=== PATIENT | female | born 1955 | race Caucasian/White ===

== ENCOUNTER 2018-03-17 02:49 | Emergency (ER) | payer MEDICAID ==
[~2018-03-17] VITALS: Ht 170.2 cm; Wt 51.7 kg
[~2018-03-17 02:49] MED LIST: CARB200T PO; HALO0.5T4 PO; HALO2TAB7 GT; LEVE250T2 PO; QUET400T PO; QUET400T3
[2018-03-17 02:56] VITALS: BP 130/78
[2018-03-17] MEDS ORDERED: ONDANSETRON 4 MG TAB.RAPDIS ONE (03:23)
[2018-03-17] MEDS ORDERED: IBUPROFEN 400 MG TABLET ONE (03:23)
[2018-03-17] MEDS ORDERED: IBUPROFEN 400 MG TABLET PO ONE (03:30)
[2018-03-17] MEDS ORDERED: ONDANSETRON 4 MG TAB.RAPDIS SL ONE (03:30)
[2018-03-17 04:12] LABS: BASOPHILS % (AUTO) 0.5 % (0.0-2.0); EOSINOPHILS % (AUTO) 0.1 % (0.0-6.0); HEMATOCRIT 36 % (33-45); HEMOGLOBIN 12.1 g/dL (11.5-14.8); LYMPHOCYTES # (AUTO) 1.1 /CMM (0.8-4.8); LYMPHOCYTES % (AUTO) 27.7 % (20.0-44.0); MEAN CORPUSCULAR HGB CONC 34 g/dl (31.0-36.0); MEAN CORPUSCULAR VOLUME 87 fL (82-100); MONOCYTES # (AUTO) 0.5 /CMM (0.1-1.30); MONOCYTES % (AUTO) 12.5 % (2.0-12.0); NEUTROPHILS # (AUTO) 2.3 /CMM (1.8-8.9); NEUTROPHILS % (AUTO) 59.2 % (43.0-81.0); PLATELET COUNT (AUTO) 133 /CMM (150-450); RDW COEFFICIENT OF VARIATION 15.1 (11.5-15.0); RED BLOOD CELL COUNT(AUTO) 4.14 MIL/uL (4.0-5.2); WHITE BLOOD COUNT (AUTO) 3.8 K/uL (4.3-11.0)
[2018-03-17 04:29] LABS: BILIRUBIN,DIRECT 0.1 mg/dL (0.0-0.2); BILIRUBIN,TOTAL 0.3 mg/dL (0.2-1.0); CALCIUM, SERUM 8.5 mg/dL (8.5-10.1); CREATININE 0.6 mg/dL (0.6-1.3); POTASSIUM 3.6 mmol/L (3.5-5.1); TOTAL PROTEIN, SERUM 7.2 g/dL (6.4-8.2)
== END 2018-03-17 05:43 | disposition home or self-care (01) ==
LOC: ER 02:50
DX: M54.2 Cervicalgia (principal); R10.10 Upper abdominal pain, unspecified; K70.9 Alcoholic liver disease, unspecified; G40.909 Epilepsy, unspecified, not intractable, without status epilepticus; F32.9 Major depressive disorder, single episode, unspecified; F17.210 Nicotine dependence, cigarettes, uncomplicated; Z90.49 Acquired absence of other specified parts of digestive tract
CPT/HCPCS: 36415; 80048-TC; 80076-TC; 83690-TC; 85025-TC; A4606; Q0162; Z7610

== ENCOUNTER 2018-03-17 14:09 | Emergency (ER) | payer MEDICAID ==
[~2018-03-17] VITALS: Ht 170.2 cm; Wt 54.0 kg
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
--- NOTE | 2018-03-17 15:10 | NUR ---
electroencephalogram technologist at bedside.
--- NOTE | 2018-03-17 16:50 | NUR ---
Patient discharged to home in stable condition. Written and verbal after care instructions given. Patient verbalizes understanding of instruction.Refused placement,able to transfer to her W/C and wheeled herself out of ER
[2018-03-17 16:56] VITALS: BP 118/72
--- NOTE | 2018-03-17 16:57 | NUR ---
Patient discharged to home in stable condition. Written and verbal after care instructions given. Patient verbalizes understanding of instruction.
== END 2018-03-17 16:56 | disposition home or self-care (01) ==
LOC: ER 14:13
DX: M25.551 Pain in right hip (principal); G40.909 Epilepsy, unspecified, not intractable, without status epilepticus; F32.9 Major depressive disorder, single episode, unspecified; F20.9 Schizophrenia, unspecified; F17.200 Nicotine dependence, unspecified, uncomplicated; F10.10 Alcohol abuse, uncomplicated; Z90.49 Acquired absence of other specified parts of digestive tract
CPT/HCPCS: 73502; A4606; Z7610

== ENCOUNTER 2018-03-28 08:19 | Emergency (ER) | payer MEDICAID ==
[~2018-03-28] VITALS: Ht 154.9 cm; Wt 60.3 kg
--- NOTE | 2018-03-28 08:40 | NUR ---
ASSISTED PT TO BED BAZAN TO URINATE. PT NOTED ABLE TO MOVE EXTREMITIES WITHOUT ANY DIFFICULTIES.
--- NOTE | 2018-03-28 08:50 | NUR ---
NO NOTED BRUISING/ INJURIES ON THE ENTIRE BODY. ABLE TO MOVE WITHOUT ANY DIFFICULTIES. AWARE.
[2018-03-28] MEDS ORDERED: ACETAMINOPHEN 325 MG TABLET PO ONE (09:00)
--- NOTE | 2018-03-28 09:30 | NUR ---
SHY OFFICERS AT BS.
--- NOTE | 2018-03-28 11:12 | NUR ---
PT KICKING AND SCREAMING AT STAFF, USING PROFANITY WORDS. TRIED TO CALMED HER DOWN BUT KEPT SCREAMING AND DEMANDING FOR FOOD.
--- NOTE | 2018-03-28 11:29 | NUR ---
ROBBY CORPORATE INVESTIGATOR AT BS.
--- NOTE | 2018-03-28 11:35 | NUR ---
SW received a call from ED requesting for SW to offer resources to pt. prior to discharge. SW met with pt. bedside. Pt. is alert and oriented x 3. Pt. appears unkempt and disheveled. Pt. informed SW she has an SS worker who is usually with her, but is out sick. Pt. states she wants to go to [place] [facility] and wants something to eat. Pt. states she is unable to ambulate and has been wheelchair bound, however per staff pt. is ambulatory. JEREMIAS informed pt. she will get her a bus token to get to [place] and [employer] since is medically cleared for discharge. Pt. became belligerent, yelling at saying " I am not going anywhere, can't you see I cannot walk for 11 years". Pt. kept on insisting that she has a wheelchair, however pt. arrived without one. Pt. continued to yell at and is refusing to leave the hospital. ED CRN Cy and pt' s RN Talha were informed to pt's behavior.
--- NOTE | 2018-03-28 11:40 | NUR ---
PT NON-COMPLIANT WITH CARE. REFUSES TO COOPERATE. MD AWARE. REFUSES TO BE DISCHARGED.
--- NOTE | 2018-03-28 14:00 | NUR ---
PT REFUSES TO HAVE HER VS CHECKED.
--- NOTE | 2018-03-28 15:30 | NUR ---
PT NOTED WALKED TO THE RESTROOM. NOTED AMBULATORY IN A STEADY GAIT.
[2018-03-28 15:53] VITALS: BP 138/74
== END 2018-03-28 15:55 | disposition home or self-care (01) ==
LOC: ER 08:22
DX: M25.511 Pain in right shoulder (principal); F20.9 Schizophrenia, unspecified; G40.909 Epilepsy, unspecified, not intractable, without status epilepticus; F31.9 Bipolar disorder, unspecified; F10.10 Alcohol abuse, uncomplicated; F17.200 Nicotine dependence, unspecified, uncomplicated; Z98.890 Other specified postprocedural states; Z59.0 Homelessness
CPT/HCPCS: A4606; Z7610

== ENCOUNTER 2018-03-29 19:21 | Emergency (ER) | payer MEDICAID ==
[~2018-03-29] VITALS: Ht 162.6 cm; Wt 59.9 kg
--- NOTE | 2018-03-29 19:40 | NUR ---
pt refuse blood draw. glenna walden made aware.
[2018-03-29] MEDS ORDERED: MAG HYDROX/AL HYDROX/SIMETH 30 ML UDC ONE (19:51)
--- NOTE | 2018-03-29 19:52 | NUR ---
noted pt eating hot cheetos despite being told not to eat or dring until all results comes back. er md made aware.
[2018-03-29] MEDS ORDERED: MAG HYDROX/AL HYDROX/SIMETH 30 ML UDC PO ONE (20:00)
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
--- NOTE | 2018-03-29 21:08 | NUR ---
Patient discharged to home in stable condition. Written and verbal after care instructions given. Patient verbalizes understanding of instruction.
[2018-03-29 21:20] VITALS: BP 131/64
== END 2018-03-29 21:21 | disposition home or self-care (01) ==
LOC: ER 19:22
DX: R10.84 Generalized abdominal pain (principal); G89.29 Other chronic pain; G40.909 Epilepsy, unspecified, not intractable, without status epilepticus; F31.9 Bipolar disorder, unspecified; F25.9 Schizoaffective disorder, unspecified; F17.200 Nicotine dependence, unspecified, uncomplicated; F10.10 Alcohol abuse, uncomplicated; Z98.890 Other specified postprocedural states
CPT/HCPCS: 74021; A4606; Z7610

== ENCOUNTER 2018-04-01 04:09 | Emergency (ER) | payer MEDICAID ==
[~2018-04-01] VITALS: Ht 165.1 cm; Wt 72.6 kg
[2018-04-01 04:09] VITALS: BP 139/53
[2018-04-01] MEDS ORDERED: METRONIDAZOLE 500 MG TABLET PO ONE (04:30)
[2018-04-01] MEDS ORDERED: CEFTRIAXONE 500 MG VIAL IM ONE (04:30)
[2018-04-01] MEDS ORDERED: AZITHROMYCIN 250 MG TABLET PO ONE (04:30)
[2018-04-01] MEDS ORDERED: METRONIDAZOLE 500 MG TABLET ONE (04:37)
[2018-04-01] MEDS ORDERED: AZITHROMYCIN 250 MG TABLET ONE (04:37)
[2018-04-01] MEDS ORDERED: CEFTRIAXONE 500 MG VIAL ONE (04:41)
[2018-04-01] MEDS ORDERED: LIDOCAINE /MPF 1% VIAL 5 ML VIAL ONE (04:41)
== END 2018-04-01 05:00 | disposition home or self-care (01) ==
LOC: ER 04:15
DX: G40.909 Epilepsy, unspecified, not intractable, without status epilepticus (principal); F31.9 Bipolar disorder, unspecified; F25.9 Schizoaffective disorder, unspecified; F10.10 Alcohol abuse, uncomplicated; F17.200 Nicotine dependence, unspecified, uncomplicated
CPT/HCPCS: A4606; J0696; J3490; Z7610

== ENCOUNTER 2018-04-02 19:57 | Inpatient (IN) | payer MEDICAID ==
[~2018-04-02] VITALS: Ht 167.6 cm; Wt 68.0 kg
--- NOTE | 2018-04-02 20:05 | NUR ---
TRIAGED AND PLACED IN LOBBY AT THIS TIME AFTER C/O "I HAVE PAIN WHICH IS ALWAYS THERE". DENIES RECENT INJURY. NO S/S OF ACUTE DISTRESS NOTED AT THIS TIME. RESP EVEN AND UNLABORED. INFORMED PT WILL BE ASSIGNED ROOM SOON ONE IS AVAILABLE.
--- NOTE | 2018-04-02 21:38 | NUR ---
PT NOTED SLEEPING IN LOBBY AND WHEN WOKEN UP STARTS YELLING "LEAVE ME ALONE".
--- NOTE | 2018-04-02 22:59 | NUR ---
PT URINATED ON FLOOR. SECURITY AND NURSE ATTEMPTED TO ASSIST PT BUT PT STARTED USING AGGRESSIVE LANGUAGE "FUCK YOU".
--- NOTE | 2018-04-02 23:54 | NUR ---
PT REMAINS RESTING WITH EYES CLOSED SNORING AND STILL WHEN AWAKENED FOR ROOM ASSIGNMENT SCREAMS LOUD IN LOBBY "WHAT DO YOU WANT FROM ME, LEAVE ME ALONE".
--- NOTE | 2018-04-03 02:10 | NUR ---
PT AGREES TO GO TO ROOM. WC ACCESS PROVIDED. REFUSES TO WEAR GOWN AND TO GET IN BED.
[2018-04-03] MEDS ORDERED: HYDROCODONE/APAP 10/325MG 1 EA TABLET ONE (02:46)
[2018-04-03] MEDS ORDERED: HYDROCODONE/APAP 10/325MG 1 EA TABLET PO ONE (03:00)
--- NOTE | 2018-04-03 03:00 | NUR ---
AGREES TO WEAR GOWNAND GO FOR CT SCAN AFTER RECEIVING MEDICATION.
--- NOTE | 2018-04-03 04:45 | NUR ---
REFUSES IV HL FOR ADMISSION. ASKS FOR SANDWICH AND WARM BLANKET. MD NOTIFIED.
[2018-04-03] MEDS ORDERED: MORPHINE SULFATE INJ 4 MG/ML DISP.SYRIN IV PRN (05:30)
[2018-04-03] MEDS ORDERED: ZOLPIDEM TARTRATE 5 MG TABLET PO PRN (05:30)
[2018-04-03] MEDS ORDERED: ACETAMINOPHEN 325 MG TABLET PO PRN (05:30)
[2018-04-03] MEDS ORDERED: ONDANSETRON HCL/PF 4 MG/2 ML VIAL IVP PRN (05:30)
[2018-04-03] MEDS ORDERED: MAGNESIUM HYDROXIDE 30 ML UDC PO PRN (05:30)
[2018-04-03] MEDS ORDERED: Z GUARD REMEDY 2 OZ OINT TP PRN (05:30)
[2018-04-03] MEDS ORDERED: MAG HYDROX/AL HYDROX/SIMETH 30 ML UDC PO PRN (05:30)
--- NOTE | 2018-04-03 05:30 | NUR ---
AWAITING INSURANCE MD TO CALL BACK.
--- NOTE | 2018-04-03 05:48 | NUR ---
DR. ROCHA SPEAKING TO DR. SIMON ABOUT TRANSFER.
--- NOTE | 2018-04-03 06:08 | NUR ---
STILL AWAITING CALL ABCK FROM [employer]FT FUEL[employer]. PT UPDATED.
--- NOTE | 2018-04-03 06:46 | NUR ---
PER CHARGE NURSE "THE MEDICAL DOCTOR WILL CALL BACK HERE".
--- NOTE | 2018-04-03 07:21 | NUR ---
CALL FROM [facility]. PLANNING ON TRANSFERING PATIENT TO [facility]. FACESHEET AND CHART FAXED TO [phone]
--- NOTE | 2018-04-03 07:30 | NUR ---
RECEIVED REPORT FOR AUDELIA.
[2018-04-03] MEDS: LEVETIRACETAM (250 MG) 250 MG TABLET PO SCH ×2 (09:00→16:21)
[2018-04-03] MEDS: CARBAMAZEPINE 200 MG TABLET PO SCH ×2 (09:00→16:21)
[2018-04-03] MEDS ORDERED: QUETIAPINE FUMARATE 600 MG SCH (09:00)
[2018-04-03] MEDS ORDERED: HYDROCODONE/APAP 5/325MG 1 EACH TABLET ONE (11:02)
[2018-04-03] MEDS ORDERED: HYDROCODONE/APAP 5/325MG 1 EACH TABLET PO PRN (11:30)
--- NOTE | 2018-04-03 12:38 | NUR ---
REPORT GIVEN TO SAMSON GIBBS FOR AUDELIA.
--- NOTE | 2018-04-03 12:44 | NUR ---
PATIENT TRANSPORTED TO [facility] VIA STRETCHER. RNSAMSON TO PROVIDE AUDELIA.
[2018-04-03 13:00] VITALS: BP 143/57
--- NOTE | 2018-04-03 13:00 | NUR ---
NAPHTHALENE STILL OPERATOR PATIENT A/OX3, BREATHING EVEN AND UNLABORED, PATIENT STILL COMPLAINING OF GENERALIZED PAIN. NO DISTRESS NOTED, PATIENT REFUSES TO HAVE PERIPHERAL IV INSERTED. PATIENT REFUSED ANY ASSESSMENT AT THIS TIME. KEPT PATIENT COMFORTABLE, CALL LIGHT WITHIN [facility], WILL CONTINUE TO MONITOR.
[2018-04-03 13:15] VITALS: BP 143/57
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
--- NOTE | 2018-04-03 14:45 | NUR ---
RN NOTES PATIENT AGREED TO HAVE SKIN ASSESSMENT ON HER FRONT SIDE, BUT PATIENT REFUSED ASSESSMENT ON HER BACK SIDE AND LEGS. PER PATIENT, SHE'S IN TOO MUCH PAIN, BUT I SAW PATIENT MOVE HER BLE. PATIENT EATING AT THIS TIME. OFFERED ASSISTANCE WITH ADL CARE BUT PATIENT REFUSED. EXPLAINED RISKS AND BENEFITS. NEEDS ATTENDED AND MET, CALL LIGHT WITHIN REACH, WILL CONTINUE TO MONITOR.
[2018-04-03 15:29] VITALS: BP 114/65
[2018-04-03] MEDS ORDERED: QUETIAPINE FUMARATE 100 MG TABLET PO SCH ×2 (17:00→22:00)
--- NOTE | 2018-04-03 18:20 | NUR ---
RN NOTES PATIENT RESTING, NO BEHAVIORAL DISTURBANCE AT THIS TIME, ATE DINNER AND TOLERATED WELL. STILL REFUSING IV AND COMPLETE BODY SKIN ASSESSMENT. PATIENT IS IN NO DISTRESS, NEEDS ATTENDED, CALL LIGHT WITHIN REACH, WILL ENDORSE TO CUTTING AND PRINTING MACHINE OPERATOR FOR AUDELIA.
--- NOTE | 2018-04-03 19:35 | NUR ---
RN OPENING NOTES [facility] SAMSON. FOUND Pt ASLEEP IN BED. NO S/S OF ACUTE DISTRESS OR SOB NOTED. RESPIRATIONS EVEN AND UNLABORED WITH EQUAL CHEST RISE AND FALL. Pt IS KNOWN TO BE A/OX3, VERBAL, ABLE TO MAKE NEEDS KNOWN. Pt IS REFUSING IV ACCESS, MD AWARE. SAFETY MEASURES IN PLACE. BED LOW, LOCKED, HOB ELEVATED, SIDE RAILS UP, CALL LIGHT AND BEDSIDE TABLE WITHIN REACH. WILL CONTINUE TO MONITOR Pt THROUGHOUT THE NIGHT.
[2018-04-03 20:00] VITALS: BP 110/64
[2018-04-03] MEDS: QUETIAPINE FUMARATE 100 MG TABLET PO SCH (22:00)
--- NOTE | 2018-04-03 22:00 | NUR ---
RN NOTES Pt DID NOT WANT TO WAKE UP AND TAKE HER SCHEDULED SEROQUEL. TRIED TO ASK Pt 2 MORE TIMES, BUT Pt CONTINUED TO REFUSE TO SIT UP TO TAKE MED, AND KEPT CLOSING HER EYES TO SLEEP. RETURNED MED.
--- NOTE | 2018-04-04 05:01 | NUR ---
RN NOTES Pt REFUSED AM LAB DRAW THIS AM. WILL TRY AGAIN LATER WHEN Pt IS MORE AWAKE.
--- NOTE | 2018-04-04 06:21 | NUR ---
RN CLOSING NOTES NO SIGNIFICANT CHANGES IN Pt's CONDITION. Pt REMAINS STABLE AT THIS TIME. NO S/S OF ACUTE DISTRESS OR SOB NOTED DURING THE SHIFT. Pt SLEPT WELL WITH EVEN AND UNLABORED RESPIRATIONS. ALL NEEDS MET AND ATTENDED TO. SAFETY MEASURES IN PLACE. WILL ENDORSE TO DAYSHIFT RN FOR Pt's AUDELIA.
--- NOTE | 2018-04-04 07:38 | NUR ---
MS RN OPENING NOTES RECEIVED PT FROM NIGHTSHIFT NURSE IN STABLE CONDITION. PT IS A/O X3. NO SOB OR ACUTE SIGNS OF DISTRESS. BREATHING IS EVEN AND UNLABORED. NO IV PRESENT PT HAS REFUSED. MADE AWARE ACCORDING TO THE NIGHTSHIFT NURSE. PT ALSO REFUSED AM LAB DRAWS. BED IN LOW LOCKED POSITION, SIDE RAILS X 2 CALL LIGHT WITHIN REACH, BED ALARM ON. WILL CONTINUE TO MONITOR
[2018-04-04 08:00] VITALS: BP 127/70
[2018-04-04] MEDS: LEVETIRACETAM (250 MG) 250 MG TABLET PO SCH ×2 (09:00→16:46)
[2018-04-04] MEDS: QUETIAPINE FUMARATE 100 MG TABLET PO SCH ×3 (09:22→21:36)
[2018-04-04] MEDS: CARBAMAZEPINE 200 MG TABLET PO SCH ×2 (09:23→16:58)
[2018-04-04] MEDS: HYDROCODONE/APAP 5/325MG 1 EACH TABLET PO PRN (09:36)
--- NOTE | 2018-04-04 10:11 | NUR ---
MS RN NOTES: PAIN MANAGEMENT DR. TEJADA MADE AWARE THAT PT'S CURRENT PAIN MANAGEMENT IS INEFFECTIVE. PER DR. TEJADA " GIVE HER AN EXTRA DOSE OF NORCO 5/325 AND ORDER NORCO 10/325 PRN Q6HR"
[2018-04-04] MEDS ORDERED: HYDROCODONE/APAP 10/325MG 1 EA TABLET PO PRN (10:30)
[2018-04-04 15:50] VITALS: BP 101/68
--- NOTE | 2018-04-04 18:29 | NUR ---
MS RN CLOSING NOTES PT REMAINS STABLE. ALL NEEDS WERE MET DURING SHIFT AND ORDERS CARRIED OUT ACCORDINGLY. ALL DUE MEDS GIVEN WITH THE EXCEPTION OF THOSE WHICH SHE REFUSED. PT FURTHER REFUSED ALL BLOOD DRAWS. PAIN PROPERLY MANAGED WITH PO NORCO. NO ACUTE CHANGES IN CONDITION THROUGHOUT SHIFT. SAFETY MEASURERS REMAIN IN PLACE. WILL ENDORSE TO NIGHTSHIFT NURSE FOR AUDELIA
--- NOTE | 2018-04-04 20:22 | NUR ---
RECIEVED MS HAIDER ASLEEP IN HER BED SEMIFOWLERS POSITION. PRODUCT/INDUSTRY CONSULTANT ATTEMPTED TO TAKE AWAY HER DINNER TRAY AND SHE REFUSED TO LET IT GO STATING SHE WILL EAT IT LATER. RESP EVEN AND UNLABORED. SKIN WARM AND DRY.
[2018-04-04 20:38] VITALS: BP 106/76
--- NOTE | 2018-04-05 04:18 | NUR ---
CLOSING NOTES: mS. MALONEY SLEPT THRU MOST OF THE SHIFT ONLY AWAKENING TO GO USE THE BSC OR TO TAKE BITES FROM HER DINNER TRAY THEN GOING BACK TO SLEEP. I WOKE HER AND WAS ABLE TO CONVINVE HER TO DRINK A CARTON OF APPLE JUICE. SHE SWALLOW W/O PROBLEMS. NOTED SHE CHANGES HER OWN POSITION NOTING NO INDICATION OF PAIN EXPRESSED. A GOOD AND COMFORTABLE NIGHT
--- NOTE | 2018-04-05 07:30 | NUR ---
RN NOTES RECEIVED PATIENT AWAKE ALERT AND VERBALLY RESPONSIVE, ABLE TO MAKE NEEDS KNOWN. PATIENT NOTED WITH PERIODS OF FORGETFULNESS. RESPIRATIONS EVEN AND UNLABORED, IN NO APPARENT PAIN OR DISCOMFORT AT THIS TIME. NO IV SITE AT THIS TIME, MD AWARE, PATIENT REMINDED TO USE CALL LIGHT WITHIN EASY REACH, BED ALARM ON. CALL LIGHT WITHIN EASY REACH, WILL CONTINUE TO MONITOR.
[2018-04-05 08:00] VITALS: BP 133/79
--- NOTE | 2018-04-05 08:19 | NUR ---
WOUND CARE CONSULT WOUND CARE RECEIVED CONSULT FOR LEFT AND RIGHT UNDER BREAST REDNESS. WOUND CARE WILL DEFER TO SURGICAL TEAM WHO ARE CURRENTLY FOLLOWING. PATIENT WITH ALIDA AT 14. ALL PRESSURE ULCER PREVENTION MEASURES NOTED TO BE IN PLACE. THERE ARE CURRENT TREATMENT ORDERS IN PLACE.
[2018-04-05] MEDS: QUETIAPINE FUMARATE 100 MG TABLET PO SCH ×3 (08:35→21:09)
[2018-04-05] MEDS: CARBAMAZEPINE 200 MG TABLET PO SCH ×2 (08:35→16:45)
[2018-04-05] MEDS: LEVETIRACETAM (250 MG) 250 MG TABLET PO SCH ×3 (08:35→16:44)
[2018-04-05] MEDS: NYSTATIN TOP POWDER 15 GM BOTTLE TP SCH (09:00)
--- NOTE | 2018-04-05 09:30 | NUR ---
RN NOTES PT REFUSED ABEL WILL CONTINUE TO MONITOR AND REINFORCE EDUCATION Addendum: 04/05/18 at 1127 by MODESTA ESTRADA RN Amended: Links added. Addendum: 04/05/18 at 1847 by MODESTA ESTRADA RN RN NOTES PATIENT ALSO REFUSING MD JOSE WARE, WILL CONTINUE TO MONITOR OFFERED X3 AND NURSING EDUCATION REINFORCED
[2018-04-05 16:00] VITALS: BP 128/72
--- NOTE | 2018-04-05 18:48 | NUR ---
RN CLOSING NOTES PATIENT ASLEEP EASILY AROUSABLE DURING CARE, ABLE TO MAKE NEEDS KNOWN NOTED WITH PERIODS OF FORGETFULNESS. RESPIRATIONS EVEN AND UNLABORED, IN NO APPARENT PAIN OR DISCOMFORT AT THIS TIME. NO IV SITE AT THIS TIME, MD AWARE, PATIENT REMINDED TO USE CALL LIGHT WITHIN EASY REACH, BED ALARM ON. CALL LIGHT WITHIN EASY REACH, WILL CONTINUE TO MONITOR AND ENDORSE TO NEXT SHIFT FOR CONTINUITY OF CARE
--- NOTE | 2018-04-05 19:46 | NUR ---
RECIEVING NOTES: MS. MALONEY IS IN BED. SEMIFOWLERS POSITION. RESP EVEN AND UNLABORED. SHE IS ASLEEP. WHEN NAME SPOKEN SHE OPENED HER EYES AND LOUDLY SAID."WHAT DO YOU WANT?". THEN WENT BACK TO SLEEP. CALL LIGHT PLACED WITHIN REACH AND SO THAT SHE CAN SEE IT IF NEEDED, BED ALARM ON FOR HER SAFETY. NOTED ON THE FLOOR SHE HAS THROWN FOOD DOWN
[2018-04-05 20:00] VITALS: BP 127/75
[2018-04-05 20:28] VITALS: BP 127/75
--- NOTE | 2018-04-06 04:33 | NUR ---
CLOSING NOTES: MS. MALONEY SLEPT THIS 12 HOURS ONLY TO AWAKEN TO EAT 1/2 SANDWITCH AND JUICE, AND US THE BEDSIDE COMMODE X2. SHE WILL VERBALIZE WITH WORDS AND TONE WHEN AWAKENED BY THE NURSE.HER RESP ARE EVEN AND UNLABORED. NO COMPLAINTS OF PAIN NO ANALGESIC REQUISTED OR APPEARED TO BE NEEDED
--- NOTE | 2018-04-06 07:25 | NUR ---
RN OPENING NOTES RECEIVED PATIENT AWAKE ALERT AND VERBALLY RESPONSIVE, ABLE TO MAKE NEEDS KNOWN. PATIENT NOTED WITH PERIODS OF FORGETFULNESS. RESPIRATIONS EVEN AND UNLABORED, IN NO APPARENT PAIN OR DISCOMFORT AT THIS TIME. NO IV SITE AT THIS TIME, MD AWARE, PATIENT REMINDED TO USE CALL LIGHT WHEN ASSISTANCE IS NEEDEED LEFT WITHIN EASY REACH, BED ALARM ON, WILL CONTINUE TO MONITOR.
[2018-04-06 08:00] VITALS: BP 110/71
[2018-04-06] MEDS: LEVETIRACETAM (250 MG) 250 MG TABLET PO SCH ×2 (08:21→17:34)
[2018-04-06] MEDS: QUETIAPINE FUMARATE 100 MG TABLET PO SCH ×3 (08:21→22:00)
[2018-04-06] MEDS: CARBAMAZEPINE 200 MG TABLET PO SCH ×2 (08:22→17:33)
[2018-04-06] MEDS: NYSTATIN TOP POWDER 15 GM BOTTLE TP SCH (08:22)
[2018-04-06 16:00] VITALS: BP 120/76
--- NOTE | 2018-04-06 19:30 | NUR ---
RN MS OPENING NOTES RECEIVED PATIENT IN BED SLEEPING , BUT EASILY AROUSABLE, RESPIRATIONS EVEN AND UNLABORED WITH EQUAL RISE AND FALL OF CHEST, DENIES ANY PAIN OR DISCOMFORT AT THIS TIME, ORIENTED TO STAFF AND CALL LIGHT, CALL LIGHT KEPT WITHIN REACH. BED IN LOW POSITION , LOCKED, CALL ALARM INTACT, FALL PRECAUTIONS IN PLACE, SAFETY MEASURES IN PLACE, FLUIDS OFFERED, ALL NEEDS ATTENDED AT THIS TIME, PATIENT REMAINS COMFORTABLE WILL CONTINUE TO MONITOR.
[2018-04-06 20:00] VITALS: BP 145/85
--- NOTE | 2018-04-06 22:42 | NUR ---
RN MS NOTES PATIENT REFUSED SCHEDULED SEROQUEL MADE AWARE OF MEDICATION AND PURPOSE , STILL REFUSED STATING" IM NOT GOING TO TAKE IT, NO, NO!
--- NOTE | 2018-04-07 02:02 | NUR ---
RN MS NOTES PATIENT COMPLAINT OF STOMACHACHE BLOATING, PRN MAALOX OFFERED , PATIENT AGREED TO TAKE WILL CONTINUE TO MONITOR.
--- NOTE | 2018-04-07 06:39 | NUR ---
RN MS CLOSING NOTES PATIENT IN BED SLEEPING , BUT EASILY AROUSABLE, RESPIRATIONS EVEN AND UNLABORED WITH EQUAL RISE AND FALL OF CHEST, DENIES ANY PAIN OR DISCOMFORT AT THIS TIME, ASSISTED TO BEDSIDE COMMODE,SKIN ASSESSED NOTED WITH BREAST FOLD REDNESS, PINK IN COLOR, NOTED APPEARING DRY, LEFT ELBOW SCAB DRY, LOWER LEGS SKIN INTACT AND DRY. REPOSITIONED,CALL LIGHT KEPT WITHIN REACH. BED IN LOW POSITION , LOCKED, CALL ALARM INTACT, FALL PRECAUTIONS IN PLACE, SAFETY MEASURES IN PLACE, FLUIDS OFFERED, ALL NEEDS ATTENDED AT THIS TIME, PATIENT REMAINS COMFORTABLE WILL CONTINUE TO MONITOR AND ENDORSE TO NEXT SHIFT
--- NOTE | 2018-04-07 07:00 | NUR ---
MSRN OPENING NOTES. PT RECEIVED A&0X2, AWAKE WATCHING T.V. PT REPORTS POOR NIGHT SLEEP AND IS HUNGRY. PT TOLERATING ROOM AIR WITHOUT S/S OR RESP DISTRESS. PT REPORTS MINOR GENERALIZED PAIN BUT DECLINES ANALGESIA AT THIS TIME. PT WITHOUT IVC, ENDORSED MD AWARE. PT BED IN LOWEST LOCKED POSITION WITH HANDRAILSX2 AND CALL BO WITHIN REACH. PT BRIEFED ON TODAY'S POC AND IS WITHOUT CONCERN OR COMPLAINT AT THIS TIME.
[2018-04-07 08:00] VITALS: BP 136/80
[2018-04-07] MEDS: NYSTATIN TOP POWDER 15 GM BOTTLE TP SCH (09:08)
[2018-04-07] MEDS: LEVETIRACETAM (250 MG) 250 MG TABLET PO SCH ×2 (09:08→17:00)
[2018-04-07] MEDS: QUETIAPINE FUMARATE 100 MG TABLET PO SCH ×3 (09:08→21:32)
[2018-04-07] MEDS: CARBAMAZEPINE 200 MG TABLET PO SCH ×2 (09:08→17:00)
[2018-04-07 16:00] VITALS: BP 114/65
--- NOTE | 2018-04-07 17:30 | NUR ---
MSRN NOTES. PT REFUSED AFTERNOON MEDICATIONS.
--- NOTE | 2018-04-07 18:26 | NUR ---
MSRN CLOSING NOTES. PT REMAINS A&0X2, WITH INTERMITTENT CONFUSION AND AGITATION. PT WITH LONG PERIODS OF REST DURING SHIFT. PT TOLERATING ROOM AIR AND REPORTS MINOR GERNALAIZED PAIN BUT DECLINES ANALGESIA. PT WITHOUT IVC AND REFUSED LABS, MD TEJADA AWARE. PT BED IN LOWEST LOCKED POSITION WITH HANDRAILSX2 AND CALL BO WITHIN REACH. ALL DAY NURSE DUTIES ATTENDED TO AND PT IS WITHOUT CONCERN OR COMPLAINT AT THIS TIME. WILL ENDOSRSE TO NIGHT NURSE AT BEDSIDE FOR AUDELIA.
--- NOTE | 2018-04-07 19:36 | NUR ---
MS RN OPENING NOTE Patient was seen sitting upright in bed AAOx2, breathing on RA with no SOB, and no signs of acute distress. Patient is without IV access and is refusing labs; MD is aware, and we are not required to start a new IV unless otherwise indicated. Bedside commode is within reach. Bed is in low/locked position, two side rails up, and call mckinley within reach. Patient's only immediate request is fresh water and snacks, which have been provided. Will continue to monitor.
[2018-04-07 20:00] VITALS: BP 106/72
[2018-04-07] MEDS: HYDROCODONE/APAP 5/325MG 1 EACH TABLET PO PRN (21:33)
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
--- NOTE | 2018-04-08 06:46 | NUR ---
MS RN CLOSING NOTE Patient seen sleeping in bed but awoke to name. Patient is drowsy, oriented x2-3, breathing on RA with no SOB, currently no signs of acute distress. Patient slept well overnight with no complaints. Patient refused AM labs again. Bed is in low/locked position, two side rails up, call mckinley within reach. All patient needs attended to this shift. Patient care has been endorsed to day shift nurse.
--- NOTE | 2018-04-08 09:35 | NUR ---
PATIENT REFUSING AM LABS. OFFERED X2 BY MYSELF AND LAB STAFF MEMBERS
[2018-04-08] MEDS: NYSTATIN TOP POWDER 15 GM BOTTLE TP SCH (10:00)
[2018-04-08] MEDS: LEVETIRACETAM (250 MG) 250 MG TABLET PO SCH ×2 (10:00→10:04)
[2018-04-08] MEDS: QUETIAPINE FUMARATE 100 MG TABLET PO SCH (10:03)
[2018-04-08] MEDS: CARBAMAZEPINE 200 MG TABLET PO SCH (10:04)
--- NOTE | 2018-04-08 10:08 | NUR ---
PATIENT REFUSED KEPRRA AND MYCOSTATIN- BENEFITS AND RISKS EXPLAINED MULTIPLE TIMES. CHAZ OFFERED X5. STILL REFUSING, STATING " I WILL ONLY TAKE THE TEGRETOL."
--- NOTE | 2018-04-08 13:30 | NUR ---
PATIENT DISCHARGED HOME PER DR TEJADA'S ORDERS. PATIENT OFFERED REHABILITATION OPTION. REFUSED EVEN AFTER BENEFITS AND RISKS EXPLAINED. ALL BELONGINGS GIVEN TO PATIENT. PATIENT HAD NO IV LINE THROUGHOUT SHIFT, REFUSED INSERTION. PATIENT NOTED TO HAVE STEADY GAIT WHILE AMBULATING. PATIENT PROVIDED WITH A CANE. EDUCATED ON USAGE. EDUCATED PATIENT ON FOLLOWING UP WITH [facility] PROVIDER INSTRUCTED BY DR TEJADA WELL HER DISCHARGE MEDICATIONS. PATIENT REFUSED SKIN PICTURES TO BE TAKEN PRIOR TO DISCHARGE PATIENT PROVIDED WITH BUS TOKENS, ACCOMPANIED WITH STAFF MEMBER TO EXIST OF HOSPITAL. PATIENT LEFT WITH STEADY GAIT, NONLABORED BREATHING, AND DENYINIG PAIN
== END 2018-04-08 13:00 | disposition home or self-care (01) | DRG 347 ==
LOC: ER 20:13 → MED 04-03 05:48
PROVIDERS: ADMIT Internal Medicine; ATTEND Hospitalist
DX: M48.55XA Collapsed vertebra, not elsewhere classified, thoracolumbar region, initial encounter for fracture (principal); D69.6 Thrombocytopenia, unspecified; F11.20 Opioid dependence, uncomplicated; M41.9 Scoliosis, unspecified; F25.9 Schizoaffective disorder, unspecified; M19.90 Unspecified osteoarthritis, unspecified site; F32.9 Major depressive disorder, single episode, unspecified; Y92.410 Unspecified street and highway as the place of occurrence of the external cause; V89.2XXA Person injured in unspecified motor-vehicle accident, traffic, initial encounter; Z59.0 Homelessness; G40.909 Epilepsy, unspecified, not intractable, without status epilepticus; Z79.899 Other long term (current) drug therapy; Z99.3 Dependence on wheelchair; Z96.642 Presence of left artificial hip joint; G89.4 Chronic pain syndrome; Z90.49 Acquired absence of other specified parts of digestive tract; Z98.890 Other specified postprocedural states; E03.9 Hypothyroidism, unspecified; D63.8 Anemia in other chronic diseases classified elsewhere; F17.200 Nicotine dependence, unspecified, uncomplicated
CPT/HCPCS: 71045-TC; 72070-TC; 72100-TC; 72170-TC; 73060-TC; 73090-TC; 73590-TC; 74018; 87081-TC; A4606; Z7610

== ENCOUNTER 2018-06-29 03:23 | Emergency (ER) | payer MEDICAID ==
[~2018-06-29] VITALS: Ht 170.2 cm; Wt 52.6 kg
[~2018-06-29 03:23] MED LIST changes: -HALO2TAB7 GT
[2018-06-29 03:26] VITALS: BP 154/90
--- NOTE | 2018-06-29 03:26 | NUR ---
PT TO ER BED 11. BIBRA C/O BILAT LEG PAIN X 1 MONTH/UTI X 5 MONTHS. PT PLACED ON RECORDAK OPERATOR. VSS/RESP EVEN UNLABORED/NAD NOTED/SKIN WARM AND DRY/AFEBRILE/DENIES N-V-D/AOX4. AWAITNG MD RICHARDSON.
--- NOTE | 2018-06-29 04:00 | NUR ---
URINE SPECIMEN OBTAINED AND SENT TO THE LAB.
[2018-06-29] MEDS ORDERED: TRAMADOL HCL 50 MG TABLET ONE (04:42)
[2018-06-29 04:48] LABS: APPEARANCE,URINE CLOUDY (CLEAR); BILIRUBIN,URINE NEGATIVE (NEGATIVE); BLOOD, URINE 3+ Ery/uL (NEGATIVE); COLOR,URINE AMBER (YELLOW); KETONES,URINE NEGATIVE (NEGATIVE); LEUKOCYTE ESTERASE ,URINE 1+ (NEGATIVE); NITRITE, URINE NEGATIVE (NEGATIVE); PH,URINE 5.5 (5.0-8.0); PROTEIN,URINE 2+ mg/dl (NEGATIVE); UGLUCOSE NEGATIVE (NEGATIVE)
[2018-06-29 04:52] LABS: BACTERIA,URINE Few /HPF (None Seen); RBC,URINE 21-50 /HPF (0-2); SQUAMOUS EPITHELIAL CELL,UR Moderate /HPF (None Seen); WBC,URINE 81-100 /HPF (0-3)
[2018-06-29] MEDS ORDERED: TRAMADOL HCL 50 MG TABLET PO ONE (05:00)
--- NOTE | 2018-06-29 05:08 | NUR ---
Patient eloped from facility. ER MD notified.
== END 2018-06-29 05:10 | disposition left against medical advice (07) ==
LOC: ER 03:24
DX: M25.562 Pain in left knee (principal); N39.0 Urinary tract infection, site not specified; G40.909 Epilepsy, unspecified, not intractable, without status epilepticus; F31.9 Bipolar disorder, unspecified; F25.9 Schizoaffective disorder, unspecified; F10.10 Alcohol abuse, uncomplicated; F17.200 Nicotine dependence, unspecified, uncomplicated; Y90.9 Presence of alcohol in blood, level not specified; Z59.0 Homelessness
CPT/HCPCS: 80305; 81000-TC; 87086-TC; 87186-TC; A4606; Z7610

== ENCOUNTER 2018-07-06 02:22 | Emergency (ER) | payer MEDICAID ==
[~2018-07-06] VITALS: Ht 170.2 cm; Wt 51.7 kg
--- NOTE | 2018-07-06 02:26 | NUR ---
PT TO ER BED 13. BIBRA[address], PT STATES +SI -HI PLAN TO JUMP INTO TRAFFIC. PT PLACED ON SITE MONITOR. VSS/RESP EVEN UNLABORED/NAD NOTED/SKIN WARM AND DRY/AFEBRILE/DENIES N-V-D/AOX4. AWAITNG MD RICHARDSON.
--- NOTE | 2018-07-06 02:35 | NUR ---
LAB AT BEDSIDE FOR LAB.
[2018-07-06 02:49] LABS: BASOPHILS % (AUTO) 0.4 % (0.0-2.0); EOSINOPHILS % (AUTO) 0.1 % (0.0-6.0); HEMATOCRIT 37 % (33-45); HEMOGLOBIN 12.5 g/dL (11.5-14.8); LYMPHOCYTES % (AUTO) 19.5 % (20.0-44.0); MEAN CORPUSCULAR HEMOGLOBIN 31 PG (26.0-33.0); MEAN CORPUSCULAR HGB CONC 34 g/dl (31.0-36.0); MEAN CORPUSCULAR VOLUME 91 fL (82-100); MONOCYTES # (AUTO) 0.6 /CMM (0.1-1.30); MONOCYTES % (AUTO) 11.1 % (2.0-12.0); NEUTROPHILS # (AUTO) 3.6 /CMM (1.8-8.9); NEUTROPHILS % (AUTO) 68.9 % (43.0-81.0); PLATELET COUNT (AUTO) 158 /CMM (150-450); RDW COEFFICIENT OF VARIATION 13.5 (11.5-15.0); RED BLOOD CELL COUNT(AUTO) 4.08 MIL/uL (4.0-5.2); WHITE BLOOD COUNT (AUTO) 5.2 K/uL (4.3-11.0)
[2018-07-06 03:02] LABS: ALANINE AMINOTRANSFERASE 53 U/L (12-78); ALBUMIN 3.2 g/dL (3.4-5.0); ALCOHOL, BLOOD < 3 mg/dL (0-0); ALKALINE PHOSPHATASE 248 U/L (46-116); ASPARTATE AMINOTRANSFERASE 55 U/L (15-37); BILIRUBIN,DIRECT 0.3 mg/dL (0.0-0.2); BILIRUBIN,TOTAL 0.7 mg/dL (0.2-1.0); CALCIUM, SERUM 8.5 mg/dL (8.5-10.1); CARBON DIOXIDE 29 mmol/L (21-32); CHLORIDE 106 mmol/L (98-107); CREATININE 0.6 mg/dL (0.6-1.3); GLUCOSE 94 mg/dL (74-106); POTASSIUM 3.9 mmol/L (3.5-5.1); SODIUM SERUM 140 mmol/L (136-145); TOTAL PROTEIN, SERUM 7.5 g/dL (6.4-8.2); UREA NITROGEN, BLOOD 12 mg/dL (7-18)
[2018-07-06 03:05] LABS: ACETAMINOPHEN 0 ug/ml (10-30); SALICYLATE 2.6 mg/dL (2.8-20.0)
--- NOTE | 2018-07-06 04:12 | NUR ---
PT RESTING QUIETLY, AROUSES EASILY TO VOICE. RN TO CONTINUE MONITORING PROVING PATIENT WITH SAFETY/COMFORT MEASURES.
--- NOTE | 2018-07-06 06:13 | NUR ---
URINE SPECIMEN COLLECTED. CALLED LAB FOR CARDIAC CATHETERIZATION TECHNOLOGIST
[2018-07-06 06:20] LABS: APPEARANCE,URINE CLOUDY (CLEAR); BILIRUBIN,URINE NEGATIVE (NEGATIVE); BLOOD, URINE 1+ Ery/uL (NEGATIVE); COLOR,URINE YELLOW (YELLOW); KETONES,URINE NEGATIVE (NEGATIVE); LEUKOCYTE ESTERASE ,URINE 3+ (NEGATIVE); NITRITE, URINE NEGATIVE (NEGATIVE); PROTEIN,URINE NEGATIVE (NEGATIVE); UGLUCOSE NEGATIVE (NEGATIVE)
--- NOTE | 2018-07-06 06:39 | NUR ---
NO CHANGES. PT RESTING QUIETLY, AROUSES EASILY TO VOICE. RN TO CONTINUE MONITORING PROVING PATIENT WITH SAFETY/COMFORT MEASURES.
[2018-07-06 07:36] LABS: BACTERIA,URINE Few /HPF (None Seen); SQUAMOUS EPITHELIAL CELL,UR Few /HPF (None Seen); WBC,URINE TOO NUMEROUS TO COUN /HPF (0-3)
--- NOTE | 2018-07-06 08:11 | NUR ---
CALLED PINKY FOR PSYCH EVAL
[2018-07-06] MEDS ORDERED: TRAMADOL HCL 50 MG TABLET ONE (08:58)
[2018-07-06] MEDS ORDERED: IBUPROFEN 600 MG TABLET PO ONE (08:58)
[2018-07-06] MEDS ORDERED: TRAMADOL HCL 50 MG TABLET PO ONE (09:00)
[2018-07-06] MEDS ORDERED: IBUPROFEN 400 MG TABLET PO ONE (09:00)
[2018-07-06] MEDS ORDERED: LORAZEPAM INJ 2 MG/ML VIAL ONE (10:40)
[2018-07-06] MEDS ORDERED: HALOPERIDOL LACTATE INJ 5 MG/ML VIAL ONE (10:40)
[2018-07-06] MEDS ORDERED: LORAZEPAM INJ 2 MG/ML VIAL IM ONE (11:00)
[2018-07-06] MEDS ORDERED: HALOPERIDOL LACTATE INJ 5 MG/ML VIAL IM ONE (11:00)
[2018-07-06 11:01] VITALS: BP 139/80
--- NOTE | 2018-07-06 11:08 | NUR ---
REPORT GIVEN TO SAI SOLIMAN.
--- NOTE | 2018-07-06 11:18 | NUR ---
CALLED SAMANTHA FOR BLS TRANSPORT TO [facility]. ETA: [phone] REF#: [id number]
== END 2018-07-06 13:52 ==
LOC: ER 02:23
DX: R45.851 Suicidal ideations (principal); G40.909 Epilepsy, unspecified, not intractable, without status epilepticus; F31.9 Bipolar disorder, unspecified; F25.9 Schizoaffective disorder, unspecified; F10.10 Alcohol abuse, uncomplicated; F17.200 Nicotine dependence, unspecified, uncomplicated; Z90.49 Acquired absence of other specified parts of digestive tract; Y90.0 Blood alcohol level of less than 20 mg/100 ml
CPT/HCPCS: 36415; 80048; 80076; 80305; 80329; 81001; 85025; 87086; 96372 ×2; 99285; A4606; G0480 ×2; J1630; J2060; Z7610; 81000-TC

== ENCOUNTER 2018-08-20 16:11 | Emergency (ER) | payer OTHER, MEDICAID ==
[~2018-08-20] VITALS: Ht 162.6 cm; Wt 59.0 kg
[2018-08-20 16:11] VITALS: BP 125/81
--- NOTE | 2018-08-20 19:31 | NUR ---
INFORMED BY ADMITTING "PT LEFT LONG TIME AGO"
== END 2018-08-20 19:37 | disposition home or self-care (01) ==
LOC: ER 16:27
DX: Z53.21 Procedure and treatment not carried out due to patient leaving prior to being seen by health care provider (principal); M79.641 Pain in right hand
CPT/HCPCS: A4606; Z7610

== ENCOUNTER 2018-12-10 22:39 | Emergency (ER) | payer MEDICAID, OTHER ==
[~2018-12-10] VITALS: Ht 157.5 cm; Wt 59.0 kg
[~2018-12-10 22:39] MED LIST changes: +HALO0.5T2 PO; -HALO0.5T4 PO; -QUET400T3; +QUET400T5
[2018-12-11] VITALS: BP 131/59
--- NOTE | 2018-12-11 00:17 | NUR ---
CALLED SHY, WAS TOLD BY [employer] THAT [place] [employer] WOULD BE CALLED TO TRY AND GET A CURTESY REPORT DONE. AWAITING CALL BACK FROM [employer]
[2018-12-11] MEDS ORDERED: KETOROLAC TROMETHAMINE INJ 60 MG/2 ML VIAL IM ONE ×2 (00:30→00:36)
[2018-12-11 00:32] LABS: APPEARANCE,URINE CLEAR (CLEAR); BILIRUBIN,URINE NEGATIVE (NEGATIVE); BLOOD, URINE NEGATIVE Ery/uL (NEGATIVE); COLOR,URINE YELLOW (YELLOW); KETONES,URINE TRACE (NEGATIVE); LEUKOCYTE ESTERASE ,URINE NEGATIVE (NEGATIVE); NITRITE, URINE NEGATIVE (NEGATIVE); PH,URINE 6.5 (5.0-8.0); PROTEIN,URINE NEGATIVE (NEGATIVE); UGLUCOSE NEGATIVE (NEGATIVE)
--- NOTE | 2018-12-11 00:33 | NUR ---
Patient does not wish to proceed with medical care recommended by (NOAH ). Patient given information related to possible complications, up to and including , which could occur as a result of leaving the hospital at this time. Patient verbalizes understanding of risks involved due to leaving against medical advice. Patient has signed AMA form.
[2018-12-11 00:37] LABS: BACTERIA,URINE Rare /HPF (None Seen); CALCIUM OXALATE CRYSTALS,UR Moderate /HPF (None Seen); RBC,URINE 0-2 /HPF (0-2); WBC,URINE 0-2 /HPF (0-3)
[2018-12-11 00:38] LABS: SQUAMOUS EPITHELIAL CELL,UR Few /HPF (None Seen)
== END 2018-12-11 00:57 | disposition left against medical advice (07) ==
LOC: ER 22:39
DX: S79.822A Other specified injuries of left thigh, initial encounter (principal); Z04.41 Encounter for examination and observation following alleged adult rape; F17.200 Nicotine dependence, unspecified, uncomplicated; G40.909 Epilepsy, unspecified, not intractable, without status epilepticus; F32.9 Major depressive disorder, single episode, unspecified; F25.9 Schizoaffective disorder, unspecified; Z98.890 Other specified postprocedural states; Z90.89 Acquired absence of other organs; Z79.899 Other long term (current) drug therapy; V09.9XXA Pedestrian injured in unspecified transport accident, initial encounter; Y93.89 Activity, other specified; Y92.481 Parking lot as the place of occurrence of the external cause; Y99.8 Other external cause status
CPT/HCPCS: 81001; 87491; 87591; 99283; A4606; Z7610; 81000-TC; 87086-TC; J1885

== ENCOUNTER 2018-12-12 09:52 | Emergency (ER) | payer MEDICAID, OTHER ==
[~2018-12-12] VITALS: Ht 157.5 cm; Wt 59.9 kg
--- NOTE | 2018-12-12 09:52 | NUR ---
PT BIB RA,C/O GENERALIZED BODY PAIN,NO RECENT TRAUMA; PT AAOX4, RESPIRATIONS EVEN AND UNLABORED, NO SOB, NAD NOTED, VSS, PENDING ER PROVIDER EVAL
--- NOTE | 2018-12-12 10:00 | NUR ---
SEEN BY ROBBY BOONE,PROGRAM SCHEDULER AT BEDSIDE FOR HOMELESS RESOURCES
--- NOTE | 2018-12-12 10:03 | NUR ---
JEREMIAS received a call from ED requesting for SW to see the pt. for homelessness. Pt. is a 62 year old female who came to [facility] by ambulance complaining of body pain. JEREMIAS met with pt. bedside. Pt. is alert and oriented x 4. SW tried to asses pt, however, pt. kept yelling stating, " my fingers are cramping up, get the nurse." JEREMIAS informed the RN regarding pt's complaint. JERMEIAS informed RN she will come back to reassess.
--- NOTE | 2018-12-12 11:30 | NUR ---
JEREMIAS met with pt. again bedside to discuss discharge plan and assess pt. Pt. is alert and oriented x 4. Pt's mood is congruent. Pt. states she is not homeless. Her home address is [address] [place] [address]. [place] [id number]. However, pt. states she is going to [place] today. Pt. declined homeless resources stating, " I have somewhere to go." JEREMIAS gave pt. a pair of shoes and TAP card. No other social service needs are required at this time. Homeless Patient Waiver form was signed by the pt. and placed in pt's chart. JEREMIAS updated Dr. Wilkins and SAI Hawthorne regarding pt's discharge plan.
[2018-12-12 11:58] VITALS: BP 129/69
--- NOTE | 2018-12-12 12:00 | NUR ---
Patient discharged to home in stable condition. Written and verbal after care instructions given. Patient verbalizes understanding of instruction.
== END 2018-12-12 12:02 | disposition home or self-care (01) ==
LOC: ER 09:53
DX: M79.10 Myalgia, unspecified site (principal); G40.909 Epilepsy, unspecified, not intractable, without status epilepticus; F31.9 Bipolar disorder, unspecified; F25.9 Schizoaffective disorder, unspecified; F10.10 Alcohol abuse, uncomplicated; F17.200 Nicotine dependence, unspecified, uncomplicated; Y90.9 Presence of alcohol in blood, level not specified; Z60.2 Problems related to living alone; Z98.890 Other specified postprocedural states
CPT/HCPCS: 99283; A4606; Z7610

== ENCOUNTER 2018-12-19 22:51 | Emergency (ER) | payer MEDICARE, MEDICAID ==
[~2018-12-19] VITALS: Ht 162.6 cm; Wt 70.3 kg
--- NOTE | 2018-12-19 23:56 | NUR ---
PT PRESENTED TO THE ER WITH A C/O RT HAND PINKIE PAIN. PT AMBULATED TO ER 15 WITH A STEADY GAIT.
--- NOTE | 2018-12-20 00:06 | NUR ---
XRAY DONE AT THE BEDSIDE.
--- NOTE | 2018-12-20 00:55 | NUR ---
CALLED MARIJA RE: KERRI ALBERTS.
--- NOTE | 2018-12-20 01:00 | NUR ---
PT REC'D JUICE X 2, PUDDING, JELLO, AND CRACKERS. PT TOLERATED PO WELL.
--- NOTE | 2018-12-20 01:20 | NUR ---
PT SIGNED THE HOMELESS WAIVER AND REC'D THE RESOURCE PACKET. PT REFUSED TO GO TO THE LOBBY AND STARTED SCREAMING. SECURITY WAS CALLED AND PT AMBULATED TO THE LOBBY WITH A STEADY GAIT. I CARRIED THE PT'S BELONGINGS TO THE LOBBY AND PT FOLLOWED. PT WAS YELLING "YOU'RE A BITCH".
--- NOTE | 2018-12-20 01:20 | NUR ---
PT REC'D A SPLINT TO THE RT HAND PINKIE FINGER.
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
[2018-12-20 01:30] VITALS: BP 138/75
== END 2018-12-20 01:30 | disposition home or self-care (01) ==
LOC: ER 22:52
DX: S69.81XA Other specified injuries of right wrist, hand and finger(s), initial encounter (principal); G40.909 Epilepsy, unspecified, not intractable, without status epilepticus; F31.9 Bipolar disorder, unspecified; F20.9 Schizophrenia, unspecified; F10.10 Alcohol abuse, uncomplicated; F17.200 Nicotine dependence, unspecified, uncomplicated; Y90.9 Presence of alcohol in blood, level not specified; Z98.890 Other specified postprocedural states; Z60.2 Problems related to living alone; W22.8XXA Striking against or struck by other objects, initial encounter; Y93.01 Activity, walking, marching and hiking; Y92.89 Other specified places as the place of occurrence of the external cause; Y99.8 Other external cause status
CPT/HCPCS: 73140-TC

== ENCOUNTER 2018-12-20 10:30 | Emergency (ER) | payer MEDICARE, MEDICAID ==
[~2018-12-20] VITALS: Ht 170.2 cm; Wt 76.2 kg
--- NOTE | 2018-12-20 10:35 | NUR ---
PT MARY FROM THE [facility], REQUESTING TO BE TRANSFERED TO [facility], STATES SHE IS DEPRESSED DENIES SI/HI. PT IS AAOX4, AGITATED AND BELIGERENT, REFUSED TO GIVE BLOOD SPECIMEN. KEPT RESTED AND COMFORTABLE
[2018-12-20 11:01] LABS: APPEARANCE,URINE Slightly Cloudy (CLEAR); BILIRUBIN,URINE SMALL (NEGATIVE); BLOOD, URINE Negative Ery/uL (NEGATIVE); COLOR,URINE Dark Yellow (YELLOW); KETONES,URINE Trace (NEGATIVE); LEUKOCYTE ESTERASE ,URINE Negative (NEGATIVE); NITRITE, URINE Positive (NEGATIVE); PROTEIN,URINE Negative (NEGATIVE); UGLUCOSE Negative (NEGATIVE); UROBILINOGEN,URINE >=8.0 EU/dL (0.2)
[2018-12-20 11:11] LABS: BACTERIA,URINE Many /HPF (None Seen); SQUAMOUS EPITHELIAL CELL,UR Few /HPF (None Seen); WBC,URINE 0-2 /HPF (0-3)
--- NOTE | 2018-12-20 11:11 | NUR ---
Patient is resting comfortably in bed with eyes closed. Easily aroused. VSS
--- NOTE | 2018-12-20 13:17 | NUR ---
Patient is resting comfortably in bed with eyes closed. Easily aroused. VSS
--- NOTE | 2018-12-20 14:25 | NUR ---
PT PROVIDED WITH FOOD TRAY AND DRY CLOTHING
--- NOTE | 2018-12-20 15:38 | NUR ---
Patient discharged to home in stable condition. Written and verbal after care instructions given. Patient PROVIDED WITH SENIOR LIVING RESOURCES AND TAP CARD. PT BECAME COMBATIVE AND VERBALLY ABUSIVE, YELLING AT STAFF. SHE STOLE DELIVERED FOOD MEANT FOR ANOTHER NURSE, THEN PROCEEDED TO THROW BROCCOLI AT ME. SECURITY NOTIFIED.
--- NOTE | 2018-12-20 15:43 | NUR ---
ROBBY CALLED FOR EVAL FOR HOMELESS DISCHARGE/PLACEMENT PER PAULA CUEVAS SUP
--- NOTE | 2018-12-20 16:23 | NUR ---
SW received a call from pt's RN requesting for SW to follow up with homeless discharge. JEREMIAS informed RN that pt. was seen by brick paver Dmitri George and he will be following up with the pt. regarding homeless discharge plan.
[2018-12-20 17:47] VITALS: BP 122/76
== END 2018-12-20 15:38 | disposition home or self-care (01) ==
LOC: ER 10:33
DX: F31.9 Bipolar disorder, unspecified (principal); G40.909 Epilepsy, unspecified, not intractable, without status epilepticus; F25.9 Schizoaffective disorder, unspecified; F10.10 Alcohol abuse, uncomplicated; F17.200 Nicotine dependence, unspecified, uncomplicated; F15.10 Other stimulant abuse, uncomplicated; Y90.9 Presence of alcohol in blood, level not specified; Z59.0 Homelessness; Z98.890 Other specified postprocedural states; Z60.2 Problems related to living alone
CPT/HCPCS: 80305; 81001; 87077; 87086; 87186; 99284; A4606; 81000-TC

== ENCOUNTER 2018-12-21 15:44 | Emergency (ER) | payer MEDICARE, MEDICAID ==
[~2018-12-21] VITALS: Ht 170.2 cm; Wt 60.8 kg
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
[2018-12-21] MEDS ORDERED: HYDROCODONE/APAP 5/325MG 1 EACH TABLET ONE (16:16)
[2018-12-21] MEDS ORDERED: HYDROCODONE/APAP 5/325MG 1 EACH TABLET PO ONE (16:30)
--- NOTE | 2018-12-21 17:45 | NUR ---
PT PROVIDED FOOD TRAY PER REQUEST, THEN WOULD NOT EAT IT
--- NOTE | 2018-12-21 18:26 | NUR ---
UNABLE TO APPLY FOOT SPLINT. PT WOULD NOT LET STAFF NEAR HER. AWARE
--- NOTE | 2018-12-21 18:35 | NUR ---
Patient discharged to home in stable condition. Written and verbal after care instructions given. Patient REFUSED TO SIGN HOMELESS WAIVER, REFUSED RESOURCES, REFUSED TO SIGN D/C PAPERS. ATTEMPTED TO THROW SANDWICH AT ME. CONTACTED SECURITY TO ESCORT HER OUT.
--- NOTE | 2018-12-21 19:04 | NUR ---
PT ESCORTED OUT WITHOUT INCIDENT
[2018-12-21 19:25] VITALS: BP 118/72
== END 2018-12-21 19:26 | disposition home or self-care (01) ==
LOC: ER 15:49
DX: S39.012A Strain of muscle, fascia and tendon of lower back, initial encounter (principal); S63.591A Other specified sprain of right wrist, initial encounter; S90.32XA Contusion of left foot, initial encounter; M54.42 Lumbago with sciatica, left side; F15.10 Other stimulant abuse, uncomplicated; F10.10 Alcohol abuse, uncomplicated; F17.200 Nicotine dependence, unspecified, uncomplicated; Y90.9 Presence of alcohol in blood, level not specified; Z86.19 Personal history of other infectious and parasitic diseases; Z60.2 Problems related to living alone; W18.09XA Striking against other object with subsequent fall, initial encounter; Y93.89 Activity, other specified; Y92.89 Other specified places as the place of occurrence of the external cause; Y99.8 Other external cause status
CPT/HCPCS: 72110-TC; 73110; 73630-TC

== ENCOUNTER 2019-01-02 22:37 | Emergency (ER) | payer MEDICARE ==
[~2019-01-02] VITALS: Ht 170.2 cm; Wt 61.2 kg
--- NOTE | 2019-01-02 22:48 | NUR ---
PT [address]IB[address] FOR LT HAND, LT WRIST,LT HIP, LT THIGH, S/P GLF X TODAY, ADMITS TO CRYSTAL METH USE TODAY, VS STABLE ON R/A , PLACED ON ER BED 13, AWAITING TO BE EVAL BY ER MD.
[2019-01-02] MEDS ORDERED: HYDROCODONE/APAP 10/325MG 1 EA TABLET ONE (23:02)
[2019-01-02] MEDS: HYDROCODONE/APAP 10/325MG 1 EA TABLET PO ONE (23:11)
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
--- NOTE | 2019-01-03 00:46 | NUR ---
[place] [employer] HERE AT BY BEDSIDE 13 INVETIGATING PT ALLEGATIONS. ACCORDING TO PD, FAMILAIR WITH PT, BEEN CALLED NUMEROUS TIMES FOR THE SAME PT WITH THE SAME ACCOUNT OF ALLEGATION AND SCENE SHE'S RECOUNTING. AND AT THIS TIME PD NOT WILLING TO TAKE PT.
--- NOTE | 2019-01-03 01:11 | NUR ---
Patient discharged to home in stable condition, shelters and contact # and addresses provided pt assigned document accepting to f/u on information provided. Written and verbal after care instructions given. Patient verbalizes understanding of instruction.
[2019-01-03 01:14] VITALS: BP 133/84
== END 2019-01-03 01:15 | disposition home or self-care (01) ==
LOC: ER 22:42
DX: G89.29 Other chronic pain (principal); F15.10 Other stimulant abuse, uncomplicated; I10 Essential (primary) hypertension; F19.10 Other psychoactive substance abuse, uncomplicated; K74.60 Unspecified cirrhosis of liver; F29 Unspecified psychosis not due to a substance or known physiological condition; F10.10 Alcohol abuse, uncomplicated; F17.200 Nicotine dependence, unspecified, uncomplicated; Y90.9 Presence of alcohol in blood, level not specified; Z04.41 Encounter for examination and observation following alleged adult rape; Z59.0 Homelessness; Z76.5 Malingerer [conscious simulation]; Z86.19 Personal history of other infectious and parasitic diseases
CPT/HCPCS: 99283; A4606

== ENCOUNTER 2019-01-04 20:05 | Emergency (ER) | payer MEDICARE, MEDICAID ==
[~2019-01-04] VITALS: Ht 160 cm; Wt 52.6 kg
[2019-01-04 20:26] VITALS: BP 138/82
--- NOTE | 2019-01-04 20:34 | NUR ---
CALLED IN WR, NO ANSWER.
--- NOTE | 2019-01-04 21:04 | NUR ---
PATIENT NOT IN THE WR.
--- NOTE | 2019-01-04 22:14 | NUR ---
PATIENT NOT IN WR.
--- NOTE | 2019-01-04 23:08 | NUR ---
PATIENT STILL NOT IN WR.
== END 2019-01-04 23:10 | disposition left against medical advice (07) ==
LOC: ER 20:10
DX: Z53.21 Procedure and treatment not carried out due to patient leaving prior to being seen by health care provider (principal); I10 Essential (primary) hypertension; Z86.73 Personal history of transient ischemic attack (TIA), and cerebral infarction without residual deficits; Z86.19 Personal history of other infectious and parasitic diseases

== ENCOUNTER 2019-01-06 14:49 | Emergency (ER) | payer MEDICARE, MEDICAID ==
[~2019-01-06] VITALS: Ht 162.6 cm; Wt 69.9 kg
[2019-01-06 14:49] VITALS: BP 132/70
--- NOTE | 2019-01-06 15:21 | NUR ---
PT IS IN ER CH1 AND PT WAS SEEN BY . PT REFUSED TO GO TO A PRIVATE ROOM FOR EVAL FOR HER C/O RECTAL BLEEDING. PT IS AWARE THAT THE DR WILL EXAMINE HER ONCE SHE MOVES TO A PRIVATE AREA.
--- NOTE | 2019-01-06 16:15 | NUR ---
PT IS STILL SITTING IN [facility] AND DOES NOT WANT TO MOVE TO A PRIVATE ROOM TO BE FULLY EVAUATED. IS AWARE.
--- NOTE | 2019-01-06 16:17 | NUR ---
PT EXAMINED BY DR. HARDIN
--- NOTE | 2019-01-06 16:25 | NUR ---
JEREMIAS received a call from ED CRN Kareem requesting for SW to see the pt. for homelessness. Pt. is a 63 year old female who was brought to [facility] by ambulance for rectal bleeding and weakness. Pt. was diagnosed wit Perianal dermatitis. SW met with pt. in the ED. SW is familiar with the pt. from various ED visits. Pt. is alert and oriented x 4. Pt. appears disheveled and unkempt. Pt. is homeless, however states she has a home in [place]. After several inquiries, pt. did inform SW she has been to the snf. SW offered pt. [facility] and pt. accept. JEREMIAS gave pt. the list of [facility] [phone] list and explained to the pt. the time and location of picking tech. Pt. is familiar with the picking tech location. Pt. was also given a TAP card to transport to the picking tech location for the [facility]. Pt. is ambulatory with a steady gait. Pt. is a crystal methamphetamine user and last used this morning. JEREMIAS encouraged pt. to go to a drug rehabilitation program, however, pt. states she is not interested. JEREMIAS encouraged pt. to go to the local clinics if she has any health issues. JEREMIAS gave pt. the following list of resources: Mental Health clinics [facility] Homeless Program [address] [place], [place] [id number] Homeless mentally ill people may be seen at [facility] on a walk-in basis. [facility] [address] [facility], 2nd [place] [address] Main Number: Adult Full Service Partnership (AFSP): Contact [place] [address] [place] [address] HOURS: Sun-Sun 8am--7pm Saturdays 9am--5:30pm [facility] [place], [place] [address] Operation Hours: SUN - FRI 8:00 a.m. - 5:00 p.m. Walk In Hours: MON - SUN 8:00 a.m. - 5:00 p.m. Healthcare Clinics for Homeless patients [facility] [address] [facility], [address]. [place] Hours: M, T, Th, F 8:30AM-4:30PM Walk-ins allowed Provide medical screening and pharmacy [facility] [address] [place] [address] Hours M-F 8AM-3:30PM Walk-ins allowed Provide medical screening and pharmacy [facility] [address] [facility]. [place] [phone] Hours 8AM-4:30PM Walk-ins allowed Provide medical screening and pharmacy Alcohol and Drug Treatment Programs [facility] Substance Abuse Self-helpline ([facility]) Contact number . Call the hotline and the threshing machine operator will screen and link individual to an appropriate program. Must have Medi-pan or be Med-pan eligible. [facility] [address] [facility]. [place] [id number] [facility] [address]. [place] [id number] [facility] Rehabilitation Program (Anglican based) [address] [facility] [place] [address] (Six months program and need to work for 8 hrs per day while in treatment) [facility] (No insurance required) [address] [place] [address] Homeless Patient Waiver Form was signed by the pt. and placed in pt's chart. No other social service needs are requested at this time. JEREMIAS updated pt's RN Allie regarding pt's discharge plan.
--- NOTE | 2019-01-06 16:30 | NUR ---
PT SEEN BY [employer] CONSULTANT SELLING. PT REC'D TAP CARD. PT REC'D HOMELESS MCC INFO AND PT HAS APPROPRIATE CLOTHING AND SHOES.
--- NOTE | 2019-01-06 16:42 | NUR ---
Patient discharged to home in stable condition. Written and verbal after care instructions given. Patient verbalizes understanding of instruction AND RX. PT AMBULATED OUT WITH A STEADY GAIT. PT REC'D AN SEBASTIAN BANDAGE TO THE RT WRIST PER PT'S REQUEST. IS AWARE. VSS.
== END 2019-01-06 16:42 | disposition home or self-care (01) ==
LOC: ER 14:51
DX: L30.8 Other specified dermatitis (principal); I10 Essential (primary) hypertension; F29 Unspecified psychosis not due to a substance or known physiological condition; F19.10 Other psychoactive substance abuse, uncomplicated; F17.200 Nicotine dependence, unspecified, uncomplicated; Z86.19 Personal history of other infectious and parasitic diseases; Z59.0 Homelessness; Z79.899 Other long term (current) drug therapy
CPT/HCPCS: 99283; A4606

== ENCOUNTER 2019-01-07 23:33 | Inpatient (IN) | payer MEDICARE, MEDICAID ==
[~2019-01-07] VITALS: Ht 160 cm; Wt 53.5 kg
--- NOTE | 2019-01-08 00:04 | NUR ---
[address]IBRA [address] C/O +SI -HI PLAN TO JUMP INTRO TRAFFIC. PT AOX3 ADMITS TO USING METH YESTERDAY. RR EVEN AND UNLABORED. NO SOB NOTED. NAD NOTED. NO NVD AT THIS TIME. WAITING FOR MD RICHARDSON. URINE COLLECTED.
[2019-01-08 00:10] LABS: APPEARANCE,URINE Clear (CLEAR); BILIRUBIN,URINE SMALL (NEGATIVE); BLOOD, URINE Negative Ery/uL (NEGATIVE); KETONES,URINE Negative (NEGATIVE); LEUKOCYTE ESTERASE ,URINE Negative (NEGATIVE); NITRITE, URINE Negative (NEGATIVE); PH,URINE 5.5 (5.0-8.0); PROTEIN,URINE Negative (NEGATIVE); UGLUCOSE Negative (NEGATIVE)
[2019-01-08 00:11] LABS: COLOR,URINE YELLOW (YELLOW)
--- NOTE | 2019-01-08 00:12 | NUR ---
LAB AT BEDSIDE FOR BLOOD DRAW.
[2019-01-08 00:16] LABS: EOSINOPHILS % (AUTO) 0.2 % (0.0-6.0); HEMATOCRIT 38 % (33-45); HEMOGLOBIN 12.7 g/dL (11.5-14.8); LYMPHOCYTES % (AUTO) 24.3 % (20.0-44.0); MEAN CORPUSCULAR HGB CONC 33 g/dl (31.0-36.0); MEAN CORPUSCULAR VOLUME 92 fL (82-100); MONOCYTES # (AUTO) 0.4 /CMM (0.1-1.30); MONOCYTES % (AUTO) 9.1 % (2.0-12.0); NEUTROPHILS # (AUTO) 2.8 /CMM (1.8-8.9); NEUTROPHILS % (AUTO) 65.4 % (43.0-81.0); PLATELET COUNT (AUTO) 160 /CMM (150-450); RED BLOOD CELL COUNT(AUTO) 4.17 MIL/uL (4.0-5.2); WHITE BLOOD COUNT (AUTO) 4.3 K/uL (4.3-11.0)
[2019-01-08 00:25] LABS: CALCIUM, SERUM 8.5 mg/dL (8.5-10.1); CARBON DIOXIDE 29 mmol/L (21-32); CHLORIDE 104 mmol/L (98-107); CREATININE 0.7 mg/dL (0.6-1.3); GLUCOSE 78 mg/dL (74-106); POTASSIUM 3.3 mmol/L (3.5-5.1); SODIUM SERUM 136 mmol/L (136-145); UREA NITROGEN, BLOOD 16 mg/dL (7-18)
[2019-01-08 00:37] LABS: BACTERIA,URINE Few /HPF (None Seen); RBC,URINE 0-2 /HPF (0-2); SQUAMOUS EPITHELIAL CELL,UR Few /HPF (None Seen); WBC,URINE 0-2 /HPF (0-3)
[2019-01-08 00:38] LABS: ACETAMINOPHEN 0 ug/ml (10-30); ALANINE AMINOTRANSFERASE 72 U/L (12-78); ALCOHOL, BLOOD < 3 mg/dL (0-0); ALKALINE PHOSPHATASE 285 U/L (46-116); ASPARTATE AMINOTRANSFERASE 76 U/L (15-37); BILIRUBIN,DIRECT 0.2 mg/dL (0.0-0.2); BILIRUBIN,TOTAL 0.4 mg/dL (0.2-1.0); SALICYLATE 1.7 mg/dL (2.8-20.0); TOTAL PROTEIN, SERUM 7.7 g/dL (6.4-8.2)
--- NOTE | 2019-01-08 00:59 | NUR ---
KALPESH TAYLOR ON THE WAY
--- NOTE | 2019-01-08 02:08 | NUR ---
KALPESH TAYLOR AT BEDSIDE FOR EVAL.
--- NOTE | 2019-01-08 02:58 | NUR ---
ATTEMPTED TO PROVIDE PT WITH NEW, CLEAN CLOTHES. PT REFUSED. PT AAOX4. PT STATES "LEAVE ME ALONE TO REST"
--- NOTE | 2019-01-08 03:43 | NUR ---
GAVE REPORT TO JORGE LUIS GIBBS FOR AUDELIA
--- NOTE | 2019-01-08 04:13 | NUR ---
PT TRANSFERRED TO [facility] VIA [facility].
--- NOTE | 2019-01-08 04:15 | NUR ---
GPS-RN NOTES: ADMITTED A 63 YR-OLD FROM [facility]. ADMITTED ON 5150 FOR DTS. PER HOLD, PATIENT REPORTED SI WITH A PLAN TO WALK INTO TRAFFIC. PATIENT STATED , "I DON'T WANT TO LIVE ANYMORE THE VOICES ARE TELLING ME TO GO AND KILL MYSELF THEIR SAYING I SHOULD JUST WALK INTO TRAFFIC". PATIENT PLACED TO BED COMFORTABLY. UPON FACE TO FACE ASSESSMENT, PATIENT IS ALERT, ORIENTED X3, IRRITABLE, ANGRY, UNCOOPERATIVE WITH CARE, UNKEMPT APPEARANCE, DISHEVELED, IN NO APPARENT DISTRESS NOTED. NO C/O OF PAIN OR DISCOMFORT. DENIES SI/HI OR HALLUCINATIONS AT THIS TIME. AMBULATES WITH WALKER. OBTAINED ORDERS FROM DR. NORMAN. PT IS UNDER THE MEDICAL CARE OF DR. NAVAS. SKIN ASSESSMENT DONE AND NOTED WITH TATTOOS ON BOTH LOWER ARMS. PATIENT REFUSED TO SURRENDER HER ROSARY BEADS TO STAFF. CONTRABAND WAS TAKEN FROM HER, AND I DISCUSSED HER RIGHTS A PATIENT. BED LOCKED AND PLACED ON LOWEST POSITION TO MAINTAIN SAFETY. FALL PRECAUTIONS IMPLEMENTED. WILL CONTINUE TO MONITOR Q15 MINS. FOR SAFETY AND BEHAVIOR. Addendum: 01/08/19 at 0656 by YENY OCONNOR RN 0640- CALLED [facility] [employer] ([phone]) PHONE KEPT ON RINGING, UNABLE TO LEFT VOICE MESSAGE. WILL ENDORSE TO DAY SHIFT NURSE TO FOLLOW UP.
[2019-01-08] MEDS ORDERED: MAGNESIUM HYDROXIDE 30 ML UDC PO PRN (04:30)
[2019-01-08] MEDS ORDERED: MAG HYDROX/AL HYDROX/SIMETH 30 ML UDC PO PRN (04:30)
[2019-01-08] MEDS ORDERED: TEMAZEPAM 7.5 MG CAPSULE PO PRN (04:30)
[2019-01-08 04:58] VITALS: BP 146/76
--- NOTE | 2019-01-08 06:35 | NUR ---
GPS-RN NOTES: PAGED DR. NAVAS, AWAITING FOR CALL BACK REGARDING MED RECON.
[2019-01-08 08:00] VITALS: BP 123/71
--- NOTE | 2019-01-08 08:25 | NUR ---
RN-CO: Patient is non redirectable, walking in the hallway naked, yelling and screaming at the staff and peers. Offered Ativan PO but refused. Notified Dr Zamarripa and ordered Zyprexa 5 mg IM STAT. We will continue to monitor and provide safety to patient and environment.
[2019-01-08] MEDS ORDERED: OLANZAPINE 10 MG VIAL IM STA ×2 (08:27→18:38)
[2019-01-08] MEDS ORDERED: POTASSIUM CHLORIDE 20 MEQ TAB.PRT.SR PO SCH (09:30)
--- NOTE | 2019-01-08 13:44 | NUR ---
RN-CO: Patient is awake, non redirectable. Yelling and screaming.
[2019-01-08] MEDS ORDERED: LEVETIRACETAM (250 MG) 250 MG TABLET PO SCH (14:30)
[2019-01-08] MEDS ORDERED: CARBAMAZEPINE 200 MG TABLET PO SCH (14:30)
[2019-01-08] MEDS ORDERED: POTASSIUM CHLORIDE 20 MEQ TAB.PRT.SR PO ONE (15:00)
[2019-01-08] MEDS: LEVETIRACETAM (250 MG) 250 MG TABLET PO SCH (15:20)
[2019-01-08] MEDS: CARBAMAZEPINE 200 MG TABLET PO SCH (15:20)
--- NOTE | 2019-01-08 15:53 | NUR ---
PATIENT REFUSING LAB DRAWS. PATIENT YELLING AND INSULTING STAFF AND OTHER PATIENTS.
--- NOTE | 2019-01-08 15:56 | NUR ---
PATIENT REFUSING LAB DRAWS. PATIENT YELLING AND INSULTING STAFF AND OTHER PATIENTS.
[2019-01-08 16:00] VITALS: BP 117/55
[2019-01-08] MEDS ORDERED: OXCARBAZEPINE 150 MG TABLET PO SCH (17:00)
[2019-01-08] MEDS: OLANZAPINE 5 MG TABLET PO SCH (17:52)
--- NOTE | 2019-01-08 18:35 | NUR ---
RN-CO: PATIENT IS AGITATED , THROWING FOOD TO STAFF, SPITTING, YELLING AND SCREAMING. REFUSED PO ATIVAN. NOTIFIED DR NORMAN AND ORDERED ZYPREXA 5 MG IM STAT,NOTED AND CARRIED OUT. WE WILL CONTINUE TO MONITOR. ENDORSED TO THE NEXT SHIFT.
--- NOTE | 2019-01-08 18:58 | NUR ---
1899 PATIENT THREW ALL HER DINNER. YELLING AT STAFF "YOU ARE SUCH A FAT BITCH" SPITTING AT STAFF. THROWING FOOD At STAFF.
--- NOTE | 2019-01-08 19:02 | NUR ---
1900 [id number] GIVEN ZYPREXA 5MG IM PER DR ORDER.
[2019-01-09] MEDS: CARBAMAZEPINE 200 MG TABLET PO SCH ×2 (09:00→16:48)
[2019-01-09] MEDS: OLANZAPINE 5 MG TABLET PO SCH ×3 (09:00→17:53)
[2019-01-09] MEDS: LEVETIRACETAM (250 MG) 250 MG TABLET PO SCH ×2 (09:00→16:48)
--- NOTE | 2019-01-09 09:17 | NUR ---
GPS RN NOTE: PATIENT REFUSED AM MEDS, ZYPREXA, TEGRETOL, KEPPRA. EXPLAINED THE RISK AND BENEFITS X 3 ATTEMPTS AND PATIENT REFUSED STILL. PATIENT GETS AGITATED. WILL CONITNUE TO MONITOR [id number] FOR SAFETY
--- NOTE | 2019-01-09 13:32 | NUR ---
JEREMIAS faxed a referral to [facility] ([facility]) with attention to ALIX and Shaheed to the fax number: [phone].
--- NOTE | 2019-01-09 15:43 | NUR ---
SW called Ade Armas ([phone]), pts friend, and was unable to make contact. SW will attempt to contact the pt's friend again.
--- NOTE | 2019-01-09 15:45 | NUR ---
Initial Discharge Plan: Pt is currently homeless and so the SW is currently exploring alternative placements. SW will work with the pt and the MD regarding appropriate discharge planning. SW will form safe and proper discharge.
[2019-01-09 16:00] VITALS: BP 122/62
--- NOTE | 2019-01-09 16:49 | NUR ---
GPS RN NOTES: PATIENT REFUSED PM MEDICATION, EXPLAINED THE RISK AND BENEFITS X 3 ATTEMPTS, PATIENT SCREAMED AND AGITATEDLY REFUSED THE MEDICATION. NOTIFIED DR. NORMAN. WILL CONTINUE TO MONITOR [id number] FOR SAFETY
[2019-01-09 20:00] VITALS: BP 122/68
[2019-01-10] MEDS: ACETAMINOPHEN 325 MG TABLET PO PRN (06:05)
[2019-01-10 08:00] VITALS: BP 131/72
[2019-01-10] MEDS: OLANZAPINE 5 MG TABLET PO SCH (08:45)
[2019-01-10] MEDS: CARBAMAZEPINE 200 MG TABLET PO SCH ×2 (08:45→17:00)
[2019-01-10] MEDS: LEVETIRACETAM (250 MG) 250 MG TABLET PO SCH ×2 (08:45→17:00)
--- NOTE | 2019-01-10 10:35 | NUR ---
SW met with the pt and informed her of the plan to be admitted to a long-term facility called [facility]. The pt stated that she did not want to be admitted to a long-term facility and stated that she does not want any assistance in securing placement. Pt stated that she wanted to be discharged and that she would use the money that she has in the bank to get an apartment.
--- NOTE | 2019-01-10 13:39 | NUR ---
JEREMIAS called Ade Armas ([phone]), pts friend, and was unable to make contact.
[2019-01-10 16:00] VITALS: BP 158/59
--- NOTE | 2019-01-10 19:20 | NUR ---
GPS RN NOTE, RECEIVED PATIENT AWAKE AND IN BED NO S/S OR COMPLAINTS OF PAIN AT THIS TIME. PATIENT IS DISPLAYING NO S/S OF APPARENT DISTRESS AT THIS TIME. PATIENT BREATHING IS UNLABORED WITH EQUAL RISE AND FALL OF THE CHEST. PATIENT IS ALERT AND ORIENTED X 2 ON ROOM AIR WITH A SPO2 0F 94%. PATIENT IS MED COMPLIANT, DISORGANIZED, DEPRESSED, COOPERATIVE, CONFUSED AT TIME, ATTENTION SEEKING, AND NEEDS REORIENTATION. PATIENT DENIES SUICIDE AND HOMICIDAL IDEATIONS AT THIS TIME. PATIENT ASSISTED WITH TURNING AND REPOSITIONING Q2HR AND PRN FOR COMFORT AND CIRCULATION. PATIENT HAS NO NEEDS AT THIS TIME. PATIENT EDUCATED ON THE USE OF THE CALL BO. PATIENT BED SIDE RAILS ARE UP X 2 FOR SAFETY, BED IS LOCKED AND LOW. WILL CONTINUE TO MONITOR AND MAINTAIN SAFETY Q15 MIN WITH THE HELP OF STAFF.
[2019-01-10 20:00] VITALS: BP 129/69
[2019-01-10] MEDS: OLANZAPINE 10 MG TABLET PO SCH (20:13)
[2019-01-11 08:00] VITALS: BP 152/88
[2019-01-11] MEDS: LEVETIRACETAM (250 MG) 250 MG TABLET PO SCH ×2 (09:00→16:12)
[2019-01-11] MEDS: CARBAMAZEPINE 200 MG TABLET PO SCH ×2 (09:02→16:12)
[2019-01-11] MEDS: OLANZAPINE 5 MG TABLET PO SCH (09:02)
[2019-01-11] MEDS: LORAZEPAM 0.5 MG TABLET PO PRN ×2 (12:30→22:19)
--- NOTE | 2019-01-11 12:30 | NUR ---
GPS RN NOTE: PT CRYING ATIVAN 0,5 MG PO PRN GIVEN WILL CONTINUE MONITORING FOR SAFETY AND BEHAVIOR Q 15 MIN
[2019-01-11 16:00] VITALS: BP 113/63
[2019-01-11 20:00] VITALS: BP 116/60
[2019-01-11] MEDS: OLANZAPINE 10 MG TABLET PO SCH (20:10)
[2019-01-12 08:00] VITALS: BP 120/71
[2019-01-12] MEDS: LEVETIRACETAM (250 MG) 250 MG TABLET PO SCH ×2 (09:00→16:51)
[2019-01-12] MEDS: ACETAMINOPHEN 325 MG TABLET PO PRN (09:09)
[2019-01-12] MEDS: CARBAMAZEPINE 200 MG TABLET PO SCH ×2 (09:09→16:52)
[2019-01-12] MEDS: OLANZAPINE 5 MG TABLET PO SCH (09:09)
[2019-01-12 16:00] VITALS: BP 102/54
[2019-01-12 20:00] VITALS: BP 120/72
[2019-01-12] MEDS: OLANZAPINE 10 MG TABLET PO SCH (20:16)
[2019-01-12] MEDS: LORAZEPAM 0.5 MG TABLET PO PRN (20:23)
[2019-01-13] MEDS: ACETAMINOPHEN 325 MG TABLET PO PRN (06:28)
[2019-01-13 08:00] VITALS: BP 135/78
[2019-01-13] MEDS: LEVETIRACETAM (250 MG) 250 MG TABLET PO SCH (09:00)
[2019-01-13] MEDS: OLANZAPINE 5 MG TABLET PO SCH (09:45)
[2019-01-13] MEDS: CARBAMAZEPINE 200 MG TABLET PO SCH (09:46)
[2019-01-13] MEDS: LORAZEPAM 0.5 MG TABLET PO PRN (09:46)
--- NOTE | 2019-01-13 10:15 | NUR ---
JEREMIAS conducted a substance abuse intervention with the pt due to her methamphetamine use. Pt agreed to receiving resources that the SW will provide upon discharge.
--- NOTE | 2019-01-13 12:10 | NUR ---
GPS MARINE DIVER NOTE PT DISCHARGE TO SENIOR LIVING VIA TAXI IN STABLE CONDITION. PT IS A/O X3, AFEBRILE. RESPIRATIONS ARE EVEN AND UNLABORED, NOT IN ANY ACUTE DISTRESS NOTED. PT DENIES ANY PAIN, SOB, N/V. NO IV ACCESS. ABDOMEN IS SOFT AND NONDISTENDED, BOWEL SOUNDS ARE PRESENT IN ALL 4 QUADRANTS UPON AUSCULTATION. DENIES ANY BLADDER DISCOMFORT. PT WAS VERY ADAMANT ABOUT LEAVING. EXPLAINED DISCHARGE PAPERWORK TO PT WITH VERBAL AND WRITTEN UNDERSTANDING. NO SKIN ISSUES NOTED. BELONGINGS SENT WITH PT AND SIGNED. PT LEFT VIA TAXI IN STABLE CONDITION, ACCOMPANIED TO VEHICLE WITH 1 STAFF ASSISTANCE.
--- NOTE | 2019-01-13 13:40 | NUR ---
JEREMIAS met with both the pt and her psychiatrist, Dr. Zamarripa, and her discharge plan was discussed. The pt stated that she did not accept placement in a jail facility and stated that she wants to be discharged to a homeless jail. She stated that she will go to the jail and when it is appropriate mean that the pt will have an apartment secured, she will leave and live in her own home.
--- NOTE | 2019-01-13 13:56 | NUR ---
JEREMIAS provided the pt with homeless senior living resources, food [place] resources, access to showers resources, as well as substance abuse and counseling resources. JEREMIAS then had the pt sign the homeless waiver.
--- NOTE | 2019-01-13 14:09 | NUR ---
Discharge Note: Pt was discharged to [facility] located at [address] [place] [address]; ([phone]). Pt was transported via taxi at around 11AM. Pt was taken to the pick-up location and was informed that she is early for the pick-up time because the first slot is at 5:15PM. Pt stated that she is aware but she wanted to be discharged as soon as possible and that she refuses to be remain on the unit. Upon discharge, the pt appeared to be in a dysphoric mood and presented with a distressed and anxious affect. Pt stated that she is did not want to remain on the unit because it makes her feel trapped and she would rather be outdoors. Pt denied both suicidal and homicidal ideation as well as auditory and visual hallucinations. Pt was provided with substance abuse and smoking cessation referrals that are listed below. Pt was referred to [facility] located at [address] [place] [id number]; and a referral was faxed to . Pt was also referred to [facility] located at [address] [place] [address]; . Substance Abuse Referrals: Pt has an intake meeting on 01/14/19 at 9AM. [facility] [address] [place] [address] Tel. [facility] Tele-dermatology HIV Services Telemedicine Services [place] [address] [place] [address] [facility] [address] [place] [address] Smoking cessations: [employer] 800-LUNGUSA [employer] [phone] Pt was referred to a nicotine anonymous meeting that takes place at [facility] located at [address] [place] [address].
[2019-01-13] MEDS ORDERED: OLANZAPINE 10 MG TABLET PO SCH (20:00)
--- NOTE | 2019-01-24 14:13 | NUR ---
15 Day Substance Use Follow Up: SW was unable to conduct the follow up because the pt does not have a phone.
== END 2019-01-13 12:10 | disposition home or self-care (01) | DRG 885 ==
LOC: ER 23:36 → GPS 01-08 03:34
PROVIDERS: ADMIT Psychiatry & Neurology Psychosomatic Medicine; ATTEND Psychiatry & Neurology Psychosomatic Medicine
DX: F25.0 Schizoaffective disorder, bipolar type (principal); F29 Unspecified psychosis not due to a substance or known physiological condition; I10 Essential (primary) hypertension; Z79.899 Other long term (current) drug therapy; K74.60 Unspecified cirrhosis of liver; F19.90 Other psychoactive substance use, unspecified, uncomplicated; Z86.19 Personal history of other infectious and parasitic diseases; Z88.8 Allergy status to other drugs, medicaments and biological substances; Z59.0 Homelessness; F17.200 Nicotine dependence, unspecified, uncomplicated; F32.9 Major depressive disorder, single episode, unspecified; E03.9 Hypothyroidism, unspecified; E87.6 Hypokalemia; Z96.649 Presence of unspecified artificial hip joint; Z90.49 Acquired absence of other specified parts of digestive tract; R56.9 Unspecified convulsions
CPT/HCPCS: 36415; 80048-TC; 80076-TC; 80305; 81000-TC; 85025-TC; 87081-TC; G0480; J3490

== ENCOUNTER 2019-10-16 16:42 | Emergency (ER) | payer MEDICARE, MEDICAID ==
[~2019-10-16] VITALS: Ht 167.6 cm; Wt 68.9 kg
[~2019-10-16 16:42] MED LIST changes: -HALO0.5T2 PO; -QUET400T PO; -QUET400T5
--- NOTE | 2019-10-16 16:50 | NUR ---
PT CAME INTO THE ED C/O L FOOT PAIN, VAGINAL PAIN, RECTAL PAIN SINCE 2018. PT ENDORSES 08/21 PS. PT AAOX4, VSS, BREATHING EVEN AND UNLABROED ON ROOM AIR W/ NAD NOTED. PT CONNECTED TO THE MONITOR AND POX.
--- NOTE | 2019-10-16 17:14 | NUR ---
AWATING FOR MD RICHARDSON
[2019-10-16] MEDS ORDERED: HYDROCODONE/APAP 10/325MG 1 EA TABLET ONE (17:27)
[2019-10-16] MEDS ORDERED: IV NS 0.9% 1,000 ML BAG IV ONE (17:30)
[2019-10-16] MEDS ORDERED: HYDROCODONE/APAP 10/325MG 1 EA TABLET PO ONE (17:30)
[2019-10-16 17:49] LABS: BASOPHILS % (AUTO) 0.5 % (0.0-2.0); EOSINOPHILS % (AUTO) 0.2 % (0.0-6.0); HEMATOCRIT 39 % (33-45); HEMOGLOBIN 13.1 g/dL (11.5-14.8); LYMPHOCYTES % (AUTO) 26.9 % (20.0-44.0); MEAN CORPUSCULAR HGB CONC 34 g/dl (31.0-36.0); MEAN CORPUSCULAR VOLUME 94 fL (82-100); MONOCYTES # (AUTO) 0.5 /CMM (0.1-1.30); MONOCYTES % (AUTO) 13.2 % (2.0-12.0); NEUTROPHILS # (AUTO) 2.2 /CMM (1.8-8.9); NEUTROPHILS % (AUTO) 59.2 % (43.0-81.0); PLATELET COUNT (AUTO) 95 /CMM (150-450); RED BLOOD CELL COUNT(AUTO) 4.17 MIL/uL (4.0-5.2); WHITE BLOOD COUNT (AUTO) 3.7 K/uL (4.3-11.0)
--- NOTE | 2019-10-16 17:52 | NUR ---
XRAY AT BEDSIDE
[2019-10-16 17:54] LABS: CALCIUM, SERUM 8.9 mg/dL (8.5-10.1); CREATININE 0.7 mg/dL (0.6-1.3); POTASSIUM 3.5 mmol/L (3.5-5.1)
[2019-10-16 18:00] LABS: ALBUMIN 3.3 g/dL (3.4-5.0); BILIRUBIN,DIRECT 0.2 mg/dL (0.0-0.2); BILIRUBIN,TOTAL 0.6 mg/dL (0.2-1.0); TOTAL PROTEIN, SERUM 7.6 g/dL (6.4-8.2)
[2019-10-16 18:11] LABS: NEUTROPHILS % (MANUAL) 60 (42-76)
[2019-10-16 18:12] LABS: LYMPHOCYTES % (MANUAL) 25 % (16-48); MONOCYTES % (MANUAL) 15 % (0-11.0)
[2019-10-16] MEDS ORDERED: IV NS 0.9% 250 ML IV ONE (18:12)
[2019-10-16] MEDS ORDERED: CT SWABBABLE VALVE TRANS SET 1 EA INFUS.SET MC ONE (18:12)
[2019-10-16] MEDS ORDERED: IOHEXOL-300 100 ML VIAL IV ONE (18:12)
--- NOTE | 2019-10-16 18:17 | NUR ---
URINE COLLECTED AND SENT TO LAB
--- NOTE | 2019-10-16 18:19 | NUR ---
PT BROUGHT TO CT
[2019-10-16 18:25] LABS: APPEARANCE,URINE Clear (CLEAR); BILIRUBIN,URINE Negative (NEGATIVE); BLOOD, URINE Negative Ery/uL (NEGATIVE); COLOR,URINE Yellow (YELLOW); KETONES,URINE Negative (NEGATIVE); LEUKOCYTE ESTERASE ,URINE Negative (NEGATIVE); NITRITE, URINE Negative (NEGATIVE); PH,URINE 5.5 (5.0-8.0); PROTEIN,URINE Negative (NEGATIVE); UGLUCOSE Negative (NEGATIVE); UROBILINOGEN,URINE 0.2 EU/dL (0.2)
--- NOTE | 2019-10-16 18:30 | NUR ---
PT BROUGHT BACK FROM CT
--- NOTE | 2019-10-16 20:06 | NUR ---
CALLED MARIJA FOR READ.
--- NOTE | 2019-10-16 21:58 | NUR ---
Patient given written and verbal discharge instructions. Patient verbalizes understanding of instructions. Patient is ambulatory with steady gait. Refuses offer of fdc placement. Patient given list of available shelters in surrounding area.
[2019-10-16 22:00] VITALS: BP 117/81
== END 2019-10-16 22:00 | disposition home or self-care (01) ==
LOC: ER 16:44
DX: S80.12XA Contusion of left lower leg, initial encounter (principal); I10 Essential (primary) hypertension; F17.200 Nicotine dependence, unspecified, uncomplicated; Z86.73 Personal history of transient ischemic attack (TIA), and cerebral infarction without residual deficits; Z79.899 Other long term (current) drug therapy; Z59.0 Homelessness; W01.0XXA Fall on same level from slipping, tripping and stumbling without subsequent striking against object, initial encounter; Y93.01 Activity, walking, marching and hiking; Y92.89 Other specified places as the place of occurrence of the external cause; Y99.8 Other external cause status
CPT/HCPCS: 36415; 73503; 73552; 73564; 73590; 73610; 73630; 74177; 80048; 80076; 81001; 83690; 85025; 99284; J7050; Q9967; 73502; 81000-TC

== ENCOUNTER 2019-10-21 04:10 | Emergency (ER) | payer MEDICARE, MEDICAID ==
[~2019-10-21] VITALS: Ht 167.6 cm; Wt 62.6 kg
--- NOTE | 2019-10-21 04:20 | NUR ---
PT BIB RA WITH A C/O ABD PAIN. PT STATED THAT SHE IS HAVING VAGINAL DISCHARGE AND ABD CRAMPING. PT HAS A PRESCRIPTION FOR REMERON AND SEROQUEL FROM [facility] DATED 10/21/19. PT AMBULATED TO THE BATHROOM WITH SOME ASSISTANCE AND GAVE A URINE SAMPLE. PT WAS ASSISTED BACK TO ER BED #3.
--- NOTE | 2019-10-21 04:28 | NUR ---
YESI, MEDIA PLANNER IS AT THE BEDSIDE FOR BLOOD DRAW.
[2019-10-21 04:39] LABS: BASOPHILS % (AUTO) 0.6 % (0.0-2.0); EOSINOPHILS % (AUTO) 0.3 % (0.0-6.0); HEMATOCRIT 43 % (33-45); HEMOGLOBIN 14.2 g/dL (11.5-14.8); LYMPHOCYTES # (AUTO) 0.7 /CMM (0.8-4.8); LYMPHOCYTES % (AUTO) 24.5 % (20.0-44.0); MEAN CORPUSCULAR HGB CONC 33 g/dl (31.0-36.0); MEAN CORPUSCULAR VOLUME 94 fL (82-100); MONOCYTES # (AUTO) 0.4 /CMM (0.1-1.30); MONOCYTES % (AUTO) 14.1 % (2.0-12.0); NEUTROPHILS # (AUTO) 1.7 /CMM (1.8-8.9); NEUTROPHILS % (AUTO) 60.5 % (43.0-81.0); PLATELET COUNT (AUTO) 100 /CMM (150-450); RED BLOOD CELL COUNT(AUTO) 4.52 MIL/uL (4.0-5.2); WHITE BLOOD COUNT (AUTO) 2.8 K/uL (4.3-11.0)
[2019-10-21 04:46] LABS: APPEARANCE,URINE Clear (CLEAR); BILIRUBIN,URINE Negative (NEGATIVE); BLOOD, URINE Negative Ery/uL (NEGATIVE); COLOR,URINE Yellow (YELLOW); KETONES,URINE Negative (NEGATIVE); LEUKOCYTE ESTERASE ,URINE Negative (NEGATIVE); NITRITE, URINE Negative (NEGATIVE); PH,URINE 6.5 (5.0-8.0); PROTEIN,URINE Negative (NEGATIVE); UGLUCOSE Negative (NEGATIVE)
[2019-10-21 04:50] LABS: CALCIUM, SERUM 9.4 mg/dL (8.5-10.1); CREATININE 0.8 mg/dL (0.6-1.3); POTASSIUM 4.3 mmol/L (3.5-5.1)
--- NOTE | 2019-10-21 05:19 | NUR ---
PT APPEARS TO BE SLEEPING SOUNDLY WITH NO S/S OF PAIN OR DISTRESS. WILL CONTINUE TO MONITOR THE PT.
--- NOTE | 2019-10-21 06:00 | NUR ---
PT AMBULATED TO THE BATHROOM WITH A STEADY GAIT.
--- NOTE | 2019-10-21 06:06 | NUR ---
Patient discharged to home in stable condition. Written and verbal after care instructions given. Patient verbalizes understanding of instruction. PT IS AMBULATED OUT TO THE [facility] AND WILL GO TO [facility] ON HER OWN. PT DID NOT WANT TO WAIT FOR TRANSPORT TO [facility]. PT AMBULATED OUT WITH A STEADY GAIT. VSS.
[2019-10-21 06:09] VITALS: BP 119/65
[2019-10-21 06:45] LABS: BAND % (MANUAL) 3 % (0.0-5.0); LYMPHOCYTES % (MANUAL) 23 % (16-48); MONOCYTES % (MANUAL) 11 % (0-11.0); NEUTROPHILS % (MANUAL) 63 (42-76)
== END 2019-10-21 06:10 | disposition home or self-care (01) ==
LOC: ER 04:11
DX: G89.29 Other chronic pain (principal); R10.84 Generalized abdominal pain; R56.9 Unspecified convulsions; I10 Essential (primary) hypertension; F29 Unspecified psychosis not due to a substance or known physiological condition; F19.10 Other psychoactive substance abuse, uncomplicated; F10.10 Alcohol abuse, uncomplicated; F17.200 Nicotine dependence, unspecified, uncomplicated; Y90.9 Presence of alcohol in blood, level not specified; Z86.19 Personal history of other infectious and parasitic diseases; Z86.73 Personal history of transient ischemic attack (TIA), and cerebral infarction without residual deficits; Z98.890 Other specified postprocedural states; Z59.0 Homelessness; Z79.899 Other long term (current) drug therapy
CPT/HCPCS: 36415; 80048-TC; 81000-TC; 83690-TC; 85025-TC

== ENCOUNTER 2019-10-25 18:38 | Inpatient (IN) | payer MEDICARE, OTHER ==
[~2019-10-25] VITALS: Ht 167.6 cm; Wt 63.5 kg
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
[2019-10-26] MEDS ORDERED: MAGNESIUM HYDROXIDE 30 ML UDC PO PRN (01:00)
[2019-10-26] MEDS ORDERED: MAG HYDROX/AL HYDROX/SIMETH 30 ML UDC PO PRN (01:00)
[2019-10-26] MEDS ORDERED: TEMAZEPAM 7.5 MG CAPSULE PO PRN (01:00)
[2019-10-26] MEDS ORDERED: MIRT30TA PO (01:01)
[2019-10-26] MEDS ORDERED: QUET100T PO (01:01)
[2019-10-26] MEDS ORDERED: PHEN100C4 PO (01:06)
[2019-10-26] MEDS ORDERED: BLOOD SUGAR DIAGNOSTIC 1 EACH STRIP IN ONE (01:30)
[2019-10-26 01:50] VITALS: BP 127/64
--- NOTE | 2019-10-26 05:30 | NUR ---
GPS RN NOTE: PATIENT IS CONFUSED, DISORGANIZED AND SOAKED WITH URINE. ATTENDED TO THE NEEDS OF THE PATIENT AND PATIENT BECAME VERBALLY ABUSIVE, LOUD, CRYING, CALLING PEOPLE NAMES AND STATED THAT SHE DOES NOT WANT IT HERE. REDIRECTED THE PATIENT, FIRM LIMIT SETTINGS DONE AND REALITY ORIENTATION PROVIDED. PATIENT CALM DOWN AND STAYS IN ROOM. WILL CONTINUE TO MONITOR Q15 MINS FOR SAFETY
--- NOTE | 2019-10-26 06:55 | NUR ---
GPS RN NOTE ATTEMPTED TO CALL THE RESPONSIBLE REPUBLICAN (AVIS BARAJAS), PHONE NUMBER D/C'D, WILL ENDORSE TO CONTINUE TO FOLLOW UP
[2019-10-26 08:00] VITALS: BP 127/72
[2019-10-26] MEDS: CARBAMAZEPINE 200 MG TABLET PO SCH ×2 (08:30→16:59)
[2019-10-26] MEDS: LEVETIRACETAM (250 MG) 250 MG TABLET PO SCH ×2 (08:30→16:59)
[2019-10-26] MEDS: PHENYTOIN EXTENDED RELEASE 100 MG CAPSULE PO SCH ×2 (08:32→17:00)
[2019-10-26] MEDS: NICOTINE PATCH (21MG) 21 MG PATCH.TD24 TD SCH (08:32)
[2019-10-26 16:00] VITALS: BP 127/80
[2019-10-26 20:12] VITALS: BP 127/77
[2019-10-26] MEDS: GABAPENTIN 300 MG CAPSULE PO SCH (20:19)
[2019-10-26] MEDS: LORAZEPAM 1 MG TABLET PO PRN (22:04)
--- NOTE | 2019-10-26 22:06 | NUR ---
Pt c/o anxiety. Least restrictive measures ineffective. Ativan 1mg/po prn given as ordered. Will continue to monitor.
--- NOTE | 2019-10-26 23:13 | NUR ---
Post 1 hour Ativan effective. Pt asleep in bed easy to arouse. Will continue to monitor.
[2019-10-27] MEDS: LORAZEPAM 1 MG TABLET PO PRN ×3 (06:03→20:21)
--- NOTE | 2019-10-27 06:04 | NUR ---
Pt c/o anxiety. least restrictive measures ineffective. Ativan 1 mg po prn given as ordered. Will continue to monitor.
[2019-10-27 06:27] LABS: BASOPHILS % (AUTO) 0.4 % (0.0-2.0); EOSINOPHILS % (AUTO) 0.2 % (0.0-6.0); HEMATOCRIT 39 % (33-45); HEMOGLOBIN 13.1 g/dL (11.5-14.8); LYMPHOCYTES # (AUTO) 0.9 /CMM (0.8-4.8); LYMPHOCYTES % (AUTO) 30.9 % (20.0-44.0); MEAN CORPUSCULAR HGB CONC 34 g/dl (31.0-36.0); MEAN CORPUSCULAR VOLUME 92 fL (82-100); MONOCYTES # (AUTO) 0.4 /CMM (0.1-1.30); MONOCYTES % (AUTO) 13.5 % (2.0-12.0); NEUTROPHILS # (AUTO) 1.7 /CMM (1.8-8.9); PLATELET COUNT (AUTO) 104 /CMM (150-450); RED BLOOD CELL COUNT(AUTO) 4.17 MIL/uL (4.0-5.2)
[2019-10-27 06:42] LABS: CALCIUM, SERUM 8.3 mg/dL (8.5-10.1); CREATININE 0.6 mg/dL (0.6-1.3); POTASSIUM 4.4 mmol/L (3.5-5.1)
--- NOTE | 2019-10-27 07:00 | NUR ---
Post 1 hr Ativan effective. Pt asleep in bed easy to arouse. Will continue to monitor.
[2019-10-27 08:00] VITALS: BP 141/73
[2019-10-27] MEDS: NICOTINE PATCH (21MG) 21 MG PATCH.TD24 TD SCH ×2 (09:00→09:25)
[2019-10-27] MEDS: PHENYTOIN EXTENDED RELEASE 100 MG CAPSULE PO SCH ×2 (09:25→18:06)
[2019-10-27] MEDS: LEVETIRACETAM (250 MG) 250 MG TABLET PO SCH ×2 (09:25→18:06)
[2019-10-27] MEDS: QUETIAPINE FUMARATE 100 MG TABLET PO SCH ×5 (09:25→22:00)
[2019-10-27] MEDS: CARBAMAZEPINE 200 MG TABLET PO SCH ×2 (09:25→18:06)
[2019-10-27] MEDS: GABAPENTIN 300 MG CAPSULE PO SCH ×3 (09:25→17:00)
--- NOTE | 2019-10-27 10:38 | NUR ---
Substance Abuse Intervention: SW conducted a substance abuse intervention with the pt regarding her methamphetamine abuse.
--- NOTE | 2019-10-27 15:05 | NUR ---
Person to Notify Contact: JEREMIAS contacted the pts ebd special education teacherStanley ([phone]), but the number listed is out of service.
--- NOTE | 2019-10-27 15:37 | NUR ---
Initial Discharge Plan: Pt currently resides at her home located at [address] [place] [address] with her caretakers. Per pt, she would like to return to her home. JEREMIAS will work with the MD and the pt regarding appropriate discharge planning. SW will form a safe and proper discharge.
--- NOTE | 2019-10-27 15:44 | NUR ---
Group Note: Patient presented laying on their bed. SW went to patient's room to invite patient to attend today's support group at 1:00pm regarding holiday sensory activity being held in the activities room. The patient refused. SW encouraged the pt. to attend and just sit in and pt. declined.
[2019-10-27 16:00] VITALS: BP 148/85
[2019-10-27 20:33] VITALS: BP 94/64
[2019-10-27] MEDS: MIRTAZAPINE 15 MG TABLET PO SCH (21:20)
[2019-10-28 08:00] VITALS: BP 138/90
[2019-10-28] MEDS: GABAPENTIN 300 MG CAPSULE PO SCH ×3 (08:31→17:18)
[2019-10-28] MEDS: NICOTINE PATCH (21MG) 21 MG PATCH.TD24 TD SCH (08:31)
[2019-10-28] MEDS: PHENYTOIN EXTENDED RELEASE 100 MG CAPSULE PO SCH ×2 (08:32→17:18)
[2019-10-28] MEDS: QUETIAPINE FUMARATE 100 MG TABLET PO SCH ×3 (09:00→21:31)
[2019-10-28] MEDS: LEVETIRACETAM (250 MG) 250 MG TABLET PO SCH ×2 (09:00→17:00)
[2019-10-28] MEDS: CARBAMAZEPINE 200 MG TABLET PO SCH ×2 (09:00→17:18)
[2019-10-28] MEDS: LORAZEPAM 1 MG TABLET PO PRN (13:25)
[2019-10-28 16:47] VITALS: BP 141/78
[2019-10-28 20:48] VITALS: BP 137/71
[2019-10-28] MEDS: MIRTAZAPINE 15 MG TABLET PO SCH (21:31)
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
[2019-10-29] MEDS ORDERED: oxyCODONE IR immediate release 5 MG PO PRN (05:00)
[2019-10-29 08:00] VITALS: BP 129/80
[2019-10-29] MEDS: NICOTINE PATCH (21MG) 21 MG PATCH.TD24 TD SCH (09:00)
[2019-10-29] MEDS: QUETIAPINE FUMARATE 100 MG TABLET PO SCH ×2 (09:00→12:00)
[2019-10-29] MEDS: LEVETIRACETAM (250 MG) 250 MG TABLET PO SCH (09:09)
[2019-10-29] MEDS: CARBAMAZEPINE 200 MG TABLET PO SCH (09:09)
[2019-10-29] MEDS: PHENYTOIN EXTENDED RELEASE 100 MG CAPSULE PO SCH (09:09)
[2019-10-29] MEDS: GABAPENTIN 300 MG CAPSULE PO SCH ×2 (09:09→13:49)
--- NOTE | 2019-10-29 12:11 | NUR ---
GPS RN PATIENT REFUSING AM AND NOON SEROQUEL STATING THAT IT MAKES HER TIRED AND DOES NOT WANT TO TAKE IT BEFORE DISCHARGE
--- NOTE | 2019-10-29 12:25 | NUR ---
Discharge Note: Pt was discharged to the [facility] located at [address] [facility] [address] [address]; . Pt was provided with a TAP card. Pt was discharged around 2pm. Pt stated that she does not have anyone to be notified. Upon discharge, the pt appeared to be in a euthymic mood and presented with a distressed affect. Pt was provided with a homeless packet that consists of homeless shelters, food waldrop, hot showers, medical and mental health clinics and substance abuse referrals. Pt was referred to [facility] for psychiatric services located at [address] [place] [address]; ; and a fax of records was sent to: . Pt was also referred to [facility] for health services located at [address] [facility] [address], [place] [address]; . Addendum: 10/29/19 at 1607 by FLORENTINO MCDOWELL Pt was discharged around 4pm.
--- NOTE | 2019-10-29 15:10 | NUR ---
SNF Referral: JEREMIAS faxed a referral to [facility] with attn to Shaheed to the fax number: [phone].
--- NOTE | 2019-10-29 15:55 | NUR ---
SNF Contact: Paolo from [facility] ([phone]) called the SW and stated that the pt was approved to their facility but they will not have a bed available until Sunday. SW stated that the pt was attempting to leave AMA and wanted a bed for tonight.
[2019-10-29 16:00] VITALS: BP 147/81
--- NOTE | 2019-10-29 16:19 | NUR ---
GPS RN NOTE: 63 YEAR OLD FEMALE DISCHARGED TO [facility] IN STABLE CONDITION. SW PROVIDED INFORMATION ON SHELTERS. SELECTIVE WITH MEDICATIONS AND WITH TREATMENT PLANS. PATIENT DENIES SI/HI AND INSTRUCTED TO GO TO CLOSEST ER IF DEVELOPING SI/HI. BEHAVIOR IMPROVED. PSYCHIATRIC TREATMENT PLANS MET, MEDICAL TREATMENT PLANS DEFERRED FOR CONTINUAL MONITORING. EDUCATED PATIENT ABOUT AFTER CARE PLAN AND COPY PROVIDED. RETURNED PERSONAL BELONGINGS TO PATIENT. MEDICATIONS RECONCILED WITH DR. KAUFMAN AND DR. MANRIQUE. DR. KAUFMAN WAS PAGED AND NOTIFIED OF PATIENTS CURRENT CONDITION INCLUDING EXPERIENCING FALL THIS AM. DR. KAUFMAN ORDERED TO D/C HOLD AND D/C PATIENT. PATIENT SIGNED DISCHARGE PAPERWORK. REFUSED SKIN ASSESSMENT. PATIENT LEFT UNIT AT 1605. PROVIDED WITH TAP CARD FOR PUBLIC TRANSPORTATION.
== END 2019-10-29 16:05 | disposition home or self-care (01) | DRG 885 ==
LOC: GPS 23:49
PROVIDERS: ADMIT Psychiatry & Neurology Psychiatry; ATTEND Internal Medicine
DX: F25.9 Schizoaffective disorder, unspecified (principal); B19.20 Unspecified viral hepatitis C without hepatic coma; R45.851 Suicidal ideations; F29 Unspecified psychosis not due to a substance or known physiological condition; Z73.6 Limitation of activities due to disability; E03.9 Hypothyroidism, unspecified; M19.90 Unspecified osteoarthritis, unspecified site; G40.909 Epilepsy, unspecified, not intractable, without status epilepticus; Z59.0 Homelessness; F32.9 Major depressive disorder, single episode, unspecified; F41.9 Anxiety disorder, unspecified; F17.200 Nicotine dependence, unspecified, uncomplicated; Z96.649 Presence of unspecified artificial hip joint; Z90.49 Acquired absence of other specified parts of digestive tract; Z98.890 Other specified postprocedural states
CPT/HCPCS: 36415; 70450-TC; 73030-TC; 73502; 73552; 73610-TC; 80048-TC; 80061-TC; 85025-TC; 87081-TC; 97116-TC; 97530-TC

== ENCOUNTER 2019-10-30 00:13 | Emergency (ER) | payer MEDICARE, OTHER ==
[~2019-10-30] VITALS: Ht 168.9 cm; Wt 62.1 kg
[~2019-10-30 00:13] MED LIST changes: +PHEN100C4 PO
[2019-10-30 01:25] LABS: BASOPHILS % (AUTO) 0.6 % (0.0-2.0); EOSINOPHILS % (AUTO) 0.2 % (0.0-6.0); HEMATOCRIT 38 % (33-45); HEMOGLOBIN 12.7 g/dL (11.5-14.8); LYMPHOCYTES # (AUTO) 0.7 /CMM (0.8-4.8); MEAN CORPUSCULAR HGB CONC 34 g/dl (31.0-36.0); MEAN CORPUSCULAR VOLUME 94 fL (82-100); MONOCYTES # (AUTO) 0.4 /CMM (0.1-1.30); MONOCYTES % (AUTO) 13.2 % (2.0-12.0); NEUTROPHILS # (AUTO) 1.9 /CMM (1.8-8.9); PLATELET COUNT (AUTO) 99 /CMM (150-450); RED BLOOD CELL COUNT(AUTO) 4.01 MIL/uL (4.0-5.2); WHITE BLOOD COUNT (AUTO) 3.1 K/uL (4.3-11.0)
[2019-10-30 01:28] LABS: CALCIUM, SERUM 8.8 mg/dL (8.5-10.1); CARBON DIOXIDE 29 mmol/L (21-32); CHLORIDE 104 mmol/L (98-107); CREATININE 0.9 mg/dL (0.6-1.3); GLUCOSE 94 mg/dL (74-106); POTASSIUM 3.9 mmol/L (3.5-5.1); SODIUM SERUM 139 mmol/L (136-145); UREA NITROGEN, BLOOD 26 mg/dL (7-18)
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
[2019-10-30 01:41] LABS: ALANINE AMINOTRANSFERASE 131 U/L (12-78); ALCOHOL, BLOOD < 3 mg/dL (0-0); ALKALINE PHOSPHATASE 224 U/L (46-116); ASPARTATE AMINOTRANSFERASE 117 U/L (15-37); BILIRUBIN,DIRECT 0.1 mg/dL (0.0-0.2); BILIRUBIN,TOTAL 0.2 mg/dL (0.2-1.0); TOTAL PROTEIN, SERUM 7.4 g/dL (6.4-8.2)
[2019-10-30 01:45] LABS: ACETAMINOPHEN 0 ug/ml (10-30); SALICYLATE 2.1 mg/dL (2.8-20.0)
--- NOTE | 2019-10-30 01:50 | NUR ---
PT STILL UNABLE TO PROVIDE URINE. MADE AWARE. CANCELLED THE ORDER
[2019-10-30] MEDS ORDERED: IBUPROFEN 400 MG TABLET ONE (02:03)
[2019-10-30] MEDS ORDERED: IBUPROFEN 400 MG TABLET PO ONE (02:30)
[2019-10-30 02:46] LABS: BASOPHILS % (MANUAL) 1 % (0.0-2.0); LYMPHOCYTES % (MANUAL) 20 % (16-48); MONOCYTES % (MANUAL) 12 % (0-11.0); NEUTROPHILS % (MANUAL) 67 (42-76)
--- NOTE | 2019-10-30 03:36 | NUR ---
Patient discharged to home in stable condition. Written and verbal after care instructions given. Patient verbalizes understanding of instruction. Pt ambulatory with a steady gait. Homeless waiver signed by pt. provided her with new pants.
[2019-10-30 03:39] VITALS: BP 114/65
== END 2019-10-30 03:39 | disposition home or self-care (01) ==
LOC: ER 00:13
DX: F32.9 Major depressive disorder, single episode, unspecified (principal); I10 Essential (primary) hypertension; F17.200 Nicotine dependence, unspecified, uncomplicated; Z90.89 Acquired absence of other organs; Z90.49 Acquired absence of other specified parts of digestive tract; Z98.890 Other specified postprocedural states; Z96.649 Presence of unspecified artificial hip joint; Z86.73 Personal history of transient ischemic attack (TIA), and cerebral infarction without residual deficits; Z91.013 Allergy to seafood; Z88.6 Allergy status to analgesic agent; Z59.0 Homelessness; Z79.899 Other long term (current) drug therapy
CPT/HCPCS: 36415; 80048; 80076; 80307; 80329; 85025; 99284; G0480

== ENCOUNTER 2019-10-30 21:30 | Emergency (ER) | payer MEDICARE, OTHER ==
[~2019-10-30] VITALS: Ht 167.6 cm; Wt 63.5 kg
--- NOTE | 2019-10-30 21:50 | NUR ---
[id number] FROM [place] C/O L LEG PAIN AND CONSTIPATION. PT ALSO STATED SHE HAS VAGINAL PAIN AND RECTAL. UPON ASSESSMENT. ABD BLOATED. PLACED ON MONITOR AND PULSE OX. AWAITING MD FOR EVAL.
[2019-10-30 21:52] VITALS: BP 133/72
--- NOTE | 2019-10-30 22:25 | NUR ---
PT REFUSED TO SIGN HOMELESS WAIVER.
--- NOTE | 2019-10-30 22:26 | NUR ---
Patient discharged to home in stable condition. Written and verbal after care instructions given. Patient verbalizes understanding of instruction. PT ambulatory with a steady gait.
== END 2019-10-30 23:06 | disposition home or self-care (01) ==
LOC: ER 21:33
DX: G89.29 Other chronic pain (principal); M79.662 Pain in left lower leg; I10 Essential (primary) hypertension; F29 Unspecified psychosis not due to a substance or known physiological condition; F17.200 Nicotine dependence, unspecified, uncomplicated; Z86.73 Personal history of transient ischemic attack (TIA), and cerebral infarction without residual deficits; Z90.89 Acquired absence of other organs; Z90.49 Acquired absence of other specified parts of digestive tract; Z98.890 Other specified postprocedural states; Z96.649 Presence of unspecified artificial hip joint; Z88.6 Allergy status to analgesic agent; Z91.013 Allergy to seafood; Z91.018 Allergy to other foods; Z59.0 Homelessness; Z79.899 Other long term (current) drug therapy

== ENCOUNTER 2019-11-27 22:21 | Emergency (ER) | payer MEDICARE, OTHER ==
[~2019-11-27] VITALS: Ht 167.6 cm; Wt 62.6 kg
--- NOTE | 2019-11-28 00:01 | NUR ---
Patient is resting comfortably in bed with eyes closed. Easily aroused. VSS. SITTER AT BEDSIDE
--- NOTE | 2019-11-28 02:00 | NUR ---
Patient is resting comfortably in bed with eyes closed. Easily aroused. VSS. SITTER AT BEDSIDE
--- NOTE | 2019-11-28 03:33 | NUR ---
Patient is resting comfortably in bed with eyes closed. Easily aroused. VSS. SITTER AT BEDSIDE
--- NOTE | 2019-11-28 06:08 | NUR ---
Patient is resting comfortably in bed with eyes closed. Easily aroused. VSS. SITTER AT BEDSIDE
--- NOTE | 2019-11-28 08:00 | NUR ---
JEREMIAS BUSTAMANTE AT BEDSIDE
--- NOTE | 2019-11-28 08:20 | NUR ---
PATIENT SIGNED HOMELESS WAIVER FORM.
--- NOTE | 2019-11-28 08:30 | NUR ---
PROVIDED W BREAKFAST TRAY, TOLERATED WELL.
--- NOTE | 2019-11-28 08:45 | NUR ---
Social service consult requested by Dr. Isaac for homelessness. Upon chart review and MD notes, patient is a 63-year-old female who presents to the emergency Department with complaints of bilateral ankle pain. CRM MARKETING SPECIALIST met with the pt. bedside. Pt is alert and oriented x 4. CRM MARKETING SPECIALIST is familiar with the pt. from previous ED and inpatient admissions. Pt's mood is labile. Pt appears disheveled and unkempt. Pt. has a walker bedside, however pt is ambulatory per ED staff. Pt. denied being homeless stating she is going back to [place]. Pt has psychiatric diagnosis of SchizoAffective disorder and is non-compliant with her medications. Pt. has had several psychiatric hospitalizations. Currently pt. denies suicidal/homicidal ideations and visual/auditory hallucinations at this time. Pt. insisting on going to [place]. Pt has a history of substance abuse. Pt was given provided with homeless resource packet which included the following: [facility] Half-Way program list [phone], [facility], [address] ; [facility] Homeless Resource Directory which includes food stamps, transitional housing, showers and hot meals etc; Mental Health clinics such as [facility] ; [facility] ; Health clinics;[facility] and Alcohol treatment centers such as [facility], ; [facility] Substance Abuse Hotline and [facility] . Pt was provided with a TAP card, breakfast and weather appropriate clothing and shoes. Homeless Patient Waiver form was signed by the pt. and placed in pt's chart.
--- NOTE | 2019-11-28 09:07 | NUR ---
Patient given written and verbal discharge instructions. Patient verbalizes understanding of instructions. Patient wheeled out to the waiting room via wheelchair. Refuses offer of skilled nursing placement. Patient given list of available shelters in surrounding area. Provided w tapcard. Provided w pants and shoes. Name band removed. All belongings returned.
[2019-11-28 09:10] VITALS: BP 139/86
== END 2019-11-28 09:11 | disposition home or self-care (01) ==
LOC: ER 22:22
DX: G89.29 Other chronic pain (principal); M25.571 Pain in right ankle and joints of right foot; M25.572 Pain in left ankle and joints of left foot; R56.9 Unspecified convulsions; I10 Essential (primary) hypertension; F19.10 Other psychoactive substance abuse, uncomplicated; F10.10 Alcohol abuse, uncomplicated; F17.200 Nicotine dependence, unspecified, uncomplicated; Y90.9 Presence of alcohol in blood, level not specified; Z86.73 Personal history of transient ischemic attack (TIA), and cerebral infarction without residual deficits; Z98.890 Other specified postprocedural states; Z90.49 Acquired absence of other specified parts of digestive tract; Z96.649 Presence of unspecified artificial hip joint; Z91.013 Allergy to seafood; Z88.6 Allergy status to analgesic agent; Z91.018 Allergy to other foods; Z59.0 Homelessness; Z79.899 Other long term (current) drug therapy
CPT/HCPCS: 73610-TC

== ENCOUNTER 2019-11-30 00:06 | Emergency (ER) | payer MEDICARE, OTHER ==
[~2019-11-30] VITALS: Ht 162.6 cm; Wt 54.9 kg
[2019-11-30 00:11] VITALS: BP 135/87
== END 2019-11-30 06:26 | disposition home or self-care (01) ==
LOC: ER 00:07
DX: G89.29 Other chronic pain (principal); M79.662 Pain in left lower leg; M79.661 Pain in right lower leg; I10 Essential (primary) hypertension; F28 Other psychotic disorder not due to a substance or known physiological condition; F17.200 Nicotine dependence, unspecified, uncomplicated; Z86.73 Personal history of transient ischemic attack (TIA), and cerebral infarction without residual deficits; Z90.89 Acquired absence of other organs; Z90.49 Acquired absence of other specified parts of digestive tract; Z96.649 Presence of unspecified artificial hip joint; Z98.890 Other specified postprocedural states; Z88.6 Allergy status to analgesic agent; Z91.013 Allergy to seafood; Z91.018 Allergy to other foods; Z59.0 Homelessness; Z79.899 Other long term (current) drug therapy

== ENCOUNTER 2019-12-02 04:33 | Emergency (ER) | payer MEDICARE, OTHER ==
[~2019-12-02] VITALS: Ht 162.6 cm; Wt 63.5 kg
--- NOTE | 2019-12-02 04:49 | NUR ---
PT BIBRA FROM STREETS C/C RECTAL PAIN AND BLEEDING HEMORRHOID FROM SITTING ON WHEELCHAIR. PT ALERT AND AWAKE. VSS. BREATHING EVEN AND UNLABORED ON RA W/ NAD NOTED. CONNECTED TO THE MONITOR AND POX. WILL CONTINUE TO MONITR
[2019-12-02] MEDS ORDERED: HYDROCODONE/APAP 10/325MG 1 EA TABLET ONE (04:58)
[2019-12-02] MEDS ORDERED: HYDROCODONE/APAP 10/325MG 1 EA TABLET PO ONE (05:00)
--- NOTE | 2019-12-02 06:47 | NUR ---
Patient given written and verbal discharge instructions. Patient verbalizes understanding of instructions. Patient is ambulatory with steady gait. Refuses offer of custodial placement. Patient given list of available shelters in surrounding area.
[2019-12-02 06:48] VITALS: BP 119/84
== END 2019-12-02 06:49 | disposition home or self-care (01) ==
LOC: ER 04:35
DX: G89.29 Other chronic pain (principal); F15.10 Other stimulant abuse, uncomplicated; K64.9 Unspecified hemorrhoids; F25.9 Schizoaffective disorder, unspecified; I10 Essential (primary) hypertension; F17.200 Nicotine dependence, unspecified, uncomplicated; Z90.49 Acquired absence of other specified parts of digestive tract; Z90.89 Acquired absence of other organs; Z96.649 Presence of unspecified artificial hip joint; Z98.890 Other specified postprocedural states; Z88.6 Allergy status to analgesic agent; Z91.013 Allergy to seafood; Z91.018 Allergy to other foods; Z59.0 Homelessness; Z79.899 Other long term (current) drug therapy

== ENCOUNTER 2019-12-04 03:11 | Emergency (ER) | payer MEDICARE, MEDICAID ==
[~2019-12-04] VITALS: Ht 162.6 cm; Wt 63.5 kg
[2019-12-04 03:11] VITALS: BP 146/76
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
--- NOTE | 2019-12-04 03:36 | NUR ---
AUTOMOBILE TRAVEL CLUB COUNSELOR AT BEDSIDE FOR XRAYS.
--- NOTE | 2019-12-04 04:06 | NUR ---
PT ASLEEP, NO ACUTE DISTRESS NOTED, RESP EVEN AND UNLABORE.D CALL LIGHT WITHIN REACH.
--- NOTE | 2019-12-04 06:33 | NUR ---
PT OK TO DISCHARGE PER DR BUTTS. Patient given written and verbal discharge instructions. Patient verbalizes understanding of instructions. Patient is ambulatory with steady gait. Refuses offer of fdc placement. Patient given list of available shelters in surrounding area.
== END 2019-12-04 06:34 | disposition home or self-care (01) ==
LOC: ER 03:13
DX: M25.551 Pain in right hip (principal); I10 Essential (primary) hypertension; F29 Unspecified psychosis not due to a substance or known physiological condition; Z90.49 Acquired absence of other specified parts of digestive tract; Z90.89 Acquired absence of other organs; Z98.890 Other specified postprocedural states; Z96.649 Presence of unspecified artificial hip joint; Z88.6 Allergy status to analgesic agent; Z91.013 Allergy to seafood; Z91.018 Allergy to other foods; F17.200 Nicotine dependence, unspecified, uncomplicated; Z59.0 Homelessness; Z79.899 Other long term (current) drug therapy; Z86.73 Personal history of transient ischemic attack (TIA), and cerebral infarction without residual deficits; V09.9XXA Pedestrian injured in unspecified transport accident, initial encounter; Y93.89 Activity, other specified; Y92.89 Other specified places as the place of occurrence of the external cause; Y99.8 Other external cause status
CPT/HCPCS: 73502

== ENCOUNTER 2019-12-09 22:25 | Emergency (ER) | payer MEDICARE, OTHER ==
[~2019-12-09] VITALS: Ht 157.5 cm; Wt 59.0 kg
[2019-12-10 04:03] VITALS: BP 159/88
== END 2019-12-10 04:17 | disposition home or self-care (01) ==
LOC: ER 22:25
DX: B36.0 Pityriasis versicolor (principal); Z76.0 Encounter for issue of repeat prescription; I10 Essential (primary) hypertension; F29 Unspecified psychosis not due to a substance or known physiological condition; F17.200 Nicotine dependence, unspecified, uncomplicated; Z86.73 Personal history of transient ischemic attack (TIA), and cerebral infarction without residual deficits; Z90.89 Acquired absence of other organs; Z90.49 Acquired absence of other specified parts of digestive tract; Z98.890 Other specified postprocedural states; Z96.649 Presence of unspecified artificial hip joint; Z91.013 Allergy to seafood; Z88.6 Allergy status to analgesic agent; Z91.018 Allergy to other foods; Z59.0 Homelessness; Z79.899 Other long term (current) drug therapy

== ENCOUNTER 2019-12-14 13:00 | Emergency (ER) | payer MEDICARE, OTHER ==
[~2019-12-14] VITALS: Ht 167.6 cm; Wt 81.6 kg
[2019-12-14 13:03] VITALS: BP 135/81
--- NOTE | 2019-12-14 14:15 | NUR ---
Patient given written and verbal discharge instructions. Patient verbalizes understanding of instructions. Patient is ambulatory with steady gait. Refuses offer of longterm placement. Patient given list of available shelters in surrounding area.
== END 2019-12-14 14:18 | disposition home or self-care (01) ==
LOC: ER 13:01
DX: R10.9 Unspecified abdominal pain (principal); R56.9 Unspecified convulsions; I10 Essential (primary) hypertension; F10.10 Alcohol abuse, uncomplicated; F17.200 Nicotine dependence, unspecified, uncomplicated; Y90.9 Presence of alcohol in blood, level not specified; Z59.0 Homelessness; Z86.73 Personal history of transient ischemic attack (TIA), and cerebral infarction without residual deficits; Z90.89 Acquired absence of other organs; Z90.49 Acquired absence of other specified parts of digestive tract; Z96.649 Presence of unspecified artificial hip joint; Z98.890 Other specified postprocedural states; Z91.013 Allergy to seafood; Z88.6 Allergy status to analgesic agent; Z88.8 Allergy status to other drugs, medicaments and biological substances; Z91.018 Allergy to other foods; Z79.899 Other long term (current) drug therapy

== ENCOUNTER 2019-12-14 20:03 | Emergency (ER) | payer MEDICARE, OTHER ==
[~2019-12-14] VITALS: Ht 157.5 cm; Wt 59.0 kg
--- NOTE | 2019-12-14 20:10 | NUR ---
PT MARY FROM STREET [facility]. RECENTLY SEEN AND DISCHARGED FROM [facility] ER. PT AAOX4. APPEARS DISSHEVELED. VITAL SIGNS STABLE. RESPIRATIONS EVEN AND UNLABORED. SKIN INTACT. NO ACUTE DISTRESS NOTED AT THIS TIME
--- NOTE | 2019-12-15 01:38 | NUR ---
Patient is resting comfortably in bed with eyes closed. Easily aroused. VSS
--- NOTE | 2019-12-15 04:36 | NUR ---
PT AAOX4 NO ACUTE DISTRESS NOTED, RESP EVEN AND UNLABORED. CALL LIGHT WITHIN REACH. WILL CONTINUE TO MONITOR PT CLOSELY
--- NOTE | 2019-12-15 06:32 | NUR ---
Patient discharged to home in stable condition. Written and verbal after care instructions given. Patient verbalizes understanding of instruction. Pt ambulatory with a steady gait. provided with food and drink. pt also was provided with new clothes and TAP card
[2019-12-15 06:36] VITALS: BP 124/53
== END 2019-12-15 06:36 | disposition home or self-care (01) ==
LOC: ER 20:04
DX: F10.129 Alcohol abuse with intoxication, unspecified (principal); I10 Essential (primary) hypertension; F29 Unspecified psychosis not due to a substance or known physiological condition; F17.200 Nicotine dependence, unspecified, uncomplicated; Z90.89 Acquired absence of other organs; Z90.49 Acquired absence of other specified parts of digestive tract; Z96.649 Presence of unspecified artificial hip joint; Z98.890 Other specified postprocedural states; Z88.6 Allergy status to analgesic agent; Z91.013 Allergy to seafood; Z59.0 Homelessness; Z79.899 Other long term (current) drug therapy; Z86.73 Personal history of transient ischemic attack (TIA), and cerebral infarction without residual deficits; Y90.9 Presence of alcohol in blood, level not specified

== ENCOUNTER 2019-12-15 07:36 | Emergency (ER) | payer MEDICARE, OTHER ==
[~2019-12-15] VITALS: Ht 167.6 cm; Wt 81.6 kg
--- NOTE | 2019-12-15 08:23 | NUR ---
patient refused blood draw and urine sample, made aware.
[2019-12-15 08:38] LABS: BASOPHILS # (AUTO) 0.1 /CMM (0.0-0.2); BASOPHILS % (AUTO) 2.2 % (0.0-2.0); EOSINOPHILS % (AUTO) 1.2 % (0.0-6.0); HEMATOCRIT 39 % (33-45); HEMOGLOBIN 13.1 g/dL (11.5-14.8); LYMPHOCYTES # (AUTO) 0.6 /CMM (0.8-4.8); LYMPHOCYTES % (AUTO) 20.5 % (20.0-44.0); MEAN CORPUSCULAR HGB CONC 33 g/dl (31.0-36.0); MEAN CORPUSCULAR VOLUME 93 fL (82-100); MONOCYTES # (AUTO) 0.2 /CMM (0.1-1.30); NEUTROPHILS # (AUTO) 2.1 /CMM (1.8-8.9); NEUTROPHILS % (AUTO) 68.1 % (43.0-81.0); PLATELET COUNT (AUTO) 99 /CMM (150-450); RED BLOOD CELL COUNT(AUTO) 4.22 MIL/uL (4.0-5.2); WHITE BLOOD COUNT (AUTO) 3.1 K/uL (4.3-11.0)
[2019-12-15 08:45] LABS: CALCIUM, SERUM 8.3 mg/dL (8.5-10.1); CARBON DIOXIDE 30 mmol/L (21-32); CHLORIDE 109 mmol/L (98-107); CREATININE 0.8 mg/dL (0.6-1.3); GLUCOSE 84 mg/dL (74-106); POTASSIUM 3.9 mmol/L (3.5-5.1); SODIUM SERUM 145 mmol/L (136-145); UREA NITROGEN, BLOOD 17 mg/dL (7-18)
--- NOTE | 2019-12-15 08:47 | NUR ---
security at bedside and wand the patient.
--- NOTE | 2019-12-15 08:47 | NUR ---
CASING RUNNING MACHINE TENDER met with the pt in the waiting room with HSIELA Serna. Per SHIELA Serna, pt. has been coming to the ED for the last two days. Pt is alert and oriented x 4. Pt. is requesting voluntary admission to [facility]. CASING RUNNING MACHINE TENDER offered pt voluntary admission to [facility], however pt declined stating, "they let me smoke there." CASING RUNNING MACHINE TENDER contacted Jaylen at [facility] and inquired about bed availability. Per Jaylen, they will hold a bed for the pt. Current bed/room assigned is 214/A. SHIELA Serna and Dr. Preston are aware of voluntary admission to [facility].
[2019-12-15 08:58] LABS: ALANINE AMINOTRANSFERASE 96 U/L (12-78); ALCOHOL, BLOOD < 3 mg/dL (0-0); ALKALINE PHOSPHATASE 215 U/L (46-116); ASPARTATE AMINOTRANSFERASE 103 U/L (15-37); BILIRUBIN,DIRECT 0.2 mg/dL (0.0-0.2); BILIRUBIN,TOTAL 0.7 mg/dL (0.2-1.0); SALICYLATE 1.3 mg/dL (2.8-20.0); TOTAL PROTEIN, SERUM 7.3 g/dL (6.4-8.2)
[2019-12-15 08:59] LABS: ACETAMINOPHEN 0 ug/ml (10-30)
--- NOTE | 2019-12-15 09:43 | NUR ---
Clinical referral packet faxed to [facility] intake dept.
--- NOTE | 2019-12-15 10:01 | NUR ---
ROBBY CALLED. EVERYTHING HAS BEEN FAXED TO MIHIR AT [facility]. WAITING FOR APPROVAL.
--- NOTE | 2019-12-15 10:10 | NUR ---
urine collected and sent to lab
[2019-12-15 10:12] LABS: APPEARANCE,URINE Clear (CLEAR); BILIRUBIN,URINE SMALL (NEGATIVE); BLOOD, URINE Negative Ery/uL (NEGATIVE); KETONES,URINE Negative (NEGATIVE); LEUKOCYTE ESTERASE ,URINE Negative (NEGATIVE); NITRITE, URINE Negative (NEGATIVE); PH,URINE 6.5 (5.0-8.0); PROTEIN,URINE Negative (NEGATIVE); UGLUCOSE Negative (NEGATIVE); UROBILINOGEN,URINE >=8.0 EU/dL (0.2)
[2019-12-15 10:14] LABS: COLOR,URINE DARK YELLOW (YELLOW)
--- NOTE | 2019-12-15 11:05 | NUR ---
MARKING ROOM SUPERVISOR and ED CRKylie Serna met with pt. bedside to inquire her suicidal plan. Pt states, her plan is to run into traffic. MARKING ROOM SUPERVISOR to fax UDS and this note to [facility] intake.
--- NOTE | 2019-12-15 11:23 | NUR ---
PORTABLE SAWYER received a call from Irina at [facility]. Pt is accepted at [facility], accepting Dr. Soliman/Dr Avilez. Report
--- NOTE | 2019-12-15 11:31 | NUR ---
CALLED [facility] FOR TRANSPORT TO [facility]. ETA 40 MINUTES.
--- NOTE | 2019-12-15 12:14 | NUR ---
[facility]
--- NOTE | 2019-12-15 12:16 | NUR ---
patient picked up by private ambulance in no distress, denies any pain or discomfort nor chest pain. going to [facility] for voluntary admission.
[2019-12-15 12:17] VITALS: BP 125/71
== END 2019-12-15 12:17 ==
LOC: ER 07:39
DX: F79 Unspecified intellectual disabilities (principal); F25.9 Schizoaffective disorder, unspecified; I10 Essential (primary) hypertension; F17.200 Nicotine dependence, unspecified, uncomplicated; Z90.89 Acquired absence of other organs; Z90.49 Acquired absence of other specified parts of digestive tract; Z98.890 Other specified postprocedural states; Z96.649 Presence of unspecified artificial hip joint; Z59.0 Homelessness; Z88.6 Allergy status to analgesic agent; Z91.013 Allergy to seafood; Z91.018 Allergy to other foods; Z79.899 Other long term (current) drug therapy; Z86.73 Personal history of transient ischemic attack (TIA), and cerebral infarction without residual deficits
CPT/HCPCS: 36415; 80048; 80076; 80305; 80307; 80329; 81001; 85025; 99285; G0480; 81000-TC

== ENCOUNTER 2019-12-20 14:22 | Emergency (ER) | payer OTHER, MEDICARE ==
[~2019-12-20] VITALS: Ht 167.6 cm; Wt 81.6 kg
[2019-12-20] MEDS ORDERED: KETOROLAC TROMETHAMINE INJ 30 MG/ML VIAL ONE (15:23)
[2019-12-20] MEDS: KETOROLAC TROMETHAMINE INJ 60 MG/2 ML VIAL IM ONE (16:12)
[2019-12-20 16:40] VITALS: BP 135/81
== END 2019-12-20 16:40 | disposition home or self-care (01) ==
LOC: ER 14:29
DX: G40.909 Epilepsy, unspecified, not intractable, without status epilepticus (principal); M79.672 Pain in left foot; M79.671 Pain in right foot; M79.642 Pain in left hand; M79.641 Pain in right hand; F29 Unspecified psychosis not due to a substance or known physiological condition; F15.90 Other stimulant use, unspecified, uncomplicated; F10.10 Alcohol abuse, uncomplicated; F17.200 Nicotine dependence, unspecified, uncomplicated; Y90.9 Presence of alcohol in blood, level not specified; Z59.0 Homelessness; Z86.73 Personal history of transient ischemic attack (TIA), and cerebral infarction without residual deficits; Z90.49 Acquired absence of other specified parts of digestive tract; Z90.89 Acquired absence of other organs; Z98.890 Other specified postprocedural states; Z96.649 Presence of unspecified artificial hip joint; Z91.013 Allergy to seafood; Z88.6 Allergy status to analgesic agent; Z88.8 Allergy status to other drugs, medicaments and biological substances; Z91.018 Allergy to other foods; Z79.899 Other long term (current) drug therapy; W18.09XA Striking against other object with subsequent fall, initial encounter; Y93.89 Activity, other specified; Y92.89 Other specified places as the place of occurrence of the external cause; Y99.8 Other external cause status
CPT/HCPCS: J1885

== ENCOUNTER 2019-12-22 01:54 | Emergency (ER) | payer MEDICARE, OTHER ==
[~2019-12-22] VITALS: Ht 167.6 cm; Wt 81.6 kg
[2019-12-22 02:01] VITALS: BP 140/80
[2019-12-23] MEDS ORDERED: GABA-534 PO (10:07)
[2019-12-23] MEDS ORDERED: QUET100T PO (10:07)
[2019-12-23] MEDS ORDERED: MIRT30TA7 PO (10:07)
[2019-12-23] MEDS ORDERED: PHEN100C12 PO (10:07)
== END 2019-12-22 05:04 | disposition home or self-care (01) ==
LOC: ER 01:54
DX: Z76.0 Encounter for issue of repeat prescription (principal); F10.10 Alcohol abuse, uncomplicated; F17.200 Nicotine dependence, unspecified, uncomplicated; G40.909 Epilepsy, unspecified, not intractable, without status epilepticus; I10 Essential (primary) hypertension; R20.9 Unspecified disturbances of skin sensation; F29 Unspecified psychosis not due to a substance or known physiological condition; F19.10 Other psychoactive substance abuse, uncomplicated; Y90.9 Presence of alcohol in blood, level not specified; Z90.89 Acquired absence of other organs; Z90.49 Acquired absence of other specified parts of digestive tract; Z86.73 Personal history of transient ischemic attack (TIA), and cerebral infarction without residual deficits; Z96.649 Presence of unspecified artificial hip joint; Z91.013 Allergy to seafood; Z88.6 Allergy status to analgesic agent; Z88.8 Allergy status to other drugs, medicaments and biological substances; Z91.018 Allergy to other foods; Z59.0 Homelessness; Z79.899 Other long term (current) drug therapy

== ENCOUNTER 2019-12-22 08:09 | Emergency (ER) | payer MEDICARE, OTHER ==
[~2019-12-22] VITALS: Ht 167.6 cm; Wt 81.6 kg
--- NOTE | 2019-12-22 08:20 | NUR ---
ALEX TAYLOR CALLED FOR EVAL
--- NOTE | 2019-12-22 08:39 | NUR ---
BED ASSIGNED [id number]
--- NOTE | 2019-12-22 08:47 | NUR ---
patient refused blood draw, verbalized "i am not suicidal". made aware
[2019-12-22 09:04] VITALS: BP 128/88
--- NOTE | 2019-12-22 09:06 | NUR ---
Patient given written and verbal discharge instructions. Patient verbalizes understanding of instructions. Patient is ambulatory with steady gait. Refuses offer of halfway placement. Patient given list of available shelters in surrounding area and refused. Food provided.
[2019-12-23] MEDS ORDERED: QUET100T PO (10:07)
[2019-12-23] MEDS ORDERED: MIRT30TA7 PO (10:07)
[2019-12-23] MEDS ORDERED: PHEN100C12 PO (10:07)
[2019-12-23] MEDS ORDERED: GABA-534 PO (10:07)
== END 2019-12-22 09:06 | disposition home or self-care (01) ==
LOC: ER 08:11
DX: F15.10 Other stimulant abuse, uncomplicated (principal); F32.9 Major depressive disorder, single episode, unspecified; I10 Essential (primary) hypertension; F17.200 Nicotine dependence, unspecified, uncomplicated; Z86.73 Personal history of transient ischemic attack (TIA), and cerebral infarction without residual deficits; Z90.89 Acquired absence of other organs; Z90.49 Acquired absence of other specified parts of digestive tract; Z98.890 Other specified postprocedural states; Z96.649 Presence of unspecified artificial hip joint; Z91.013 Allergy to seafood; Z88.6 Allergy status to analgesic agent; Z91.018 Allergy to other foods; Z59.0 Homelessness; Z79.899 Other long term (current) drug therapy

== ENCOUNTER 2019-12-22 10:15 | Inpatient (IN) | payer MEDICARE, OTHER ==
[~2019-12-22] VITALS: Ht 165.1 cm; Wt 61.7 kg
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
--- NOTE | 2019-12-22 10:26 | NUR ---
patient refused lab draw
--- NOTE | 2019-12-22 11:30 | NUR ---
SHY at bedside officer Cristobal
--- NOTE | 2019-12-22 11:42 | NUR ---
Art GEOTECHNICAL DEPARTMENT MANAGER at bedside for eval
--- NOTE | 2019-12-22 12:29 | NUR ---
REPORT GIVEN TO ALIREZA GIBBS
[2019-12-22] MEDS ORDERED: OLANZAPINE 5 MG TABLET PO ONE (12:30)
[2019-12-22] MEDS ORDERED: OLANZAPINE 5 MG TABLET ONE (12:32)
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
--- NOTE | 2019-12-22 14:00 | NUR ---
PATIENT TRANSPORTED TO THE MEDICAL CENTER. IN STABLE CONDITION.
--- NOTE | 2019-12-22 15:49 | NUR ---
GPS/RN-NOTES DR. KAUFMAN MADE AWRE OF THE ADMISSION WITH ORDERS.NOTED AND CARRIED OUT.
[2019-12-22 16:00] VITALS: BP 103/51
[2019-12-22] MEDS ORDERED: MAGNESIUM HYDROXIDE 30 ML UDC PO PRN (16:00)
[2019-12-22] MEDS ORDERED: MAG HYDROX/AL HYDROX/SIMETH 30 ML UDC PO PRN (16:00)
[2019-12-22] MEDS ORDERED: TEMAZEPAM 15 MG CAPSULE PO PRN (16:00)
[2019-12-22] MEDS ORDERED: BLOOD SUGAR DIAGNOSTIC 1 EACH STRIP IN ONE (16:00)
[2019-12-22 16:32] VITALS: BP 125/64
[2019-12-22 20:00] VITALS: BP 112/53
[2019-12-22 20:20] VITALS: BP 112/53
[2019-12-23] MEDS: LORAZEPAM 0.5 MG TABLET PO PRN ×3 (02:34→14:13)
--- NOTE | 2019-12-23 02:34 | NUR ---
GPS RN notes Pt is feeling anxious, restless, verbally abusive towards staffs and not compliant with staffs. Administered ativan 0.5 mg/2 tabs/po as ordered. Safety precautions is maintained. Will continue to monitor.
[2019-12-23 08:00] VITALS: BP 110/62
--- NOTE | 2019-12-23 09:49 | NUR ---
RN NOTE: PT VERBALLY ABUSIVE TO STAFF, DEMANDING, AGITATED, IRRITABLE. REQUESTING ATIVAN. ATIVAN 1MG PO GIVEN TO PT.
[2019-12-23] MEDS ORDERED: PHEN100C12 PO (10:07)
[2019-12-23] MEDS ORDERED: MIRT30TA7 PO (10:07)
[2019-12-23] MEDS ORDERED: GABA-534 PO (10:07)
[2019-12-23] MEDS ORDERED: QUET100T PO (10:07)
--- NOTE | 2019-12-23 12:15 | NUR ---
Substance Abuse Intervention: JEREMIAS conducted a substance abuse intervention with the pt regarding her history of methamphetamine abuse.
--- NOTE | 2019-12-23 13:27 | NUR ---
Person to Notify Contact: SW called the pts significant other, Stanley ([phone]), but the number is disconnected.
[2019-12-23] MEDS: PHENYTOIN EXTENDED RELEASE 100 MG CAPSULE PO SCH ×2 (13:31→21:23)
--- NOTE | 2019-12-23 13:35 | NUR ---
Initial Discharge Plan: Pt currently resides at her home located at [address] [place] [address]; ([phone]). Per pt, she would like to return to her home. SW was unable to verify the pts address. JEREMIAS will work with the pt and the MD regarding appropriate discharge planning. SW will form a safe and proper discharge.
--- NOTE | 2019-12-23 14:13 | NUR ---
RN NOTE: PT AGITATED, IRRITABLE, ANXIOUS, VERBALLY ABUSIVE. MEDICATED WITH ATIVAN 1MG PO
[2019-12-23 16:00] VITALS: BP 105/65
[2019-12-23 19:49] VITALS: BP 103/40
[2019-12-23 20:00] VITALS: BP 103/40
[2019-12-23 21:22] VITALS: BP 114/59
[2019-12-23] MEDS: QUETIAPINE FUMARATE 100 MG TABLET PO SCH (21:23)
[2019-12-23] MEDS: MIRTAZAPINE 15 MG TABLET PO SCH (21:23)
[2019-12-24 08:00] VITALS: BP 114/51
[2019-12-24] MEDS: GABAPENTIN 300 MG CAPSULE PO SCH ×3 (09:14→16:44)
[2019-12-24] MEDS: PHENYTOIN EXTENDED RELEASE 100 MG CAPSULE PO SCH ×2 (09:14→21:33)
[2019-12-24] MEDS: QUETIAPINE FUMARATE 100 MG TABLET PO SCH ×3 (09:14→21:33)
--- NOTE | 2019-12-24 10:36 | NUR ---
Person to Notify Contact: SW called the pts significant other, Stanley ([phone]), but the number is disconnected.
[2019-12-24 16:00] VITALS: BP 130/68
--- NOTE | 2019-12-24 19:30 | NUR ---
[facility] RN NOTES: RECEIVED PATIENT Patient in bed, awake. A/O x3, angry and irritable behavior during nursing assessment. Denies pain, tolerating room air. Safety measure in place. Fall precaution maintained. Continue safety check every hour.
[2019-12-24 20:00] VITALS: BP 113/61
[2019-12-24] MEDS: MIRTAZAPINE 15 MG TABLET PO SCH (21:33)
--- NOTE | 2019-12-24 22:40 | NUR ---
[facility]PS RN NOTES Patient c/o right hip pain, ambulates independently, denies difficulty walking, no weakness on BLE or BUE, per patient Tramadol helps with her pain. Notified paper cone machine tender Elvin,THIRD STEEL POURER reviewed patients medication allergy with THIRD STEEL POURER Elvin, with new order.
[2019-12-24] MEDS: TRAMADOL HCL 50 MG TABLET PO PRN (22:54)
--- NOTE | 2019-12-24 23:54 | NUR ---
[facility] RN NOTES: PAIN REASSESSMENT Patient reports right hip pain improved with Tramadol.
--- NOTE | 2019-12-25 00:25 | NUR ---
[facility]PS RN NOTES: REORDERED TEST Urinalysis, Urine drug screen date ordered 12/22/19 was auto cancelled after 2 days. Test reordered, specimen collected and sent to lab.
[2019-12-25 02:20] LABS: APPEARANCE,URINE CLEAR (CLEAR); BILIRUBIN,URINE NEGATIVE (NEGATIVE); BLOOD, URINE NEGATIVE Ery/uL (NEGATIVE); COLOR,URINE YELLOW (YELLOW); KETONES,URINE NEGATIVE (NEGATIVE); LEUKOCYTE ESTERASE ,URINE NEGATIVE (NEGATIVE); NITRITE, URINE NEGATIVE (NEGATIVE); PROTEIN,URINE NEGATIVE (NEGATIVE); UGLUCOSE NEGATIVE (NEGATIVE)
[2019-12-25 02:27] LABS: BACTERIA,URINE Few /HPF (None Seen); RBC,URINE 0-2 /HPF (0-2); SQUAMOUS EPITHELIAL CELL,UR Rare /HPF (None Seen); WBC,URINE 0-2 /HPF (0-3)
[2019-12-25] MEDS: TRAMADOL HCL 50 MG TABLET PO PRN (05:37)
--- NOTE | 2019-12-25 05:37 | NUR ---
[facility] RN NOTES: PAIN MEDICATION Patient c/o right arm pain not radiate to part of the body, PRN Tramadol given, education on possible side effect of the medication provided, verbalized understanding. Will reassess pain level.
--- NOTE | 2019-12-25 06:43 | NUR ---
[facility] RN NOTES: END OF SHIFT REPORT Patient in bed, stable oxygen saturation on room air. Right arm, right hip pain relieved with PRN Tramadol, denies nausea , no vomiting. Urine drug screen resulted negative. Patient is A/O x3, 8 hours sleep. Hourly rounds, safety measure in place. Will endorse to Oncoming RN.
[2019-12-25 08:00] VITALS: BP 129/68
[2019-12-25] MEDS: GABAPENTIN 300 MG CAPSULE PO SCH (08:55)
[2019-12-25] MEDS: PHENYTOIN EXTENDED RELEASE 100 MG CAPSULE PO SCH (08:56)
[2019-12-25] MEDS: QUETIAPINE FUMARATE 100 MG TABLET PO SCH (08:56)
--- NOTE | 2019-12-25 13:52 | NUR ---
discharged patient in stable condition accompanied at the [facility]. discharge paperwork and educational resource provided. all belongings returned and forms signed. prescriptions also given to the patient. patient denied both suicidal and homicidal ideation as well as auditory and visual hallucinations. provided with homeless packet resources and tap card for transportation. no nameband present on both upper extremity, per patient she took it off.
--- NOTE | 2019-12-25 13:58 | NUR ---
Discharge Note: Pt was discharged to [facility] located at [address] [place] [address]; . Pt was transported via bus with a TAP card at 1pm. There was no one to notify regarding this discharge because the pts significant other, Stanley ([phone]), has a number that is disconnected. Upon discharge, the pt appeared to be in a euthymic mood and presented with a calm affect. Pt appeared to be alert and oriented x4 (time, place, self and situation). Pt denied both suicidal and homicidal ideation as well as auditory and visual hallucinations. Pt was provided with the homeless packet of resources that include shelters, food [place], clinics, and substance abuse referrals. Pt signed the homeless checklist. Pt refused placement in a halfway facility or a penitentiary. Pt is resourceful and is able to navigate the streets. Pt was referred to [facility] located at [address] [place] [address]; and a referral was faxed to . Pt was also referred to [facility] located at [address] [place] [address]; .
== END 2019-12-25 13:50 | disposition home or self-care (01) | DRG 885 ==
LOC: ER 10:15 → GPS 12:35
PROVIDERS: ADMIT Psychiatry & Neurology Psychiatry; ATTEND Internal Medicine
DX: F25.9 Schizoaffective disorder, unspecified (principal); B19.20 Unspecified viral hepatitis C without hepatic coma; R45.851 Suicidal ideations; F41.9 Anxiety disorder, unspecified; E03.9 Hypothyroidism, unspecified; F32.9 Major depressive disorder, single episode, unspecified; I10 Essential (primary) hypertension; G40.909 Epilepsy, unspecified, not intractable, without status epilepticus; F17.200 Nicotine dependence, unspecified, uncomplicated; Z86.73 Personal history of transient ischemic attack (TIA), and cerebral infarction without residual deficits; Z91.19 Patient's noncompliance with other medical treatment and regimen; Z79.899 Other long term (current) drug therapy; Z96.649 Presence of unspecified artificial hip joint; Z98.890 Other specified postprocedural states; Z90.49 Acquired absence of other specified parts of digestive tract; Z88.6 Allergy status to analgesic agent; Z91.013 Allergy to seafood; Z88.8 Allergy status to other drugs, medicaments and biological substances; Z91.018 Allergy to other foods; K74.60 Unspecified cirrhosis of liver; M19.90 Unspecified osteoarthritis, unspecified site; Z59.0 Homelessness; F19.10 Other psychoactive substance abuse, uncomplicated
CPT/HCPCS: 80305; 81000-TC; 87081-TC

== ENCOUNTER 2019-12-25 23:10 | Emergency (ER) | payer MEDICARE, MEDICAID ==
[~2019-12-25 23:10] MED LIST changes: -CARB200T PO; -LEVE250T2 PO; +PHEN100C12 PO; -PHEN100C4 PO
--- NOTE | 2019-12-25 23:35 | NUR ---
CALLED TO TRIAGE, NO ANSWER. NOT IN WAITING ROOM
--- NOTE | 2019-12-26 00:13 | NUR ---
CALLED ONCE AGAIN TO TRIAGE. NO ANSWER. PT IS NOT IN WAITING ROOM
--- NOTE | 2019-12-26 00:30 | NUR ---
CALLED TO ER FOR THE FIANL TIME. STILL NO ANSWER. NOT TO BE FOUND IN THE WAITING ROOM
== END 2019-12-26 00:31 | disposition left against medical advice (07) ==
LOC: ER 23:11
DX: Z53.21 Procedure and treatment not carried out due to patient leaving prior to being seen by health care provider (principal)

== ENCOUNTER 2019-12-29 16:27 | Emergency (ER) | payer MEDICARE, OTHER ==
[~2019-12-29] VITALS: Ht 170.2 cm; Wt 70.8 kg
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
--- NOTE | 2019-12-29 16:52 | NUR ---
urine sent to lab
--- NOTE | 2019-12-29 17:20 | NUR ---
EMT AT BEDSIDE FOR SEBASTIAN WRAO ON L ANKLE PER MD ORDER.
[2019-12-29 18:16] VITALS: BP 120/76
--- NOTE | 2019-12-29 18:16 | NUR ---
Patient discharged to home in stable condition. Written and verbal after care instructions given. Patient verbalizes understanding of instruction.
== END 2019-12-29 18:17 | disposition home or self-care (01) ==
LOC: ER 16:30
DX: S93.492A Sprain of other ligament of left ankle, initial encounter (principal); F32.9 Major depressive disorder, single episode, unspecified; I10 Essential (primary) hypertension; F17.200 Nicotine dependence, unspecified, uncomplicated; Z90.89 Acquired absence of other organs; Z90.49 Acquired absence of other specified parts of digestive tract; Z98.890 Other specified postprocedural states; Z96.649 Presence of unspecified artificial hip joint; Z91.013 Allergy to seafood; Z88.6 Allergy status to analgesic agent; Z59.0 Homelessness; Z79.899 Other long term (current) drug therapy; V09.9XXA Pedestrian injured in unspecified transport accident, initial encounter; Y93.89 Activity, other specified; Y92.481 Parking lot as the place of occurrence of the external cause; Y99.8 Other external cause status

== ENCOUNTER 2020-01-02 22:08 | Emergency (ER) | payer MEDICARE, MEDICAID ==
[~2020-01-02] VITALS: Ht 160 cm; Wt 52.2 kg
[2020-01-02 22:15] VITALS: BP 129/85
--- NOTE | 2020-01-02 22:15 | NUR ---
PATIENT BIBRA FOR BIZARRE BEHAVIOR. SCREAMING AND WAILING FOR NO APPARENT REASON, DENIES PAIN AT THIS TIME. PATIENT WAS JUST DISCHARGED FROM [facility] THIS AM. PATIENT KEPT COMFORTABLE IN BED.
--- NOTE | 2020-01-02 23:55 | NUR ---
PT AMBULATED TO THE NURSING STATION WITH A STEADY GAIT AND REQUESTED TO BE DISCHARGED. NOTIFIED.
--- NOTE | 2020-01-02 23:59 | NUR ---
PT WANTED TO LEAVE. PT SIGNED THE HOMELESS WAIVER AND REC'D A TAP CARD AND A SANDWICH. PT DENIES SI AT THIS TIME. PT REFUSED [facility] PLACEMENT, BUT REC'D [facility] PACKET/LIST. PT AMBULATED OUT WITH A STEADY GAIT. VSS. Patient discharged to home in stable condition. Written and verbal after care instructions given. Patient verbalizes understanding of instruction.
== END 2020-01-03 | disposition home or self-care (01) ==
LOC: ER 22:09
DX: F32.9 Major depressive disorder, single episode, unspecified (principal); I10 Essential (primary) hypertension; Z86.73 Personal history of transient ischemic attack (TIA), and cerebral infarction without residual deficits; Z90.89 Acquired absence of other organs; Z90.49 Acquired absence of other specified parts of digestive tract; Z98.890 Other specified postprocedural states; Z96.649 Presence of unspecified artificial hip joint; Z91.013 Allergy to seafood; Z88.6 Allergy status to analgesic agent; Z91.018 Allergy to other foods; Z59.0 Homelessness; Z79.899 Other long term (current) drug therapy

== ENCOUNTER 2020-03-28 18:50 | Emergency (ER) | payer MEDICARE, OTHER ==
--- NOTE | 2020-03-28 19:15 | NUR ---
CALLED FOR TRIAGE NO ANSWER
--- NOTE | 2020-03-28 19:42 | NUR ---
CALLED FOR TRIAGE, NO REPSONSE
--- NOTE | 2020-03-28 20:02 | NUR ---
CALLED FOR TRIAGE , NO ANSWER
== END 2020-03-28 20:02 | disposition left against medical advice (07) ==
LOC: ER 18:56
DX: Z53.21 Procedure and treatment not carried out due to patient leaving prior to being seen by health care provider (principal)

== ENCOUNTER 2020-03-28 23:50 | Emergency (ER) | payer MEDICARE, OTHER ==
[~2020-03-28] VITALS: Ht 157.5 cm; Wt 54.4 kg
--- NOTE | 2020-03-28 23:56 | NUR ---
MARY 839 FROM [facility] FOR C/O "LOWER BACK PAIN SINCE 1990" PT ALERT AND ORIENTED. AMBULATORY, TRANSFERRED TO BED 13. VSS. WILL CONT TO MONITOR ,
[2020-03-28] MEDS ORDERED: oxyCODONE/APAP (5/325 MG) 1 UDTAB TABLET ONE (23:58)
[2020-03-29] MEDS ORDERED: oxyCODONE/APAP (5/325 MG) 1 UDTAB TABLET PO ONE
[2020-03-29 00:53] LABS: BASOPHILS % (AUTO) 0.5 % (0.0-2.0); HEMOGLOBIN 13.1 g/dL (11.5-14.8); LYMPHOCYTES # (AUTO) 0.9 /CMM (0.8-4.8); MONOCYTES # (AUTO) 0.4 /CMM (0.1-1.30); WHITE BLOOD COUNT (AUTO) 3.1 K/uL (4.3-11.0)
[2020-03-29 00:56] LABS: EOSINOPHILS % (AUTO) 0.3 % (0.0-6.0); HEMATOCRIT 39 % (33-45); LYMPHOCYTES % (AUTO) 30.2 % (20.0-44.0); MEAN CORPUSCULAR HGB CONC 34 g/dl (31.0-36.0); MEAN CORPUSCULAR VOLUME 92 fL (82-100); NEUTROPHILS # (AUTO) 1.8 /CMM (1.8-8.9); PLATELET COUNT (AUTO) 99 /CMM (150-450)
[2020-03-29 01:02] LABS: CALCIUM, SERUM 8.8 mg/dL (8.5-10.1); CARBON DIOXIDE 29 mmol/L (21-32); CHLORIDE 105 mmol/L (98-107); CREATININE 0.9 mg/dL (0.6-1.3); GLUCOSE 88 mg/dL (74-106); POTASSIUM 3.7 mmol/L (3.5-5.1); SODIUM SERUM 139 mmol/L (136-145); UREA NITROGEN, BLOOD 15 mg/dL (7-18)
[2020-03-29 01:07] LABS: ALANINE AMINOTRANSFERASE 44 U/L (12-78); ALBUMIN 3.2 g/dL (3.4-5.0); ALKALINE PHOSPHATASE 292 U/L (46-116); ASPARTATE AMINOTRANSFERASE 46 U/L (15-37); BILIRUBIN,DIRECT 0.1 mg/dL (0.0-0.2); BILIRUBIN,TOTAL 0.3 mg/dL (0.2-1.0); SALICYLATE 3.1 mg/dL (2.8-20.0); TOTAL PROTEIN, SERUM 7.6 g/dL (6.4-8.2)
[2020-03-29 01:08] LABS: ACETAMINOPHEN 0 ug/ml (10-30); ALCOHOL, BLOOD < 3 mg/dL (0-0)
--- NOTE | 2020-03-29 01:13 | NUR ---
PT MEDICALLY CLEARED FOR DISCHARGE. DENIES SI/HI AT THIS TIME. Patient given written and verbal discharge instructions. Patient verbalizes understanding of instructions. Patient is ambulatory with steady gait. Refuses offer of senior living placement. Patient given list of available shelters in surrounding area.Pt ambulatory with a steady gait
[2020-03-29 01:36] LABS: NEUTROPHILS % (MANUAL) 57 (42-76)
[2020-03-29 01:37] LABS: EOSINOPHILS % (MANUAL) 2 % (0-4); LYMPHOCYTES % (MANUAL) 29 % (16-48); MONOCYTES % (MANUAL) 12 % (0-11.0); REACTIVE LYMPHOCYTES 0 % (0-0)
[2020-03-29 01:39] LABS: APPEARANCE,URINE Clear (CLEAR); BILIRUBIN,URINE Negative (NEGATIVE); BLOOD, URINE Negative Ery/uL (NEGATIVE); COLOR,URINE Yellow (YELLOW); KETONES,URINE Negative (NEGATIVE); LEUKOCYTE ESTERASE ,URINE Negative (NEGATIVE); NITRITE, URINE Negative (NEGATIVE); PH,URINE 5.5 (5.0-8.0); PROTEIN,URINE Negative (NEGATIVE); UGLUCOSE Negative (NEGATIVE)
[2020-03-29 02:04] VITALS: BP 130/77
== END 2020-03-29 01:13 | disposition home or self-care (01) ==
LOC: ER 23:51
DX: G89.29 Other chronic pain (principal); F32.9 Major depressive disorder, single episode, unspecified; I10 Essential (primary) hypertension; F17.200 Nicotine dependence, unspecified, uncomplicated; Z90.89 Acquired absence of other organs; Z90.49 Acquired absence of other specified parts of digestive tract; Z98.890 Other specified postprocedural states; Z88.6 Allergy status to analgesic agent; Z91.013 Allergy to seafood; Z91.018 Allergy to other foods; Z79.899 Other long term (current) drug therapy; Z59.0 Homelessness
CPT/HCPCS: 36415; 80048; 80076; 80305; 80307; 80329; 81001; 85025; 99283; G0480; 81000-TC

== ENCOUNTER 2020-03-29 14:10 | Emergency (ER) | payer MEDICARE, OTHER ==
[~2020-03-29] VITALS: Ht 152.4 cm; Wt 65.8 kg
[2020-03-29 14:58] LABS: BASOPHILS % (AUTO) 0.4 % (0.0-2.0); EOSINOPHILS % (AUTO) 0.3 % (0.0-6.0); HEMATOCRIT 42 % (33-45); HEMOGLOBIN 14.1 g/dL (11.5-14.8); LYMPHOCYTES % (AUTO) 31.2 % (20.0-44.0); MEAN CORPUSCULAR HGB CONC 34 g/dl (31.0-36.0); MEAN CORPUSCULAR VOLUME 92 fL (82-100); MONOCYTES # (AUTO) 0.3 /CMM (0.1-1.30); MONOCYTES % (AUTO) 10.1 % (2.0-12.0); NEUTROPHILS # (AUTO) 1.8 /CMM (1.8-8.9); PLATELET COUNT (AUTO) 100 /CMM (150-450); RED BLOOD CELL COUNT(AUTO) 4.56 MIL/uL (4.0-5.2); WHITE BLOOD COUNT (AUTO) 3.1 K/uL (4.3-11.0)
[2020-03-29 15:05] LABS: CALCIUM, SERUM 8.6 mg/dL (8.5-10.1); CARBON DIOXIDE 26 mmol/L (21-32); CHLORIDE 103 mmol/L (98-107); CREATININE 0.9 mg/dL (0.6-1.3); GLUCOSE 115 mg/dL (74-106); POTASSIUM 3.7 mmol/L (3.5-5.1); SODIUM SERUM 138 mmol/L (136-145); UREA NITROGEN, BLOOD 15 mg/dL (7-18)
--- NOTE | 2020-03-29 15:08 | NUR ---
Patient eloped from facility. ER MD notified.
[2020-03-29 15:10] LABS: ALANINE AMINOTRANSFERASE 45 U/L (12-78); ALBUMIN 3.5 g/dL (3.4-5.0); ALKALINE PHOSPHATASE 297 U/L (46-116); ASPARTATE AMINOTRANSFERASE 50 U/L (15-37); BILIRUBIN,DIRECT 0.2 mg/dL (0.0-0.2); BILIRUBIN,TOTAL 0.4 mg/dL (0.2-1.0)
[2020-03-29 15:11] VITALS: BP 134/84
[2020-03-29 15:11] LABS: ALCOHOL, BLOOD < 3 mg/dL (0-0)
== END 2020-03-29 15:12 | disposition left against medical advice (07) ==
LOC: ER 14:15
DX: R44.0 Auditory hallucinations (principal); I10 Essential (primary) hypertension; F17.200 Nicotine dependence, unspecified, uncomplicated; Z90.89 Acquired absence of other organs; Z90.49 Acquired absence of other specified parts of digestive tract; Z98.890 Other specified postprocedural states; Z86.73 Personal history of transient ischemic attack (TIA), and cerebral infarction without residual deficits; Z91.013 Allergy to seafood; Z88.6 Allergy status to analgesic agent; Z91.018 Allergy to other foods; Z59.0 Homelessness; Z79.899 Other long term (current) drug therapy
CPT/HCPCS: 80048-TC; 80076-TC; 85025-TC; G0480

== ENCOUNTER 2020-03-31 11:03 | Emergency (ER) | payer MEDICARE, OTHER ==
[~2020-03-31] VITALS: Ht 160 cm; Wt 52.2 kg
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
--- NOTE | 2020-03-31 11:28 | NUR ---
dr aguilar at bedside for eval.
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
[2020-03-31 12:05] LABS: BASOPHILS % (AUTO) 0.6 % (0.0-2.0); EOSINOPHILS % (AUTO) 0.3 % (0.0-6.0); HEMATOCRIT 38 % (33-45); HEMOGLOBIN 12.8 g/dL (11.5-14.8); LYMPHOCYTES % (AUTO) 29.5 % (20.0-44.0); MEAN CORPUSCULAR HGB CONC 34 g/dl (31.0-36.0); MEAN CORPUSCULAR VOLUME 92 fL (82-100); MONOCYTES # (AUTO) 0.5 /CMM (0.1-1.30); MONOCYTES % (AUTO) 13.4 % (2.0-12.0); NEUTROPHILS % (AUTO) 56.2 % (43.0-81.0); PLATELET COUNT (AUTO) 98 /CMM (150-450); RED BLOOD CELL COUNT(AUTO) 4.13 MIL/uL (4.0-5.2); WHITE BLOOD COUNT (AUTO) 3.5 K/uL (4.3-11.0)
[2020-03-31 12:14] LABS: CALCIUM, SERUM 8.4 mg/dL (8.5-10.1); CARBON DIOXIDE 25 mmol/L (21-32); CHLORIDE 104 mmol/L (98-107); CREATININE 0.7 mg/dL (0.6-1.3); GLUCOSE 101 mg/dL (74-106); POTASSIUM 3.6 mmol/L (3.5-5.1); SODIUM SERUM 136 mmol/L (136-145); UREA NITROGEN, BLOOD 16 mg/dL (7-18)
[2020-03-31] MEDS ORDERED: TRAMADOL HCL 50 MG TABLET ONE (12:20)
--- NOTE | 2020-03-31 12:21 | NUR ---
pt given ultram 50mg po per ermd verbal order. 06/21 pain. to radiology for head and facial ct scan via [facility].
[2020-03-31 12:26] LABS: ACETAMINOPHEN < 10 ug/ml (10-30); ALANINE AMINOTRANSFERASE 42 U/L (12-78); ALBUMIN 3.3 g/dL (3.4-5.0); ALCOHOL, BLOOD < 3 mg/dL (0-0); ALKALINE PHOSPHATASE 216 U/L (46-116); ASPARTATE AMINOTRANSFERASE 46 U/L (15-37); BILIRUBIN,DIRECT 0.2 mg/dL (0.0-0.2); BILIRUBIN,TOTAL 0.7 mg/dL (0.2-1.0); TOTAL PROTEIN, SERUM 7.4 g/dL (6.4-8.2)
[2020-03-31] MEDS ORDERED: TRAMADOL HCL 50 MG TABLET PO ONE (12:30)
[2020-03-31 12:31] LABS: APPEARANCE,URINE Clear (CLEAR); BILIRUBIN,URINE Negative (NEGATIVE); BLOOD, URINE Negative Ery/uL (NEGATIVE); COLOR,URINE Yellow (YELLOW); KETONES,URINE Negative (NEGATIVE); LEUKOCYTE ESTERASE ,URINE Negative (NEGATIVE); NITRITE, URINE Negative (NEGATIVE); PROTEIN,URINE Negative (NEGATIVE); UGLUCOSE Negative (NEGATIVE)
[2020-03-31 12:34] LABS: BACTERIA,URINE Few /HPF (None Seen); MUCUS,URINE Few /LPF (None Seen); RBC,URINE 0-2 /HPF (0-2); SQUAMOUS EPITHELIAL CELL,UR Moderate /HPF (None Seen); WBC,URINE 0-2 /HPF (0-3)
--- NOTE | 2020-03-31 13:32 | NUR ---
pt provided w/ meal tray.
--- NOTE | 2020-03-31 13:40 | NUR ---
Clinicals faxed to [facility].
--- NOTE | 2020-03-31 14:12 | NUR ---
CLAUDIA f/u with Khloe at [facility] intake and was informed SHIELA Winters at [facility] is reviewing the clinicals and will follow-up with ED. CLAUDIA updated ED SAI Winters.
--- NOTE | 2020-03-31 14:47 | NUR ---
ANAND FROM [facility] CALLED. PT ACCEPTED AT [facility]. DR. HERRING IS ACCEPTING DOC. PT GOING UNIT 2 PER MIHIR. NUMBER FOR REPORT [phone] EXT [phone].
--- NOTE | 2020-03-31 14:53 | NUR ---
[facility] ETA 45 MIN
[2020-03-31 14:58] VITALS: BP 132/76
--- NOTE | 2020-03-31 15:04 | NUR ---
report given to davide cross for [facility].
== END 2020-03-31 16:37 ==
LOC: ER 11:03
DX: S00.83XA Contusion of other part of head, initial encounter (principal); R45.851 Suicidal ideations; F15.10 Other stimulant abuse, uncomplicated; I10 Essential (primary) hypertension; F17.200 Nicotine dependence, unspecified, uncomplicated; Z86.73 Personal history of transient ischemic attack (TIA), and cerebral infarction without residual deficits; Z90.89 Acquired absence of other organs; Z90.49 Acquired absence of other specified parts of digestive tract; Z98.890 Other specified postprocedural states; Z91.013 Allergy to seafood; Z88.6 Allergy status to analgesic agent; Z91.018 Allergy to other foods; Z59.0 Homelessness; Z79.899 Other long term (current) drug therapy; Y04.0XXA Assault by unarmed brawl or fight, initial encounter; Y93.89 Activity, other specified; Y92.89 Other specified places as the place of occurrence of the external cause; Y99.8 Other external cause status
CPT/HCPCS: 36415; 70450; 70486; 80048; 80076; 80305; 80307; 80329; 81001; 85025; 99285; G0480; 81000-TC

== ENCOUNTER 2020-04-05 11:47 | Emergency (ER) | payer MEDICARE, OTHER ==
[~2020-04-05] VITALS: Ht 160 cm; Wt 52.2 kg
--- NOTE | 2020-04-05 12:00 | NUR ---
Patient came in to the er c/o abd pain and lower back pain x 3 days. On room air, breathing evenly and unlabored. kept comfortable, will continue to monitor accordingly.
[2020-04-05 12:32] VITALS: BP 101/60
--- NOTE | 2020-04-05 12:32 | NUR ---
Patient given written and verbal discharge instructions. Patient verbalizes understanding of instructions. Patient is ambulatory with steady gait. Refuses offer of jail placement. Patient given list of available shelters in surrounding area. Signed homeless waiver.
== END 2020-04-05 12:32 | disposition home or self-care (01) ==
LOC: ER 11:53
DX: M25.552 Pain in left hip (principal); R10.9 Unspecified abdominal pain; G89.29 Other chronic pain; R56.9 Unspecified convulsions; I10 Essential (primary) hypertension; Z86.73 Personal history of transient ischemic attack (TIA), and cerebral infarction without residual deficits; Z90.89 Acquired absence of other organs; Z90.49 Acquired absence of other specified parts of digestive tract; Z96.649 Presence of unspecified artificial hip joint; Z98.890 Other specified postprocedural states; Z91.013 Allergy to seafood; Z88.6 Allergy status to analgesic agent; Z91.018 Allergy to other foods; Z59.0 Homelessness; Z79.899 Other long term (current) drug therapy
CPT/HCPCS: 73502

== ENCOUNTER 2020-04-06 00:10 | Emergency (ER) | payer MEDICARE, OTHER ==
[~2020-04-06] VITALS: Ht 160 cm; Wt 52.2 kg
--- NOTE | 2020-04-06 00:30 | NUR ---
PT C/O SI WITH PLAN TO RUN INTO TRAFFIC. DENIES HI. ALSO C/O BILATERAL ANKLE PAIN. PT AAOX4, NO ACUTE DISTRESS NOTED. CHANGED INTO GOWN, BELONGINGS PLACED TO LOCKER, SUICIDE PRECAUTIONS IMPLEMENTED. PT CONNECTED TO THE MONITOR AND POX. SITTER AT BEDSIDE FOR SAFETY
[2020-04-06 00:55] LABS: BASOPHILS % (AUTO) 0.5 % (0.0-2.0); HEMATOCRIT 44 % (33-45); HEMOGLOBIN 15.1 g/dL (11.5-14.8); LYMPHOCYTES # (AUTO) 0.8 /CMM (0.8-4.8); MEAN CORPUSCULAR HGB CONC 34 g/dl (31.0-36.0); MEAN CORPUSCULAR VOLUME 92 fL (82-100); MONOCYTES # (AUTO) 0.7 /CMM (0.1-1.30); MONOCYTES % (AUTO) 10.5 % (2.0-12.0); PLATELET COUNT (AUTO) 139 /CMM (150-450); RED BLOOD CELL COUNT(AUTO) 4.81 MIL/uL (4.0-5.2); WHITE BLOOD COUNT (AUTO) 6.5 K/uL (4.3-11.0)
[2020-04-06 00:56] LABS: APPEARANCE,URINE Clear (CLEAR); BILIRUBIN,URINE Negative (NEGATIVE); BLOOD, URINE Negative Ery/uL (NEGATIVE); COLOR,URINE Yellow (YELLOW); KETONES,URINE Negative (NEGATIVE); LEUKOCYTE ESTERASE ,URINE Negative (NEGATIVE); NITRITE, URINE Negative (NEGATIVE); PH,URINE 7.5 (5.0-8.0); PROTEIN,URINE Trace mg/dl (NEGATIVE); UGLUCOSE Negative (NEGATIVE)
[2020-04-06 01:00] LABS: CARBON DIOXIDE 30 mmol/L (21-32); CHLORIDE 102 mmol/L (98-107); CREATININE 0.8 mg/dL (0.6-1.3); GLUCOSE 111 mg/dL (74-106); POTASSIUM 4.1 mmol/L (3.5-5.1); SODIUM SERUM 140 mmol/L (136-145); UREA NITROGEN, BLOOD 26 mg/dL (7-18)
[2020-04-06 01:10] LABS: BACTERIA,URINE Few /HPF (None Seen); RBC,URINE 0-2 /HPF (0-2); SQUAMOUS EPITHELIAL CELL,UR Moderate /HPF (None Seen); YEAST,URINE Few /HPF (None Seen)
[2020-04-06 01:17] LABS: ALANINE AMINOTRANSFERASE 94 U/L (12-78); ALBUMIN 4.1 g/dL (3.4-5.0); ALCOHOL, BLOOD < 3 mg/dL (0-0); ALKALINE PHOSPHATASE 261 U/L (46-116); ASPARTATE AMINOTRANSFERASE 115 U/L (15-37); BILIRUBIN,DIRECT 0.2 mg/dL (0.0-0.2); BILIRUBIN,TOTAL 0.6 mg/dL (0.2-1.0); SALICYLATE 3.6 mg/dL (2.8-20.0); TOTAL PROTEIN, SERUM 9.3 g/dL (6.4-8.2)
[2020-04-06 01:19] LABS: ACETAMINOPHEN 0 ug/ml (10-30)
[2020-04-06] MEDS ORDERED: IBUPROFEN 400 MG TABLET ONE (02:47)
--- NOTE | 2020-04-06 03:36 | NUR ---
PT AWAKE AND RESTING COMFORTABLY IN BED. VSS. NO ACUTE DISTRESS NOTED. SITTER AT BEDSIDE FOR SAFETY
--- NOTE | 2020-04-06 04:28 | NUR ---
PT VERBALIZE FEELING BETTER. DENIES SI/HI AT THIS TIME./ ER MD MADE AWARE.
--- NOTE | 2020-04-06 04:33 | NUR ---
ER MD AT BESIDE TO RE-EVAL PT. PT CLEARED FOR DISCHARGE PER ER MD. PT STILL DENIES SI/HI.
[2020-04-06] MEDS ORDERED: PHENYTOIN EXTENDED RELEASE 100 MG CAPSULE PO ONE ×2 (04:57→05:00)
--- NOTE | 2020-04-06 04:58 | NUR ---
Patient given written and verbal discharge instructions. Patient verbalizes understanding of instructions. Patient is ambulatory with steady gait. Refuses offer of nursing home placement. Meal provided. Refused transport
[2020-04-06 05:19] VITALS: BP 117/65
== END 2020-04-06 05:21 | disposition home or self-care (01) ==
LOC: ER 00:11
DX: G89.29 Other chronic pain (principal); R45.851 Suicidal ideations; I10 Essential (primary) hypertension; F17.200 Nicotine dependence, unspecified, uncomplicated; Z90.89 Acquired absence of other organs; Z90.49 Acquired absence of other specified parts of digestive tract; Z98.890 Other specified postprocedural states; Z86.73 Personal history of transient ischemic attack (TIA), and cerebral infarction without residual deficits; Z91.013 Allergy to seafood; Z88.6 Allergy status to analgesic agent; Z91.018 Allergy to other foods; Z59.0 Homelessness; Z79.899 Other long term (current) drug therapy
CPT/HCPCS: 36415; 80048; 80076; 80305; 80307; 80329; 81001; 85025; 99283; G0480; 81000-TC

== ENCOUNTER 2020-04-24 05:51 | Emergency (ER) | payer MEDICARE, OTHER ==
[~2020-04-24] VITALS: Ht 157.5 cm; Wt 61.2 kg
[2020-04-24 06:05] VITALS: BP 107/64
--- NOTE | 2020-04-24 06:17 | NUR ---
after triage, pt ambulated to er bed then instructed to place personal belongings into safe for safety precuation and to provide UA. pt then became upset and begain to curse at staff, pt stated "i was never fucking suicidal, i just wanted a fucking place to stay, i want fucking my stuff back, and i do not want to be seen by a doctor" risk and benefits explained to pt x3. pt strongly refused. pt also refused to sign AMA paper. again risk and benefits explained x3. dr. vicente aware. pt ambulated to exit with steady gait.
== END 2020-04-24 06:26 | disposition left against medical advice (07) ==
LOC: ER 05:55
DX: M25.532 Pain in left wrist (principal); R56.9 Unspecified convulsions; Z98.890 Other specified postprocedural states; Z90.89 Acquired absence of other organs; Z90.49 Acquired absence of other specified parts of digestive tract; Z86.73 Personal history of transient ischemic attack (TIA), and cerebral infarction without residual deficits; Z53.21 Procedure and treatment not carried out due to patient leaving prior to being seen by health care provider

== ENCOUNTER 2020-05-05 12:59 | Emergency (ER) | payer MEDICARE, OTHER ==
[~2020-05-05] VITALS: Ht 170.2 cm; Wt 68.0 kg
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
--- NOTE | 2020-05-05 13:04 | NUR ---
DR GAMING AT BEDSIDE FOR EVAL
--- NOTE | 2020-05-05 14:37 | NUR ---
PT MEDICALLY CLEARED FOR D/C. WAS PROVIDED W/ MEAL TRAY. PT SIGNED HOMELESS WAIVER. DISCHRGED IN STABLE CONDITION.
[2020-05-05 14:38] VITALS: BP 112/56
== END 2020-05-05 14:38 | disposition home or self-care (01) ==
LOC: ER 13:08
DX: M25.551 Pain in right hip (principal); I10 Essential (primary) hypertension; F17.200 Nicotine dependence, unspecified, uncomplicated; Z86.73 Personal history of transient ischemic attack (TIA), and cerebral infarction without residual deficits; Z90.89 Acquired absence of other organs; Z90.49 Acquired absence of other specified parts of digestive tract; Z98.890 Other specified postprocedural states; Z88.6 Allergy status to analgesic agent; Z91.013 Allergy to seafood; Z91.018 Allergy to other foods; Z59.0 Homelessness; W22.8XXA Striking against or struck by other objects, initial encounter; Y93.89 Activity, other specified; Y92.89 Other specified places as the place of occurrence of the external cause; Y99.8 Other external cause status
CPT/HCPCS: 73502; 73560-TC; 73630-TC

== ENCOUNTER 2020-05-05 17:25 | Emergency (ER) | payer MEDICARE, OTHER ==
[~2020-05-05] VITALS: Ht 170.2 cm; Wt 68.5 kg
--- NOTE | 2020-05-05 17:31 | NUR ---
[id number] FRM [place] C/O R FOOT PAIN. SEEN EARLIER, SAME COMPLAINT, TO ER BED 11, HOOKED TO MONITOR, WARM BLANKET PROVIDED, AWAITING MD RICHARDSON
--- NOTE | 2020-05-05 17:50 | NUR ---
DR HARDIN AT BEDSIDE
[2020-05-05 18:01] VITALS: BP 132/70
--- NOTE | 2020-05-05 18:01 | NUR ---
Patient given written and verbal discharge instructions. Patient verbalizes understanding of instructions. Patient is ambulatory with steady gait. Refuses offer of penitentiary placement. Patient given list of available shelters in surrounding area. Patient in proper clothing upon discharge, all belongings returned, name band removed.
== END 2020-05-05 18:02 | disposition home or self-care (01) ==
LOC: ER 17:32
DX: G89.29 Other chronic pain (principal); M79.604 Pain in right leg; I10 Essential (primary) hypertension; F17.200 Nicotine dependence, unspecified, uncomplicated; Z90.89 Acquired absence of other organs; Z90.49 Acquired absence of other specified parts of digestive tract; Z86.73 Personal history of transient ischemic attack (TIA), and cerebral infarction without residual deficits; Z98.890 Other specified postprocedural states; Z88.6 Allergy status to analgesic agent; Z91.013 Allergy to seafood; Z91.018 Allergy to other foods; Z59.0 Homelessness; Z79.899 Other long term (current) drug therapy; W13.8XXA Fall from, out of or through other building or structure, initial encounter; Y93.89 Activity, other specified; Y92.89 Other specified places as the place of occurrence of the external cause; Y99.8 Other external cause status

== ENCOUNTER 2020-06-09 11:40 | Emergency (ER) | payer MEDICARE, OTHER ==
[~2020-06-09] VITALS: Ht 170.2 cm; Wt 64.0 kg
--- NOTE | 2020-06-09 11:56 | NUR ---
PT AMBULATORY TO ER BED 15 C/O DYSURIA FOR WEEKS. DENIES HEMATURIA. PT ALSO C/O DEPRESSION BUT DENIES SI/HI. PT IS REQUESTING LAB WORKS STATES WAS SENT BY [facility]. STABLE VITALS. NAD NOTED. AWAITING MD RICHARDSON.
--- NOTE | 2020-06-09 12:00 | NUR ---
DR MARR AT BEDSIDE FOR EVAL.
--- NOTE | 2020-06-09 12:05 | NUR ---
URINE SAMPLE COLLECTED AND SENT TO LAB.
[2020-06-09 12:41] LABS: APPEARANCE,URINE Clear (CLEAR); BILIRUBIN,URINE SMALL (NEGATIVE); BLOOD, URINE Negative Ery/uL (NEGATIVE); COLOR,URINE Yellow (YELLOW); KETONES,URINE Negative (NEGATIVE); LEUKOCYTE ESTERASE ,URINE Negative (NEGATIVE); NITRITE, URINE Negative (NEGATIVE); PH,URINE 5.5 (5.0-8.0); PROTEIN,URINE Negative (NEGATIVE); UGLUCOSE Negative (NEGATIVE)
[2020-06-09 12:45] VITALS: BP 129/74
[2020-06-09 12:49] LABS: BACTERIA,URINE Few /HPF (None Seen); SQUAMOUS EPITHELIAL CELL,UR Few /HPF (None Seen)
--- NOTE | 2020-06-09 13:02 | NUR ---
PT NOT AT ROOM. ELOPED.
== END 2020-06-09 13:05 | disposition left against medical advice (07) ==
LOC: ER 11:40
DX: F32.9 Major depressive disorder, single episode, unspecified (principal); I10 Essential (primary) hypertension; Z59.0 Homelessness; Z86.73 Personal history of transient ischemic attack (TIA), and cerebral infarction without residual deficits; Z90.89 Acquired absence of other organs; Z90.79 Acquired absence of other genital organ(s); Z96.649 Presence of unspecified artificial hip joint; Z91.013 Allergy to seafood; Z88.6 Allergy status to analgesic agent; Z91.018 Allergy to other foods; Z79.899 Other long term (current) drug therapy
CPT/HCPCS: 80305; 81000-TC; 87086-TC

== ENCOUNTER 2020-06-12 05:46 | Emergency (ER) | payer MEDICARE, OTHER ==
[~2020-06-12] VITALS: Ht 170.2 cm; Wt 63.5 kg
--- NOTE | 2020-06-12 06:00 | NUR ---
Stanley lund in ED - 06/12/20 at 0641 by JOSELIN CALLED PT IN WR X3. PT STATES SHE WANTS TO SLEEP AT THIS TIME. WILL FOLLOW UP.
--- NOTE | 2020-06-12 07:17 | NUR ---
Patient discharged to home in stable condition per dr. barrios. Written and verbal after care instructions given. Patient verbalizes understanding of instruction. pt ambulatory with steady gait. pt dressed appropriately. pt provided with food.
[2020-06-12 07:22] VITALS: BP 118/71
== END 2020-06-12 07:23 | disposition home or self-care (01) ==
LOC: ER 05:50
DX: Z53.21 Procedure and treatment not carried out due to patient leaving prior to being seen by health care provider (principal); F32.9 Major depressive disorder, single episode, unspecified; I10 Essential (primary) hypertension; Z86.73 Personal history of transient ischemic attack (TIA), and cerebral infarction without residual deficits; Z90.89 Acquired absence of other organs; Z90.49 Acquired absence of other specified parts of digestive tract; Z98.890 Other specified postprocedural states

== ENCOUNTER 2020-06-17 11:22 | Emergency (ER) | payer MEDICARE, OTHER ==
[~2020-06-17] VITALS: Ht 170.2 cm; Wt 64.0 kg
[2020-06-17 11:31] VITALS: BP 124/75
--- NOTE | 2020-06-17 11:35 | NUR ---
BIBS TO ER BED 12. AAOX4. AMBULATORY. NOT IN RESP DISTRESS. C/O PAIN UPON URINATION. URINE COLLECTED. URINE COLLECTED AND SENT TO LAB
[2020-06-17 11:37] LABS: APPEARANCE,URINE Clear (CLEAR); BILIRUBIN,URINE MODERATE (NEGATIVE); BLOOD, URINE Negative Ery/uL (NEGATIVE); COLOR,URINE Yellow (YELLOW); KETONES,URINE Negative (NEGATIVE); LEUKOCYTE ESTERASE ,URINE Negative (NEGATIVE); NITRITE, URINE Negative (NEGATIVE); PH,URINE 5.5 (5.0-8.0); PROTEIN,URINE Trace mg/dl (NEGATIVE); UGLUCOSE Negative (NEGATIVE)
--- NOTE | 2020-06-17 11:40 | NUR ---
PROVIDED WITH FOOD.
[2020-06-17 11:42] LABS: BACTERIA,URINE Few /HPF (None Seen); SQUAMOUS EPITHELIAL CELL,UR Few /HPF (None Seen)
--- NOTE | 2020-06-17 11:42 | NUR ---
UPON HANDING FOOD PT STATES SHE WANTS TO SMOKE AND LEFT. PT JUST WALKED OUT. MADE AWARE.
== END 2020-06-17 11:43 | disposition left against medical advice (07) ==
LOC: ER 11:29
DX: R30.0 Dysuria (principal); I10 Essential (primary) hypertension; Z90.89 Acquired absence of other organs; Z90.79 Acquired absence of other genital organ(s); Z96.649 Presence of unspecified artificial hip joint; Z91.013 Allergy to seafood; Z88.6 Allergy status to analgesic agent; Z91.018 Allergy to other foods; Z88.8 Allergy status to other drugs, medicaments and biological substances; Z79.899 Other long term (current) drug therapy; Z59.0 Homelessness
CPT/HCPCS: 81000-TC

== ENCOUNTER 2020-06-20 16:59 | Emergency (ER) | payer MEDICARE, OTHER ==
[~2020-06-20] VITALS: Ht 167.6 cm; Wt 65.8 kg
--- NOTE | 2020-06-20 17:10 | NUR ---
DR AVILEZ AT BEDSIDE
--- NOTE | 2020-06-20 17:10 | NUR ---
MARY [address], MORE DEPRESSED THAN USUAL. TO ER BED 14, HOOKED TO MONITOR, CHANGED TO HOSP GOWN, WARM BLANKET PROVIDED. SITTER AT BEDSIDE FOR SAFETY. AWAITING MD RICHARDSON
--- NOTE | 2020-06-20 17:16 | NUR ---
REFUSED BLOOD DRAW AND PROVIDING OF URINE. AWARE
--- NOTE | 2020-06-20 18:31 | NUR ---
PATIENT REFUSED XRAYS, DR. AVILEZ AWARED.
--- NOTE | 2020-06-20 20:36 | NUR ---
Patient discharged to home in stable condition. Written and verbal after care instructions given. Patient verbalizes understanding of instruction.
--- NOTE | 2020-06-20 20:36 | NUR ---
Patient denies suicidal ideation nor homicidal ideation. Patient is ambulatory with a steady gait.
[2020-06-20 20:37] VITALS: BP 122/76
--- NOTE | 2020-06-20 20:37 | NUR ---
Patient given written and verbal discharge instructions. Patient verbalizes understanding of instructions. Patient is ambulatory with steady gait. Refuses offer of skilled nursing placement. Patient given list of available shelters in surrounding area.
== END 2020-06-20 20:37 | disposition home or self-care (01) ==
LOC: ER 17:08
DX: M79.672 Pain in left foot (principal); I10 Essential (primary) hypertension; Z86.73 Personal history of transient ischemic attack (TIA), and cerebral infarction without residual deficits; Z90.89 Acquired absence of other organs; Z90.79 Acquired absence of other genital organ(s); Z96.649 Presence of unspecified artificial hip joint; Z91.013 Allergy to seafood; Z88.6 Allergy status to analgesic agent; Z88.8 Allergy status to other drugs, medicaments and biological substances; Z91.018 Allergy to other foods; Z59.0 Homelessness; Z79.899 Other long term (current) drug therapy

== ENCOUNTER 2020-08-04 05:53 | Emergency (ER) | payer MEDICARE, OTHER ==
[~2020-08-04] VITALS: Ht 167.6 cm; Wt 69.9 kg
--- NOTE | 2020-08-04 07:58 | NUR ---
FOOD TRAY PROVIDED. TOLERATED PO WELL.
--- NOTE | 2020-08-04 08:05 | NUR ---
refused to sign DC paper and Homeless waiver form
--- NOTE | 2020-08-04 08:06 | NUR ---
Patient given written and verbal discharge instructions. Patient verbalizes understanding of instructions. Patient is ambulatory with steady gait. Refuses offer of intermediate placement. Patient given list of available shelters in surrounding area. Patient requested to speak to social secretary, assisted patient to waiting room. SW made aware of patients request. Patient in proper clothing upon discharge. All belongings brought with her, name band removed.
--- NOTE | 2020-08-04 08:12 | NUR ---
JEREMIAS ADKINS WENT TO THE WAITING ROOM. PER JEREMIAS, PATIENT NOT THERE.
[2020-08-04 08:21] VITALS: BP 132/81
--- NOTE | 2020-08-04 08:48 | NUR ---
8:15am This SW attempted to meet with the patient, per RECORD CLERK SALESPERSON patient waiting for this SW in the ER Waiting Room. When this SW arrived, patient was not in the waiting room. SW to remain available for all needs regarding this patient.
== END 2020-08-04 08:16 | disposition home or self-care (01) ==
LOC: ER 05:53
DX: S92.532A Displaced fracture of distal phalanx of left lesser toe(s), initial encounter for closed fracture (principal); I10 Essential (primary) hypertension; Z86.73 Personal history of transient ischemic attack (TIA), and cerebral infarction without residual deficits; Z90.89 Acquired absence of other organs; Z90.49 Acquired absence of other specified parts of digestive tract; Z96.649 Presence of unspecified artificial hip joint; Z91.013 Allergy to seafood; Z88.6 Allergy status to analgesic agent; Z88.8 Allergy status to other drugs, medicaments and biological substances; Z91.018 Allergy to other foods; Z59.0 Homelessness; Z79.899 Other long term (current) drug therapy; W18.39XA Other fall on same level, initial encounter; Y93.89 Activity, other specified; Y92.89 Other specified places as the place of occurrence of the external cause; Y99.8 Other external cause status

== ENCOUNTER 2020-08-27 01:44 | Emergency (ER) | payer MEDICARE, MEDICAID ==
[~2020-08-27] VITALS: Ht 170.2 cm; Wt 69.4 kg
--- NOTE | 2020-08-27 01:49 | NUR ---
CALLED FOR TRIAGE, NOT IN WAITING ROOM
[2020-08-27 01:51] VITALS: BP 140/72
--- NOTE | 2020-08-27 02:04 | NUR ---
URINE COLLECTED AND SENT TO LAB
[2020-08-27 02:12] LABS: APPEARANCE,URINE SL CLOUDY (CLEAR); BILIRUBIN,URINE NEGATIVE (NEGATIVE); BLOOD, URINE NEGATIVE Ery/uL (NEGATIVE); COLOR,URINE DARK YELLO (YELLOW); KETONES,URINE NEGATIVE (NEGATIVE); LEUKOCYTE ESTERASE ,URINE NEGATIVE (NEGATIVE); NITRITE, URINE NEGATIVE (NEGATIVE); PH,URINE 5.5 (5.0-8.0); PROTEIN,URINE TRACE mg/dl (NEGATIVE); UGLUCOSE NEGATIVE (NEGATIVE); UROBILINOGEN,URINE 0.2 EU/dL (0.2)
[2020-08-27 02:36] LABS: BACTERIA,URINE Few /HPF (None Seen); HYALINE CASTS, URINE Few /LPF (None Seen); MUCUS,URINE Few /LPF (None Seen); RBC,URINE 0-2 /HPF (0-2); SQUAMOUS EPITHELIAL CELL,UR Moderate /HPF (None Seen); URINE AMORPHOUS URATE Few /HPF (None Seen); WBC,URINE 0-2 /HPF (0-3)
[2020-08-27] MEDS ORDERED: NITROFURANTOIN/NITROFURAN MAC 100 MG CAPSULE ONE (02:42)
--- NOTE | 2020-08-27 02:56 | NUR ---
PT STATED "FUCK YOU, BUT I WOULD NOT WANT TO FUCK YOU." PT LEFT E.D. WITHOUT SIGNING PAPER WORK.
[2020-08-27] MEDS ORDERED: NITROFURANTOIN/NITROFURAN MAC 100 MG CAPSULE PO ONE (03:00)
== END 2020-08-27 03:07 | disposition home or self-care (01) ==
LOC: ER 01:48
DX: N39.0 Urinary tract infection, site not specified (principal); I10 Essential (primary) hypertension; Z86.73 Personal history of transient ischemic attack (TIA), and cerebral infarction without residual deficits; Z90.89 Acquired absence of other organs; Z90.49 Acquired absence of other specified parts of digestive tract; Z96.649 Presence of unspecified artificial hip joint; Z91.013 Allergy to seafood; Z88.6 Allergy status to analgesic agent; Z88.8 Allergy status to other drugs, medicaments and biological substances; Z91.018 Allergy to other foods; Z59.0 Homelessness; Z79.899 Other long term (current) drug therapy
CPT/HCPCS: 81000-TC

== ENCOUNTER 2020-12-29 20:06 | Emergency (ER) | payer MEDICARE, OTHER ==
[~2020-12-29] VITALS: Ht 160 cm; Wt 61.2 kg
[2020-12-29 21:32] VITALS: BP 124/78
--- NOTE | 2020-12-29 21:50 | NUR ---
radiology with pt for cxr
--- NOTE | 2020-12-29 22:34 | NUR ---
Patient discharged to home in stable condition. Written and verbal after care instructions given. Patient verbalizes understanding of instruction. Pt ambulated out of E.D. VSS.
== END 2020-12-29 22:35 | disposition home or self-care (01) ==
LOC: ER 20:06
DX: R07.89 Other chest pain (principal); M79.672 Pain in left foot; M79.641 Pain in right hand; I10 Essential (primary) hypertension; Z86.73 Personal history of transient ischemic attack (TIA), and cerebral infarction without residual deficits; Z90.89 Acquired absence of other organs; Z90.49 Acquired absence of other specified parts of digestive tract; Z98.890 Other specified postprocedural states; Z91.013 Allergy to seafood; Z88.6 Allergy status to analgesic agent; Z59.0 Homelessness; Z79.899 Other long term (current) drug therapy; Y04.0XXA Assault by unarmed brawl or fight, initial encounter; Y93.89 Activity, other specified; Y92.89 Other specified places as the place of occurrence of the external cause; Y99.8 Other external cause status
CPT/HCPCS: 71045-TC; 73130-TC; 73630-TC

== ENCOUNTER 2021-01-06 09:57 | Emergency (ER) | payer MEDICARE, OTHER ==
[~2021-01-06] VITALS: Ht 160 cm; Wt 61.2 kg
[2021-01-06 10:00] VITALS: BP 135/71
[2021-01-06] MEDS ORDERED: CLOT15CR27 TP (10:58)
== END 2021-01-06 11:24 | disposition home or self-care (01) ==
LOC: ER 10:03
DX: S90.122S Contusion of left lesser toe(s) without damage to nail, sequela (principal); B35.3 Tinea pedis; I10 Essential (primary) hypertension; F10.10 Alcohol abuse, uncomplicated; F17.200 Nicotine dependence, unspecified, uncomplicated; Z90.89 Acquired absence of other organs; Z90.49 Acquired absence of other specified parts of digestive tract; Z96.649 Presence of unspecified artificial hip joint; Z91.013 Allergy to seafood; Z88.6 Allergy status to analgesic agent; Z91.018 Allergy to other foods; Z59.0 Homelessness; Z79.899 Other long term (current) drug therapy; Y90.9 Presence of alcohol in blood, level not specified; W18.39XS Other fall on same level, sequela
CPT/HCPCS: 73660-TC

== ENCOUNTER 2021-02-09 13:48 | Emergency (ER) | payer MEDICARE, OTHER ==
[~2021-02-09] VITALS: Ht 160 cm; Wt 61.2 kg
[~2021-02-09 13:48] MED LIST changes: +CLOT15CR27 TP
[2021-02-09 14:05] VITALS: BP 116/86
--- NOTE | 2021-02-09 14:54 | NUR ---
PT LEFT WITHOUT BEING SEEN BY ED PROVIDED. STATES FEELING MUCH BETTER AND WILL SEE HER PMD.
== END 2021-02-09 14:57 | disposition left against medical advice (07) ==
LOC: ER 13:53
DX: Z53.21 Procedure and treatment not carried out due to patient leaving prior to being seen by health care provider (principal); M25.562 Pain in left knee; I10 Essential (primary) hypertension; Z86.73 Personal history of transient ischemic attack (TIA), and cerebral infarction without residual deficits; Z90.49 Acquired absence of other specified parts of digestive tract; Z90.89 Acquired absence of other organs; Z98.890 Other specified postprocedural states

== ENCOUNTER 2021-02-13 00:34 | Emergency (ER) | payer MEDICARE, OTHER ==
[~2021-02-13] VITALS: Ht 162.6 cm; Wt 60.8 kg
[2021-02-13 00:34] VITALS: BP 133/81
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
[2021-02-13] MEDS ORDERED: HYDROCODONE/APAP 5/325MG TABLET ONE (00:53)
[2021-02-13] MEDS ORDERED: HYDROCODONE/APAP 5/325MG TABLET PO ONE (01:00)
--- NOTE | 2021-02-13 04:08 | NUR ---
PATIENT IS SLEEPING.EASILY AROUSABLE. BREATHING EVENLY AND UNLABORED ON ROOM AIR. CONNECTED TO THE MONITOR. SIDE RAILS ARE UP FOR SAFETY. CALL LIGHT IS WITHIN REACH. PATIENT WILL BE CONTINUOUSLY MONITORED.
[2021-02-13] MEDS ORDERED: QUET200T PO (05:25)
[2021-02-13] MEDS ORDERED: GABA-532 PO (05:25)
[2021-02-13] MEDS ORDERED: PHEN100C4 PO (05:25)
--- NOTE | 2021-02-13 06:09 | NUR ---
Patient discharged to home in stable condition. Written and verbal after care instructions given. Patient verbalizes understanding of instruction.
== END 2021-02-13 06:10 | disposition home or self-care (01) ==
LOC: ER 00:34
DX: M79.673 Pain in unspecified foot (principal); G89.29 Other chronic pain; I10 Essential (primary) hypertension; Z59.0 Homelessness; Z86.73 Personal history of transient ischemic attack (TIA), and cerebral infarction without residual deficits; Z90.89 Acquired absence of other organs; Z90.49 Acquired absence of other specified parts of digestive tract; Z98.890 Other specified postprocedural states; Z88.6 Allergy status to analgesic agent; Z91.018 Allergy to other foods; Z91.013 Allergy to seafood; Z79.899 Other long term (current) drug therapy

== ENCOUNTER 2021-02-22 16:58 | Emergency (ER) | payer MEDICARE, OTHER ==
[~2021-02-22] VITALS: Ht 170.2 cm; Wt 61.7 kg
[~2021-02-22 16:58] MED LIST changes: +GABA-532 PO; +PHEN100C4 PO; +QUET200T PO
[2021-02-22 17:00] VITALS: BP 129/75
[2021-02-22 18:01] LABS: BILIRUBIN,URINE NEGATIVE (NEGATIVE); COLOR,URINE YELLOW (YELLOW); LEUKOCYTE ESTERASE ,URINE TRACE (NEGATIVE); NITRITE, URINE NEGATIVE (NEGATIVE); PROTEIN,URINE NEGATIVE (NEGATIVE); UGLUCOSE NEGATIVE (NEGATIVE)
[2021-02-22 18:07] LABS: BACTERIA,URINE 1+ /HPF (None Seen); RBC,URINE 0-2 /HPF (0-2); SQUAMOUS EPITHELIAL CELL,UR Few /HPF (None Seen)
[2021-02-22 18:42] LABS: BASOPHILS % (AUTO) 0.5 % (0.0-2.0); HEMATOCRIT 39 % (33-45); HEMOGLOBIN 13.2 g/dL (11.5-14.8); LYMPHOCYTES # (AUTO) 0.5 /CMM (0.8-4.8); LYMPHOCYTES % (AUTO) 8.9 % (20.0-44.0); MEAN CORPUSCULAR HGB CONC 34 g/dl (31.0-36.0); MEAN CORPUSCULAR VOLUME 92 fL (82-100); MONOCYTES # (AUTO) 0.4 /CMM (0.1-1.30); MONOCYTES % (AUTO) 6.8 % (2.0-12.0); NEUTROPHILS # (AUTO) 5.1 /CMM (1.8-8.9); NEUTROPHILS % (AUTO) 83.8 % (43.0-81.0); PLATELET COUNT (AUTO) 107 /CMM (150-450); RED BLOOD CELL COUNT(AUTO) 4.27 MIL/uL (4.0-5.2)
[2021-02-22 18:59] LABS: CALCIUM, SERUM 8.6 mg/dL (8.5-10.1); CARBON DIOXIDE 30 mmol/L (21-32); CHLORIDE 100 mmol/L (98-107); CREATININE 0.7 mg/dL (0.6-1.3); GLUCOSE 136 mg/dL (74-106); POTASSIUM 4.4 mmol/L (3.5-5.1); SODIUM SERUM 135 mmol/L (136-145); UREA NITROGEN, BLOOD 16 mg/dL (7-18)
[2021-02-22 19:06] LABS: ACETAMINOPHEN 0 ug/ml (10-30); ALANINE AMINOTRANSFERASE 32 U/L (12-78); ALBUMIN 2.7 g/dL (3.4-5.0); ALCOHOL, BLOOD < 3 mg/dL (0-0); ALKALINE PHOSPHATASE 209 U/L (46-116); ASPARTATE AMINOTRANSFERASE 45 U/L (15-37); BILIRUBIN,DIRECT 0.2 mg/dL (0.0-0.2); BILIRUBIN,TOTAL 0.6 mg/dL (0.2-1.0); TOTAL PROTEIN, SERUM 7.6 g/dL (6.4-8.2)
--- NOTE | 2021-02-22 19:35 | NUR ---
COVID SWAB SENT TO LAB
--- NOTE | 2021-02-22 20:16 | NUR ---
LAB CALLED REGARDING NEGATIVE COVID RESULT.
--- NOTE | 2021-02-22 21:28 | NUR ---
CLINICAL AND FACESHEET FAXED TO [facility] INTAKE FOR VOLUNTARY PSYCH ADMISSION.
--- NOTE | 2021-02-22 22:31 | NUR ---
PT NO LONGER WANTS TO WAIT FOR VOLUNTARY ADMISSION TO [facility] AND STATES SHE'S FEELILNG BETTER. PT DENIES SI/HI. REGAN HERNANDEZ MADE AWARE.
--- NOTE | 2021-02-22 22:37 | NUR ---
PT NOT IN ROOM FOR PT LEFT WITHOUT DISCHARGE PAPERS.
== END 2021-02-22 22:37 | disposition left against medical advice (07) ==
LOC: ER 16:58
DX: F32.9 Major depressive disorder, single episode, unspecified (principal); R94.5 Abnormal results of liver function studies; Z20.822 Contact with and (suspected) exposure to COVID-19; Z88.6 Allergy status to analgesic agent; Z91.018 Allergy to other foods; Z90.49 Acquired absence of other specified parts of digestive tract; Z96.649 Presence of unspecified artificial hip joint; I10 Essential (primary) hypertension; Z86.73 Personal history of transient ischemic attack (TIA), and cerebral infarction without residual deficits; G40.909 Epilepsy, unspecified, not intractable, without status epilepticus
CPT/HCPCS: 36415; 80048-TC; 80076-TC; 81001; 85025-TC; C9803; G0480

== ENCOUNTER 2021-02-23 00:38 | Emergency (ER) | payer MEDICARE, MEDICAID ==
--- NOTE | 2021-02-23 00:40 | NUR ---
PT REFUSE TRIAGE ASSESSMENT. PT VERBALLY ABUSIVE TO STAFF AND PARAMEDICS. PT LEFT ER.
== END 2021-02-23 01:10 | disposition home or self-care (01) ==
LOC: ER 00:41
DX: Z53.21 Procedure and treatment not carried out due to patient leaving prior to being seen by health care provider (principal)

== ENCOUNTER 2022-03-27 00:43 | Inpatient (IN) | payer MEDICARE, OTHER ==
[~2022-03-27] VITALS: Ht 170.2 cm; Wt 57.2 kg
[2022-03-27] MEDS ORDERED: ASCO-352 PO (18:00)
[2022-03-27] MEDS ORDERED: MULT-447 PO (18:00)
[2022-03-27] MEDS ORDERED: BLOOD SUGAR DIAGNOSTIC 1 EACH STRIP IN ONE (18:00)
[2022-03-27] MEDS ORDERED: MAGNESIUM HYDROXIDE 30 ML UDC PO PRN (18:00)
[2022-03-27] MEDS ORDERED: LACT10SO3 PO (18:00)
[2022-03-27] MEDS ORDERED: SENN-261 PO (18:00)
[2022-03-27] MEDS ORDERED: LEVE500T9 PO (18:00)
[2022-03-27] MEDS ORDERED: DOCU250C14 PO (18:00)
[2022-03-27] MEDS ORDERED: LORAZEPAM 0.5 MG TABLET PO PRN (18:00)
[2022-03-27] MEDS ORDERED: OLAN10TA3 PO (18:00)
[2022-03-27] MEDS ORDERED: MAG HYDROX/AL HYDROX/SIMETH 30 ML UDC PO PRN (18:00)
[2022-03-27] MEDS ORDERED: MIRT45TA83 PO (18:00)
--- NOTE | 2022-03-27 18:03 | NUR ---
GPS ADMIT AFTER REPORT RECEIVED. PATIENT ORIENTED TO PRIMARY RN, UNIT, ROOM, BED, AND UNIT POLICIES REGARDING PATIENT CARE. PATIENT WEIGHED BY BED SCALE AND ENCOURAGED TO CALL IF THEY NEED SOMETHING. ALL QUESTIONS AND CONCERNS ADDRESSED. PATIENT VERBALIZED UNDERSTANDING. BLOOD SUGAR TAKEN: 102.
[2022-03-27 18:04] VITALS: BP 131/66
[2022-03-27 20:57] VITALS: BP 101/52
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
[2022-03-28] MEDS ORDERED: DOCUSATE SODIUM 250 MG CAPSULE PO PRN (00:30)
[2022-03-28 06:51] LABS: ALBUMIN 2.9 g/dL (3.4-5.0); BILIRUBIN,TOTAL 0.5 mg/dL (0.2-1.0); CALCIUM, SERUM 8.6 mg/dL (8.5-10.1); CREATININE 0.6 mg/dL (0.6-1.3); TOTAL PROTEIN, SERUM 7.2 g/dL (6.4-8.2)
[2022-03-28 07:00] LABS: CHOLESTEROL 100 mg/dL (<200); HDL CHOLESTEROL 33 mg/dL (40-60); LDL 58 mg/dL (0-99); TRIGLYCERIDES 54 mg/dL (30-150)
--- NOTE | 2022-03-28 07:02 | NUR ---
RN GPS NOTE: ATTEMPTED TO NOTIFY NEXT OF KIN WITH THE PROVIDED NUMBER. UNABLE TO CALL NUMBER X3 THE NUMBER PROVIDED WAS NOT WORKING.
[2022-03-28 08:00] VITALS: BP 95/59
[2022-03-28] MEDS: LEVETIRACETAM (250 MG) 250 MG TABLET PO SCH ×2 (08:22→21:09)
[2022-03-28] MEDS: LACTULOSE 10 G/15 ML UDC (PYXIS) PO SCH ×3 (08:22→16:25)
[2022-03-28] MEDS: SENNOSIDES 8.6 MG TABLET PO SCH ×2 (08:22→16:25)
[2022-03-28] MEDS: ASCORBIC ACID 500 MG TABLET PO SCH (08:23)
[2022-03-28] MEDS: MULTIVITAMINS,THERAGRAN 1 UDTAB TABLET PO SCH (08:23)
[2022-03-28 15:12] VITALS: BP 115/59
[2022-03-28 19:41] VITALS: BP 144/82
--- NOTE | 2022-03-28 19:51 | NUR ---
GPS RN OPENING NOTES: RECEIVED PATIENT AMBULATING IN HALLWAY, A/O X2. PATIENT APPEARS DEPRESSED, FLAT AFFECT, ANXIOUS, PASSIVE, DISORGANIZED, FORGETFUL. WHEN ASKED IF PATIENT STILL HAVE SUICIDAL IDEATION, PATIENT STATED "NO I DON'T WANT TO KILL MYSELF". DENIES PAIN AT THIS TIME. NO S/S OF DISTRESS. RESPIRATION EVEN AND UNLABORED WITH EQUAL RISE AND FALL OF THE CHEST, ON ROOM AIR. OFFERED FLUID AND SNACKS TOLERATED. WILL CONTINUE TO MONITOR Q15 FOR MOOD, SAFETY AND BEHAVIOR.
[2022-03-28] MEDS ORDERED: SERTRALINE HCL 50 MG TABLET PO SCH (20:30)
[2022-03-28] MEDS: LITHIUM CARBONATE (300 MG CAP) 300 MG CAPSULE PO SCH (21:09)
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
[2022-03-29 08:00] VITALS: BP 104/63
[2022-03-29] MEDS: LACTULOSE 10 G/15 ML UDC (PYXIS) PO SCH ×3 (08:09→16:23)
[2022-03-29] MEDS: SERTRALINE HCL 50 MG TABLET PO SCH (08:10)
[2022-03-29] MEDS: LITHIUM CARBONATE (300 MG CAP) 300 MG CAPSULE PO SCH ×2 (08:10→21:03)
[2022-03-29] MEDS: LEVETIRACETAM (250 MG) 250 MG TABLET PO SCH ×2 (08:10→21:03)
[2022-03-29] MEDS: ASCORBIC ACID 500 MG TABLET PO SCH (08:12)
[2022-03-29] MEDS: SENNOSIDES 8.6 MG TABLET PO SCH ×2 (08:12→16:24)
[2022-03-29] MEDS: MULTIVITAMINS,THERAGRAN 1 UDTAB TABLET PO SCH (08:12)
--- NOTE | 2022-03-29 09:39 | NUR ---
RN-CO: Patient in her room, took her pscyhiatric medication but refused medical drugs. Unkempt and disheveled, unmotivated to selfcare. She is isolative, guarded and up for needs only. She denied pain and discomforts.I will continue to monitor and keep her safe.
--- NOTE | 2022-03-29 10:18 | NUR ---
JEREMIAS Clinical Note: Pt placed on a 5150 hold for danger to herself. Pt was brought to the hospital because she stated she was "suicidal" and wanted to wheel herself into the street. Patient currently resides at [address] [place] [address]; ([phone]). JEREMIAS spoke with admin Nancy ([phone]) who stated that pt is welcomed back upon dc. Pt does not have any supportive support. Pt's person to notify is Reg ([phone]) and pt requested not to contact.
--- NOTE | 2022-03-29 10:18 | NUR ---
JEREMIAS Initial Discharge Plan: Patient currently resides at [address] [place] [address]; ([phone]). JEREMIAS spoke with admin Nancy ([phone]) who stated that pt is welcomed back upon dc. Pt does not have any supportive support. Pt's person to notify is Reg ([phone]) and pt requested not to contact. JEREMIAS will work with the MD and pt to help coordinate appropriate dc.
--- NOTE | 2022-03-29 10:19 | NUR ---
Treatment Plan: Pt refused to sign treatment plan and was suspicious.
--- NOTE | 2022-03-29 12:12 | NUR ---
RN-CO: PATIENT REFUSED TO TAKE LACTULOSE, STATED " I WILL TAKE IT LATER IN THE AFTERNOON."
[2022-03-29 16:00] VITALS: BP 100/64
[2022-03-29] MEDS ORDERED: BUMETANIDE (1 MG) 1 MG TABLET PO SCH ×3 (18:00)
--- NOTE | 2022-03-29 19:20 | NUR ---
GPS RN NOTES PATIENT IN BED RESTING COMFORTABLY. ALERT AND ORIENTED X2, NO S/SX OF ACUTE DISTRESS NOTED. PATIENT REMAINS ISOLATIVE, GUARDED, ANXIOUS AT TIMES, UNMOTIVATED TO SELF CARE, UNKEMPT AND DISHEVELED. NO VERBALIZATION OF THOUGHTS AND FEELINGS. ENCOURAGED PATIENT TO ATTEND IN GROUP ACTIVITIES. SAFETY PRECAUTIONS IN PLACE. WILL CONTINUE TO MONITOR Q15MIN ROUNDS FOR SAFETY AND BEHAVIOR.
[2022-03-29 20:00] VITALS: BP 131/78
[2022-03-29] MEDS: TEMAZEPAM 7.5 MG CAPSULE PO PRN (22:27)
[2022-03-30 08:00] VITALS: BP 100/65
[2022-03-30] MEDS: MULTIVITAMINS,THERAGRAN 1 UDTAB TABLET PO SCH (08:19)
[2022-03-30] MEDS: LITHIUM CARBONATE (300 MG CAP) 300 MG CAPSULE PO SCH ×2 (08:20→20:33)
[2022-03-30] MEDS: SERTRALINE HCL 50 MG TABLET PO SCH (08:20)
[2022-03-30] MEDS: LEVETIRACETAM (250 MG) 250 MG TABLET PO SCH ×2 (08:20→20:34)
[2022-03-30] MEDS: SENNOSIDES 8.6 MG TABLET PO SCH ×3 (08:20→16:29)
[2022-03-30] MEDS: ASCORBIC ACID 500 MG TABLET PO SCH (08:20)
[2022-03-30] MEDS: LACTULOSE 10 G/15 ML UDC (PYXIS) PO SCH ×4 (08:22→16:29)
--- NOTE | 2022-03-30 10:00 | NUR ---
RN Notes: Received pt. asleep in bed, breathing is even and unlabored. Ate 25% for breakfast, refused for Lactulose and Sennokot and compliant on the rest of the meds. Pt. is unkept and irritable, encouraged to verbalize feelings, encouraged to take shower and motivated to attend group activity. Needs attended and will continue to monitor for safety.
--- NOTE | 2022-03-30 15:53 | NUR ---
Per pt. she doesn't have an advance directive and wanted a full code.
[2022-03-30 16:00] VITALS: BP 135/89
--- NOTE | 2022-03-30 19:30 | NUR ---
GPS RN NOTE, RECEIVED PATIENT AWAKE AND IN BED, NO S/S OR COMPLAINTS OF PAIN AT THIS TIME. PATIENT IS DISPLAYING NO S/S OF APPARENT DISTRESS AT THIS TIME. PATIENT BREATHING IS UNLABORED WITH EQUAL RISE AND FALL OF THE CHEST. PATIENT IS ALERT AND ORIENTED X 2 ON ROOM AIR WITH A SPO2 95%. PATIENT IS COMPLIANT WITH MEDICATIONS, CONFUSED, ANXIOUS, PARANOID, NEEDS REDIRECTION, AND COOPERATIVE. PATIENT DENIES SUICIDAL AND HOMICIDAL IDEATIONS AT THIS TIME. PATIENT ASSISTED WITH TURNING AND REPOSITIONING Q2HR AND PRN FOR COMFORT AND CIRCULATION. PATIENT HAS NO NEEDS AT THIS TIME. PATIENT EDUCATED ON THE USE OF THE CALL BO. PATIENT BED SIDE RAILS UP X 2 FOR SAFETY. PATIENT BED IS LOCKED, LOW, WITH BED ALARM ON. WILL CONTINUE TO MONITOR THIS PATIENT Q15 MINUTES WITH THE HELP OF STAFF TO MAINTAIN SAFETY.
[2022-03-30 20:00] VITALS: BP 100/59
[2022-03-31 08:00] VITALS: BP 99/59
[2022-03-31] MEDS: MULTIVITAMINS,THERAGRAN 1 UDTAB TABLET PO SCH (08:42)
[2022-03-31] MEDS: ASCORBIC ACID 500 MG TABLET PO SCH (08:42)
[2022-03-31] MEDS: LEVETIRACETAM (250 MG) 250 MG TABLET PO SCH ×2 (08:42→21:14)
[2022-03-31] MEDS: LITHIUM CARBONATE (300 MG CAP) 300 MG CAPSULE PO SCH ×2 (08:42→21:13)
[2022-03-31] MEDS: SERTRALINE HCL 25 MG TABLET PO SCH (08:44)
[2022-03-31] MEDS: LACTULOSE 10 G/15 ML UDC (PYXIS) PO SCH ×3 (08:45→17:00)
[2022-03-31] MEDS: SENNOSIDES 8.6 MG TABLET PO SCH ×2 (08:45→17:00)
--- NOTE | 2022-03-31 09:45 | NUR ---
RN Notes: Received pt. awake in bed, responsive to staffs, quiet, with depressed mood. Pt. refused to eat breakfast and said she is not hungry, refused to take Lactulose and refused Sennokot and agrred for lab draw. Encouraged to verbalize feelings and motivated to attend group activity. Needs attended and will continue to monitor for safety.
--- NOTE | 2022-03-31 10:52 | NUR ---
Court Notification: Patient does not have any family members to notify of [id number].
--- NOTE | 2022-03-31 10:53 | NUR ---
Court Hearing: Patient's court hearing for [id number] was today and it was upheld for danger to herself.
[2022-03-31 16:00] VITALS: BP 113/64
[2022-03-31 19:37] VITALS: BP 106/65
[2022-03-31 20:16] VITALS: BP 106/65
[2022-04-01 08:00] VITALS: BP 108/62
[2022-04-01] MEDS: LACTULOSE 10 G/15 ML UDC (PYXIS) PO SCH ×3 (09:00→17:00)
[2022-04-01] MEDS: SENNOSIDES 8.6 MG TABLET PO SCH ×2 (09:00→17:00)
[2022-04-01] MEDS: MULTIVITAMINS,THERAGRAN 1 UDTAB TABLET PO SCH (09:39)
[2022-04-01] MEDS: ASCORBIC ACID 500 MG TABLET PO SCH (09:39)
[2022-04-01] MEDS: SERTRALINE HCL 25 MG TABLET PO SCH (09:39)
[2022-04-01] MEDS: LITHIUM CARBONATE (300 MG CAP) 300 MG CAPSULE PO SCH ×2 (09:39→21:15)
[2022-04-01] MEDS: LEVETIRACETAM (250 MG) 250 MG TABLET PO SCH ×2 (09:40→21:15)
[2022-04-01 16:00] VITALS: BP 106/68
--- NOTE | 2022-04-01 18:00 | NUR ---
cooperative,pleasant,very confused.vitals stable.
[2022-04-01 20:14] VITALS: BP 104/60
[2022-04-01 20:20] VITALS: BP 104/60
[2022-04-02 08:00] VITALS: BP 113/72
[2022-04-02] MEDS: SENNOSIDES 8.6 MG TABLET PO SCH ×2 (08:11→16:15)
[2022-04-02] MEDS: LACTULOSE 10 G/15 ML UDC (PYXIS) PO SCH ×3 (08:12→16:15)
[2022-04-02] MEDS: ENSURE ENLIVE 237 ML LIQUID (VANILLA) PO SCH ×2 (08:14→16:59)
[2022-04-02] MEDS: MULTIVITAMINS,THERAGRAN 1 UDTAB TABLET PO SCH (08:53)
[2022-04-02] MEDS: LITHIUM CARBONATE (300 MG CAP) 300 MG CAPSULE PO SCH ×2 (08:53→21:36)
[2022-04-02] MEDS: ASCORBIC ACID 500 MG TABLET PO SCH (08:54)
[2022-04-02] MEDS: LEVETIRACETAM (250 MG) 250 MG TABLET PO SCH ×2 (08:54→21:36)
[2022-04-02] MEDS: SERTRALINE HCL 25 MG TABLET PO SCH (08:54)
--- NOTE | 2022-04-02 14:18 | NUR ---
RN-CO: PT IS ANXIOUS AND CRYING BUT REFUSED TO VERBALIZED. ATIVAN 1 MG PO GIVEN.
[2022-04-02 16:00] VITALS: BP 131/77
--- NOTE | 2022-04-02 19:20 | NUR ---
GPS RN NOTES RECEIVED PATIENT IN BED RESTING COMFORTABLY. ALERT AND ORIENTED X1, NO S/SX OF ACUTE DISTRESS NOTED. PATIENT REMAINS ISOLATIVE, ANXIOUS AT TIMES, CONFUSED, UNMOTIVATED TO SELF CARE, UNKEMPT AND DISHEVELED. NO VERBALIZATION OF THOUGHTS AND FEELINGS. SAFETY PRECAUTIONS IN PLACE. WILL CONTINUE TO MONITOR Q15MIN ROUNDS FOR SAFETY AND BEHAVIOR.
[2022-04-02 19:54] VITALS: BP 118/51
[2022-04-03 08:00] VITALS: BP 110/52
[2022-04-03] MEDS: LACTULOSE 10 G/15 ML UDC (PYXIS) PO SCH ×3 (09:00→17:00)
[2022-04-03] MEDS: LEVETIRACETAM (250 MG) 250 MG TABLET PO SCH ×2 (09:16→21:11)
[2022-04-03] MEDS: MULTIVITAMINS,THERAGRAN 1 UDTAB TABLET PO SCH (09:16)
[2022-04-03] MEDS: SENNOSIDES 8.6 MG TABLET PO SCH ×2 (09:16→17:19)
[2022-04-03] MEDS: LITHIUM CARBONATE (300 MG CAP) 300 MG CAPSULE PO SCH ×2 (09:16→21:11)
[2022-04-03] MEDS: ENSURE ENLIVE 237 ML LIQUID (VANILLA) PO SCH ×2 (09:16→17:20)
[2022-04-03] MEDS: ASCORBIC ACID 500 MG TABLET PO SCH (09:20)
[2022-04-03] MEDS: SERTRALINE HCL 25 MG TABLET PO SCH (09:21)
[2022-04-03 16:00] VITALS: BP 113/70
--- NOTE | 2022-04-03 16:00 | NUR ---
Individual Counseling: SW met with pt. at bedside to facilitate individual counseling. The pt. was sleeping and not rousable to verbal cues. SW will attempt at a later time.
[2022-04-03 19:43] VITALS: BP 102/70
[2022-04-04 08:00] VITALS: BP 110/63
[2022-04-04] MEDS: LACTULOSE 10 G/15 ML UDC (PYXIS) PO SCH ×3 (08:47→16:10)
[2022-04-04] MEDS: SERTRALINE HCL 25 MG TABLET PO SCH (08:48)
[2022-04-04] MEDS: MULTIVITAMINS,THERAGRAN 1 UDTAB TABLET PO SCH (08:49)
[2022-04-04] MEDS: SENNOSIDES 8.6 MG TABLET PO SCH ×2 (08:49→16:10)
[2022-04-04] MEDS: LEVETIRACETAM (250 MG) 250 MG TABLET PO SCH ×2 (08:50→20:22)
[2022-04-04] MEDS: ASCORBIC ACID 500 MG TABLET PO SCH ×2 (08:50→08:54)
[2022-04-04] MEDS: LITHIUM CARBONATE (300 MG CAP) 300 MG CAPSULE PO SCH ×2 (08:50→20:22)
[2022-04-04] MEDS: ENSURE ENLIVE 237 ML LIQUID (VANILLA) PO SCH ×2 (08:51→16:11)
--- NOTE | 2022-04-04 09:29 | NUR ---
RN-CO: Patient remains isolative, refused her lactulose this morning and afternoon. No interaction with peers, smiles when approach. She denied suicidal ideation. Unmotivated to selfcare. ASSISTED TO FEEDING.
--- NOTE | 2022-04-04 09:43 | NUR ---
SNF Contact: JEREMIAS spoke with Dora ([phone]) and notified that pt will be discharged 04/06 and to notify Nancy admin. She stated pt is welcomed back. JEREMIAS faxed update clinicals ([phone]).
--- NOTE | 2022-04-04 13:22 | NUR ---
RN-CO: PATIENT REMAINS ISOLATIVE AND DPERESSED. SHE IS STILL UNMOTIVATED TO SELFCARE. OFFERED HER NOURISHMENT AND FLUIDS AND ASSITED TO EAT. ENCOURAGED TO SHOWER.
[2022-04-04 16:00] VITALS: BP 104/57
[2022-04-04 20:28] VITALS: BP 113/76
[2022-04-04 22:51] VITALS: BP 113/65
[2022-04-05 08:00] VITALS: BP 102/61
[2022-04-05] MEDS: LITHIUM CARBONATE (300 MG CAP) 300 MG CAPSULE PO SCH ×2 (08:56→21:21)
[2022-04-05] MEDS: SERTRALINE HCL 25 MG TABLET PO SCH (08:57)
[2022-04-05] MEDS: SENNOSIDES 8.6 MG TABLET PO SCH ×2 (08:57→17:09)
[2022-04-05] MEDS: MULTIVITAMINS,THERAGRAN 1 UDTAB TABLET PO SCH (08:57)
[2022-04-05] MEDS: LEVETIRACETAM (250 MG) 250 MG TABLET PO SCH ×2 (08:57→21:22)
[2022-04-05] MEDS: ASCORBIC ACID 500 MG TABLET PO SCH (08:59)
[2022-04-05] MEDS: LACTULOSE 10 G/15 ML UDC (PYXIS) PO SCH ×3 (09:00→17:00)
[2022-04-05] MEDS: ENSURE ENLIVE 237 ML LIQUID (VANILLA) PO SCH ×2 (09:10→17:04)
[2022-04-05 16:00] VITALS: BP 101/52
--- NOTE | 2022-04-05 18:29 | NUR ---
RN-NOTES PATIENT IN THE DAY ROOM WATCHING TV,GUARDED,CALM NO ACUTE DISTRESS NOTED. SELECTIVE WITH MEDICATIONS. NEEDS MINIMAL ASSIST WITH ADL'S.ALL NEEDS ATTENDED AND ANTICIPATED. WILL CONT. MONITORING FOR SAFETY AND BEHAVIOR. WILL ENDORSE TO INCOMING SHIFT FOR CONTINUITY OF CARE.
[2022-04-05 20:00] VITALS: BP 106/71
[2022-04-05] MEDS: TEMAZEPAM 7.5 MG CAPSULE PO PRN (21:22)
[2022-04-06 08:00] VITALS: BP 108/65
--- NOTE | 2022-04-06 08:01 | NUR ---
SW Discharge Note: Patient will discharge back to [facility] located at [address] [place] [address]; ([phone]). Please arrange ambulance at 1PM. Patient is alert and oriented x2. Patient denies suicidal or homicidal ideation. Patient denies visual/auditory hallucinations. Patient does not have any supportive contact. Patient will follow up with (Counter Top Maker) Dr. Pickett located at [address] [address]; ([phone]). Patient will follow up with (Psychiatrist) Dr. Carmona located at [address], [place] [address]; ([phone]). Patient presents with euthymic mood and congruent affect.
[2022-04-06] MEDS: SENNOSIDES 8.6 MG TABLET PO SCH (08:53)
[2022-04-06] MEDS: LEVETIRACETAM (250 MG) 250 MG TABLET PO SCH (08:53)
[2022-04-06] MEDS: LITHIUM CARBONATE (300 MG CAP) 300 MG CAPSULE PO SCH (08:53)
[2022-04-06] MEDS: MULTIVITAMINS,THERAGRAN 1 UDTAB TABLET PO SCH (08:53)
[2022-04-06] MEDS: SERTRALINE HCL 25 MG TABLET PO SCH (08:53)
[2022-04-06] MEDS: ASCORBIC ACID 500 MG TABLET PO SCH (08:54)
[2022-04-06] MEDS: ENSURE ENLIVE 237 ML LIQUID (VANILLA) PO SCH (09:00)
[2022-04-06] MEDS: LACTULOSE 10 G/15 ML UDC (PYXIS) PO SCH ×2 (09:00→13:00)
--- NOTE | 2022-04-06 14:31 | NUR ---
RN-DISCHARGE NOTES PATIENT HAD A DISCHARGE ORDER FROM DR. KAUFMAN ( PSYCHIATRIST),DR. MANRIQUE ( MIXING TANK OPERATOR) MEDICALLY DISCHARGE PATIENT FOR DISCHARGE. REPORT WAS GIVEN TO JAVIER (CAREER SERVICES COORDINATOR). PATIENT DID NOT VERBALIZE SI/HI,DENIES VISUAL/AUDITORY HALLUCINATIONS AT THE TIME OF DISCHARGE. PATIENT LEFT THE UNIT IN STABLE CONDITION A/O X2 . TRANSFERRER BY AMBULANCE VIA GURNEY WITH TWO STAFF ASSIST.ALL BELONGINGS WAS GIVEN BACK TO THE PATIENT INCLUDING OWN WHEEL CHAIR. AND CLOTHES.AMBULANCE STAFF. NO FAMILY TO NOTIFY ON THE DISCHARGE.
== END 2022-04-06 14:30 | DRG 885 ==
LOC: GPS 17:15
PROVIDERS: ADMIT Psychiatry & Neurology Psychiatry; ATTEND Internal Medicine
DX: F31.30 Bipolar disorder, current episode depressed, mild or moderate severity, unspecified (principal); B19.20 Unspecified viral hepatitis C without hepatic coma; R45.851 Suicidal ideations; F23 Brief psychotic disorder; F29 Unspecified psychosis not due to a substance or known physiological condition; F41.9 Anxiety disorder, unspecified; I10 Essential (primary) hypertension; K74.60 Unspecified cirrhosis of liver; E03.9 Hypothyroidism, unspecified; M19.90 Unspecified osteoarthritis, unspecified site; G40.909 Epilepsy, unspecified, not intractable, without status epilepticus; G31.84 Mild cognitive impairment of uncertain or unknown etiology; F17.200 Nicotine dependence, unspecified, uncomplicated; F19.10 Other psychoactive substance abuse, uncomplicated; Z96.649 Presence of unspecified artificial hip joint; Z90.49 Acquired absence of other specified parts of digestive tract; Z59.00 Homelessness unspecified
CPT/HCPCS: 36415; 80053-TC; 80061-TC; 82962-TC; 97116-TC; 97530-TC; A6253

== ENCOUNTER → 2023-06-07 | Emergency (ER) | payer BC, OTHER ==
[~2023-06-07] VITALS: Ht 165.1 cm; Wt 63.5 kg
[~2023-06-07] MED LIST changes: +ASCO-352 PO; -CLOT15CR27 TP; +DOCU250C14 PO; -GABA-532 PO; +LACT10SO3 PO; +LEVE500T9 PO; +MULT-447 PO; -PHEN100C12 PO; -PHEN100C4 PO; -QUET200T PO; +SENN-261 PO
--- NOTE | 2023-06-07 15:10 | NUR ---
BREANNA CHAN "Was sitting in front of [employer] in her wheelchair. complaining of leg pain
--- NOTE | 2023-06-07 15:15 | NUR ---
dr cristina at bedside for eval
[2023-06-07 16:11] VITALS: BP 120/80; TEMP 98.2; O2SAT 97
--- NOTE | 2023-06-07 16:11 | NUR ---
Patient discharged to home in stable condition. Written and verbal after care instructions given. Patient verbalizes understanding of instruction.
== END | disposition home or self-care (01) ==
LOC: ER 14:57
DX: M79.605 Pain in left leg (principal); I10 Essential (primary) hypertension; F17.200 Nicotine dependence, unspecified, uncomplicated; Z86.73 Personal history of transient ischemic attack (TIA), and cerebral infarction without residual deficits; Z79.899 Other long term (current) drug therapy; Z60.2 Problems related to living alone; Z88.1 Allergy status to other antibiotic agents
CPT/HCPCS: 99283; A6253; A6403

== ENCOUNTER 2023-07-04 04:02 | Emergency (ER) | payer BC, MEDICAID ==
[~2023-07-04] VITALS: Ht 165.1 cm; Wt 63.5 kg
[2023-07-04 04:59] VITALS: BP 124/79; TEMP 98.1; O2SAT 99
== END 2023-07-04 05:00 | disposition home or self-care (01) ==
LOC: ER 04:03
DX: K94.03 Colostomy malfunction (principal); I10 Essential (primary) hypertension; Z79.899 Other long term (current) drug therapy; Z60.2 Problems related to living alone; Z91.013 Allergy to seafood; Z88.1 Allergy status to other antibiotic agents; Y83.3 Surgical operation with formation of external stoma as the cause of abnormal reaction of the patient, or of later complication, without mention of misadventure at the time of the procedure

== ENCOUNTER 2023-07-18 06:12 | Emergency (ER) | payer BC, OTHER ==
[~2023-07-18] VITALS: Ht 162.6 cm; Wt 66.2 kg
[2023-07-18 06:16] VITALS: BP 102/55; TEMP 98.1
[2023-07-18 11:19] VITALS: O2SAT 98
== END 2023-07-18 11:19 | disposition home or self-care (01) ==
LOC: ER 06:14
DX: K94.03 Colostomy malfunction (principal); I10 Essential (primary) hypertension; Z90.89 Acquired absence of other organs; Z90.49 Acquired absence of other specified parts of digestive tract; Z96.649 Presence of unspecified artificial hip joint; Z91.013 Allergy to seafood; Z88.8 Allergy status to other drugs, medicaments and biological substances; Z91.018 Allergy to other foods; Z60.2 Problems related to living alone
CPT/HCPCS: 99283; A4362